=== PATIENT | male | born 1960 | race Two or more races ===

== ENCOUNTER → 2020-09-25 10:04 | Outpatient (REF) | payer MEDICARE, MEDICAID, SELFPAY | LOC: HO.CARD 10:04 | PROVIDERS: Visit Provider Internal Medicine Cardiovascular Disease | DX: Z13.89 Encounter for screening for other disorder (principal) ==

== ENCOUNTER 2020-10-05 23:17 | Emergency (ER) | payer MEDICARE, MEDICAID, SELFPAY ==
--- NOTE | 2020-10-05 | ECG_ITS ---
Test Reason : CP Blood Pressure : / mmHG Vent. Rate : 062 BPM Atrial Rate : 062 BPM P-R Int : 160 ms QRS Dur : 082 ms QT Int : 416 ms P-R-T Axes : 050 015 -10 degrees QTc Int : 422 ms Normal sinus rhythm Normal ECG No previous ECGs available Referred By: Matthew Maher Electronically Signed By:DAPHNE DAO
--- NOTE | ~2020-10-05 | XR_ITS ---
EXAMINATION: XR CHEST CLINICAL INFORMATION: Chest pain, Covid positive COMPARISON: None TECHNIQUE: Frontal view of the chest was obtained. FINDINGS: No significant abnormality is noted involving the heart, lungs, mediastinum, bony thorax or soft tissues. XR/XR chest 1V IMPRESSION: Unremarkable examination.
[2020-10-05 23:23] VITALS: BP 136/65; PULSE 65; RESP 16; TEMP 36.8; O2SAT 99; BMI 33.2
[2020-10-05 23:29] VITALS: BP 139/81; PULSE 63; RESP 14; TEMP 36.8; O2SAT 98
--- NOTE | 2020-10-05 23:38 | ED.CHESTPAIN ---
HPI - Chest Pain General Chief Complaint: Chest Pain Stated Complaint: cp Time Seen by Provider: 10/05/20 23:38 Source: patient Mode of arrival: ambulatory Limitations: no limitations History of Present Illness HPI narrative: Patient nonsmoker no obstructive coronary artery disease in the past had chest pain 2018 and cardiac catheterization was done which was negative was diagnosed with COVID today as outpatient had slight headache sore throat for last 2 days no shortness of breath no cough comes here as he noticed left-sided dull pain for last half an hour gone after arrival to the ER complaint: chest pain Onset (ago): hour(s) Timing of current episode: constant Prior episodes: Yes Onset: during rest Pain location: left chest Pain radiation: none Severity: mild Quality: aching Relieving factors: nothing Related Data Allergies Allergy/AdvReac Type Severity Reaction Status Date / Time aspirin [ASPIRIN] Allergy Unknown ITCHING Unverified 03/14/20 19:38 penicillin G Allergy Unknown Verified 12/20/19 00:00 Penicillins [PENICILLINS] Allergy Unknown SWELLING Unverified 03/14/20 19:38 Review of Systems Review of Systems: Constitutional : No Weight loss, No Fever, No Chills ENT/Mouth : No sore throat, No Rhinorrhea Eyes: No Eye Pain, No Swelling Cardiovascular : + Chest Pain, no palpitations Respiratory : No Cough, No Sputum, no shortness of breath Gastrointestinal : no Nausea, No Vomiting, No Diarrhea, No abdominal Pain, no black stools Genitourinary : No Dysuria, No Urinary Frequency Musculoskeletal : No joint pain, No Myalgias, No Joint Swelling Skin : No Skin Lesions, No rash Neuro : No Weakness, No Numbness, No Dizziness, No Headache Psych : No Anxiety/Panic, No Depression Heme/Lymph: No Bruising, No Lymphadenopathy Endocrine : No Polyuria, No Polydipsia All other systems reviewed and are negative PMFSH Past Medical History Surgical History (Updated 10/06/20 @ 01:00 by Matthew Maher MD) Hx of cardiac cath Social History Social History Alcohol intake: never Smoking Status: Never smoker Use of substances other than those prescribed or required for medical reasons: No Advance Directives: No Physical Exam Vital Signs: Vital Signs: Last Vital Signs Temp 98.3 F 10/05/20 23:29 Pulse 63 10/05/20 23:29 Resp 14 10/05/20 23:29 BP 139/81 04/10/21 23:29 Pulse Ox 98 10/05/20 23:29 Body Mass Index 33.2 Appearance: Alert. Oriented X3. No acute distress. Eyes: Pupils equal, round and reactive to light. ENT: Pharynx normal. Neck: Normal inspection. Neck supple. CVS: Normal heart rate and rhythm. Pulses normal. Respiratory: No respiratory distress. Breath sounds normal. Abdomen: Soft and nontender. Bowel sounds are present, no mass palpable, no CVA tenderness Skin: Skin warm and dry. Normal skin color. Normal skin turgor. Extremities: No lower extremity edema. No calf tenderness Neuro: Oriented X 3. No motor deficit. No sensory deficit. MDM - Chest Pain MDM Narrative Medical decision making narrative: Patient has atypical chest pain EKG without any ischemic changes D-dimer negative recent cardiac catheterization 2 years ago was negative will discharge patient home likely noncardiac chest pain Lab Data Attestation: I reviewed the patient's lab results. Result diagrams: 10/06/20 00:07 10/06/20 00:07 Labs: Lab Results 10/06/20 10/06/20 10/06/20 Range/Units 00:07 00:07 00:07 WBC 4.9 (4.8-10.8) X10*3/uL RBC 4.44 L (4.60-5.80) X10*6/uL Hgb 13.8 L (14.0-18.0) g/dl Hct 39.7 L (42-52) % MCV 89.4 (80-98) fL MCH 31.1 (27.0-33.0) pg MCHC 34.8 (31.0-36.0) g/dl RDW 12.4 (11.0-16.0) % Plt Count 238 (160-400) X10*3/uL MPV 9.6 (9.4-12.4) fL Immature Gran % (Auto) 0.2 (0.0-0.4) % Neut % (Auto) 18.7 L (45-73) % Lymph % (Auto) 61.5 H (20-40) % Caroline % (Auto) 15.4 H (2-11) % Eos % (Auto) 3.8 (0-4) % Baso % (Auto) 0.4 (0-2) % Lymph # (Auto) 3.0 (1.2-4.9) X10*3/uL Caroline # (Auto) 0.8 (0.1-1.2) X10*3/uL Eos # (Auto) 0.2 (0.0-0.4) X10*3/uL Baso # (Auto) 0.0 (0.0-0.2) X10*3/uL Abs Immat Gran (auto) 0.01 (0.00-0.03) X10*3/uL Absolute Neuts (auto) 0.9 L (2.0-8.3) X10*3/uL Absolute Nucleated RBC 0.000 (0.0-0.012) X10*3/uL Nucleated RBC % (auto) 0.0 (0.0-0.2) /100WBC Smear Tech's Comments VERIFIED PT 11.9 (10.8-13.0) SEC INR 1.0 (0.9-1.1) APTT 32.7 (24.1-38.0) SEC D-Dimer < 200 NG/ML Sodium 138 (135-145) mmol/L Potassium 4.3 (3.3-5.1) mmol/L Chloride 107 (96-108) mmol/L Carbon Dioxide 22 (22-29) mmol/L Anion Gap 13 (12-20) BUN 15 (9-16) mg/dL Creatinine 0.85 (0.5-1.4) mg/dL Estim Creat Clear Calc 111.5 Estimated GFR > 60 Random Glucose 112 (60-115) mg/dL Calcium 8.5 (8.4-10.2) mg/dL Troponin I High Sens (<3.5-35.0) ng/L 10/06/20 Range/Units 00:07 WBC (4.8-10.8) X10*3/uL RBC (4.60-5.80) X10*6/uL Hgb (14.0-18.0) g/dl Hct (42-52) % MCV (80-98) fL MCH (27.0-33.0) pg MCHC (31.0-36.0) g/dl RDW (11.0-16.0) % Plt Count (160-400) X10*3/uL MPV (9.4-12.4) fL Immature Gran % (Auto) (0.0-0.4) % Neut % (Auto) (45-73) % Lymph % (Auto) (20-40) % Caroline % (Auto) (2-11) % Eos % (Auto) (0-4) % Baso % (Auto) (0-2) % Lymph # (Auto) (1.2-4.9) X10*3/uL Caroline # (Auto) (0.1-1.2) X10*3/uL Eos # (Auto) (0.0-0.4) X10*3/uL Baso # (Auto) (0.0-0.2) X10*3/uL Abs Immat Gran (auto) (0.00-0.03) X10*3/uL Absolute Neuts (auto) (2.0-8.3) X10*3/uL Absolute Nucleated RBC (0.0-0.012) X10*3/uL Nucleated RBC % (auto) (0.0-0.2) /100WBC Smear Tech's Comments PT (10.8-13.0) SEC INR (0.9-1.1) APTT (24.1-38.0) SEC D-Dimer NG/ML Sodium (135-145) mmol/L Potassium (3.3-5.1) mmol/L Chloride (96-108) mmol/L Carbon Dioxide (22-29) mmol/L Anion Gap (12-20) BUN (9-16) mg/dL Creatinine (0.5-1.4) mg/dL Estim Creat Clear Calc Estimated GFR Random Glucose (60-115) mg/dL Calcium (8.4-10.2) mg/dL Troponin I High Sens < 3.5 (<3.5-35.0) ng/L ECG Data ECG #1: Attestation: I personally reviewed and interpreted this ECG as follows: Interpretation: Normal sinus rhythm heart rate 62 beats per minute normal axis normal intervals no acute ST-T changes impression normal EKG and no ischemia Scores Heart Score History: -0- slightly suspicious ECG: -0- normal Age: -1- >45 - <65 Risk factory: -0- no risk factors known Troponin: -0- < or = normal limit Score: 1 Risk: 1.7% Discharge Plan Discharge Clinical Impression: Chest pain Qualifiers: Chest pain type: precordial pain Qualified Code(s): R07.2 - Precordial pain Patient Disposition: Home, Self-Care Instructions: Chest Pain (ED) Additional Instructions: Follow-up with PCP/oracle adf consultant for further workup Report to the ER if recurrence of the pain
[2020-10-06 00:14] LABS: Basophils Percent Auto 0.4 % (0-2); Eosinophils Absolute Auto 0.2 X10*3/uL (0.0-0.4); Eosinophils Percent Auto 3.8 % (0-4); Hematocrit 39.7 % (42-52); Hemoglobin 13.8 g/dl (14.0-18.0); Imm Gran Abs Auto 0.01 X10*3/uL (0.00-0.03); Imm Gran Pct Auto 0.2 % (0.0-0.4); Lymphocytes Percent Auto 61.5 % (20-40); MANUAL DIFF FLAG SCAN; Mean Corpuscular HGB Conc 34.8 g/dl (31.0-36.0); Mean Corpuscular Hemoglobin 31.1 pg (27.0-33.0); Mean Corpuscular Volume 89.4 fL (80-98); Mean Platelet Volume 9.6 fL (9.4-12.4); Monocytes Absolute Auto 0.8 X10*3/uL (0.1-1.2); Monocytes Percent Auto 15.4 % (2-11); Neutrophils Absolute Auto 0.9 X10*3/uL (2.0-8.3); Neutrophils Percent Auto 18.7 % (45-73); Platelet Count 238 X10*3/uL (160-400); Red Blood Count 4.44 X10*6/uL (4.60-5.80); Red Cell Distribution Width 12.4 % (11.0-16.0); SCAN SMEAR FLAG 1; White Blood Count 4.9 X10*3/uL (4.8-10.8)
[2020-10-06 00:38] LABS: Anion Gap 13 (12-20); Blood Urea Nitrogen 15 mg/dL (9-16); Calcium 8.5 mg/dL (8.4-10.2); Carbon Dioxide 22 mmol/L (22-29); Chloride 107 mmol/L (96-108); Creatinine Clr Calc Pharmacy 111.5; Estimated Glomerular Filt Rate > 60; Glucose Random 112 mg/dL (60-115); Potassium 4.3 mmol/L (3.3-5.1); Sodium 138 mmol/L (135-145)
[2020-10-06 00:44] LABS: SLIDE REVIEW VERIFIED
[2020-10-06 00:46] LABS: Troponin-I High Sensitivity < 3.5 ng/L (<3.5-35.0)
[2020-10-06 01:09] LABS: Prothrombin Time 11.9 SEC (10.8-13.0)
[2020-10-06 01:12] LABS: Partial Thromboplastin Time 32.7 SEC (24.1-38.0)
[2020-10-06 01:16] LABS: D Dimer < 200 NG/ML
== END 2020-10-06 01:53 | disposition home or self-care (01) ==
PROVIDERS: Emergency Provider Internal Medicine; PCP Internal Medicine
DX: R07.2 Precordial pain (principal)
CPT/HCPCS: 36415; 71045; 80048; 84484; 85025; 85379; 85610; 85730; 93005; 99284; 99285

== ENCOUNTER 2020-10-24 14:50 | Outpatient (REF) | payer MEDICARE, MEDICAID, SELFPAY ==
[2020-10-24 15:31] LABS: COVID-19 Test Positive (Negative)
== END 2020-10-24 14:51 | disposition home or self-care (01) ==
LOC: HO.LAB 14:50
PROVIDERS: Visit Provider Internal Medicine
DX: Z20.822 Contact with and (suspected) exposure to COVID-19 (principal)
CPT/HCPCS: 36415; 87635; C9803

== ENCOUNTER 2020-11-27 15:22 | Outpatient (REF) | payer MEDICARE, MEDICAID, SELFPAY ==
--- NOTE | ~2020-11-27 | US_ITS ---
EXAMINATION: US THYROID CLINICAL INFORMATION: Multinodular thyroid. COMPARISON: Ultrasound soft tissue head/neck thyroid dated 08/08/2018. TECHNIQUE: Linear transducer grayscale and color Doppler examination with attention to the region of the thyroid. FINDINGS: SIZE: Measurements of the thyroid lobes and nodules are given in sagittal, anteroposterior and transverse dimensions respectively. Right Thyroid Lobe: 4.4 x 1.5 x 1.1 cm, volume 3.8 mL. Previously 4.5 x 1.6 x 1.1 cm, volume 4.1 mL. Parenchyma: The gland echotexture is homogeneous. Thyroid vascularity is normal. Left Thyroid Lobe: 4.8 x 1.3 x 1.5 cm, volume 4.9 mL. Previously 4.7 x 1.6 x 1.6 cm, volume 6.3 mL. Parenchyma: The gland echotexture is homogeneous. Thyroid vascularity is normal. Isthmus: 0.3 cm in maximum AP dimension. Previously 0.3 cm. Estimated total number of nodules greater than or equal to 1 cm: 0. Sew On Operator nodules are described as follows: 1. Location: Right anterior mid. Size: 0.3 x 0.2 x 0.2 cm, volume 0.01 mL. Previously: 0.3 x 0.2 x 0.3 cm, volume 0.01 mL. Nodule characteristics: Composition: Cannot be determined (2). Echogenicity: Hypoechoic (2). Shape: Not taller than wide (0). Margins: Smooth (0). Echogenic Foci: None (0). ACR TI-RADS total points: 4 ACR TI-RADS category: 4 Comparison: No significant change. 2. Location: Left inferior. Size: 0.9 x 0.6 x 0.6 cm, volume 0.17 mL. Previously: 0.6 x 0.5 x 0.4 cm, volume 0.06 mL. Nodule characteristics: Composition: Cystic(0). ACR TI-RADS total points: 0 ACR TI-RADS category: 1 Comparison: No significant change. NODES: No lymphadenopathy is seen in the tissue surrounding the thyroid gland. US/US thyroid IMPRESSION: 1. Small cyst left lower pole 0.9 cm. 2. Tiny hypoechoic nodule on right, under 5 mm (TI-RADS 4). 3. No new nodules or adenopathy. ACR TI-RADS RECOMMENDATION REFERENCE: Ultrasound-guided fine-needle aspiration, followup ultrasound, no further follow up. * TR4 (4-6 points): FNA if more than or equal to 1.5 cm in maximum dimension, followup ultrasound in 1, 2, 3 and 5 years if 1 to 1.4 cm in maximum dimension. No follow up if under 1 cm.
== END 2020-11-27 15:23 | disposition home or self-care (01) ==
LOC: HO.US 15:22
PROVIDERS: PCP Family Medicine; Visit Provider Internal Medicine
DX: E04.2 Nontoxic multinodular goiter (principal)
CPT/HCPCS: 76536

== ENCOUNTER → 2021-01-01 09:16 | Outpatient (BNVA) | payer MEDICARE, MEDICAID, SELFPAY | PROVIDERS: PCP Internal Medicine; Visit Provider Internal Medicine | CPT/HCPCS: Q3014 ==

== ENCOUNTER → 2021-02-07 09:42 | Outpatient (REF) | payer MEDICARE, MEDICAID, SELFPAY ==
--- NOTE | ~2021-02-07 | NM_ITS ---
Lexiscan Myocardial perfusion study Indication: Coronary artery disease, myocardial infarction, assess for ischemia Technique: The patient was brought in for a Lexiscan perfusion study on 02/07/2021 and was injected 0.4 mg of Lexiscan intravenously. Within a minute of this injection 40 mCi of sestamibi was given intravenously. Images were obtained using the SPECT gamma camera interlaced with the gating device. Images were obtained in supine position. Resting perfusion study was performed on 02/10/2021. Patient was administered 40 mCi of sestamibi intravenously at rest. Images were then obtained in supine position. Total DLP 120mGy-cm. Images were processed with the software and compared side to side in short axis, horizontal long axis and vertical long axis views. Findings: Raw acquisition was reviewed. The stress perfusion study showed mildly diminished tracer uptake in the inferior wall from basal to midportion. There is improvement with CT attenuation correction and hence suggestive of diaphragmatic attenuation artifact. The gated study shows normal LV systolic function with calculated LVEF of 66%. LV cavity is normal in size. The gated study shows normal wall thickening and contraction of segments. Resting study shows no significant perfusion abnormality. Gating at rest reveals normal wall motion with ejection fraction at 66%. The findings are consistent with no reversible or fixed perfusion abnormality. NM/NM merced perf SPECT rest & str Impression: 1. Myocardial perfusion imaging study shows normal myocardial perfusion. 2. Gated LVEF is 66% during stress and rest. 3. Transient ischemic dilatation not present. EKG component of the test reported separately.
--- NOTE | 2021-02-07 09:45 | CA_ITS ---
Acquisition Time: 2021-02-07 09:47:25 Total Exercise Time: 00:02:00 Test Indications: Chest Pain Medications: GEMFIBROZIL LEVOTHYROXINE OMEPRAZOLE PAROXETINE PHENYTOIN CLONAZAPAM Protocol: LEXISCAN Max HR: 153 BPM 95% of Pred: 161 BPM Max BP: 140/086 mmHG Max Work Load: 1.6 METS Pharmacological stress test with Lexiscan injection, while walking on treadmill for 2 min with moderate sob and fatigue, no chest pain, without arrythmia, with normotensive response to injection, with nondiagnostic EKG for ischemia. In recovery he continued to have sob and fatigue that was treated with Aminophylline 75mg IVP to reverse Lexiscan with improvement in symptoms. Nuclear images pending. Test reviewed with Dr Spring. Referred By: Sriram Livingston Overread By: LAZARUS SCHMIDT
== END ==
LOC: HO.CARD 09:42
PROVIDERS: Visit Provider Internal Medicine Cardiovascular Disease
DX: R07.9 Chest pain, unspecified (principal); I25.10 Atherosclerotic heart disease of native coronary artery without angina pectoris; I21.9 Acute myocardial infarction, unspecified; Z79.899 Other long term (current) drug therapy
CPT/HCPCS: 78452; 93017; A9500; J0280; J2785

== ENCOUNTER 2021-02-17 14:18 | Outpatient (REF) | payer MEDICARE, MEDICAID, SELFPAY ==
--- NOTE | 2021-02-19 13:25 | MHC.AU.ANO ---
Adult Audiological Evaluation Date of Visit: 02/17/21 Skin Grader Used: Lao- In Person Reason for Appointment: Patient reports significant difficulty hearing in most situations. He finds that if people are not directly in front of him, he cannot understand what they are saying. He has been placing the television at a loud volume. Patient feels he has experienced hearing difficulty since childhood, but thinks it has gotten worse as he gets older. He experiences intermittent tinnitus. Does patient feel they have a hearing loss?: Yes If Yes, Which Ear?: Both Ears Has hearing been tested previously?: No Ear History: Recent Ear Drainage: None Reported Recent Ear Pain: None Reported Family History of Hearing Loss?: No Recent Ear Infections: None Reported Bothersome Tinnitus/Ringing/Noises in Ears: Intermittent History of occupational noise exposure?: No History: No Medical History: Medical History: Per referral, history of seizure disorder, tremor, GERD Otoscopy: Right Ear: Unremarkable Left Ear: Unremarkable Tympanometry: Tympanometry performed due to: To assess integrity of the middle ear system Right Ear: Normal Middle Ear System (Type A) Left Ear: Reduced Middle Ear Compliance (Type As) Hearing Evaluation: Transducer(s) Used: Insert Earphones Method: Conventional Audiometry Stimuli Used: Pure Tones Right Ear: Description of Hearing: Severe to profound mixed hearing loss Left Ear: Description of Hearing: Severe to profound mixed hearing loss Speech Recognition Threshold (SRT): Method Used: Recorded Lists Right Ear: 75 dBHL Left Ear: 70 dBHL Word Discrimination: Method: Recorded Lists Word Lists Used: Lista Bisil?bica (Lao) Right Ear: 80% at 100 dBHL Left Ear: 88% at 100 dBHL Recommendations: Audiological re-evaluation in one year. Trial with amplification is recommended. Medical clearance from a physician is required before fitting. See Hearing Aid Evaluation report for more information. Diagnosis: Primary Diagnosis: H90.3 Bilateral Sensorineural Hearing Loss Signature: Provider: Yariel Mackay, KADE-A
--- NOTE | 2021-02-19 13:30 | MHC.AU.ANO ---
Adult Audiological Evaluation Date of Visit: 02/17/21 Health Informatics Advisor Used: Sudanese- In Person Reason for Appointment: Patient reports significant difficulty hearing in most situations. He finds that if people are not directly in front of him, he cannot understand what they are saying. He has been placing the television at a loud volume. Patient feels he has experienced hearing difficulty since childhood, but thinks it has gotten worse as he gets older. He experiences intermittent tinnitus. Does patient feel they have a hearing loss?: Yes If Yes, Which Ear?: Both Ears Has hearing been tested previously?: No Ear History: Recent Ear Drainage: None Reported Recent Ear Pain: None Reported Family History of Hearing Loss?: No Recent Ear Infections: None Reported Bothersome Tinnitus/Ringing/Noises in Ears: Intermittent History of occupational noise exposure?: No History: No Medical History: Medical History: Per referral, history of seizure disorder, tremor, GERD Otoscopy: Right Ear: Unremarkable Left Ear: Unremarkable Tympanometry: Tympanometry performed due to: To assess integrity of the middle ear system Right Ear: Normal Middle Ear System (Type A) Left Ear: Reduced Middle Ear Compliance (Type As) Hearing Evaluation: Transducer(s) Used: Insert Earphones Method: Conventional Audiometry Stimuli Used: Pure Tones Right Ear: Description of Hearing: Severe to profound mixed hearing loss Left Ear: Description of Hearing: Severe to profound mixed hearing loss Speech Recognition Threshold (SRT): Method Used: Recorded Lists Right Ear: 75 dBHL Left Ear: 70 dBHL Word Discrimination: Method: Recorded Lists Word Lists Used: Lista Bisil?bica (Sudanese) Right Ear: 80% at 100 dBHL Left Ear: 88% at 100 dBHL Recommendations: Audiological re-evaluation in one year. Trial with amplification is recommended. Medical clearance from a physician is required before fitting. See Hearing Aid Evaluation report for more information. Consult with Ear, Nose, and Throat may be warranted to address severe to profound mixed hearing loss. Diagnosis: Primary Diagnosis: H90.3 Bilateral Sensorineural Hearing Loss Signature: Provider: Yariel Mackay, [facility]
--- NOTE | 2021-02-19 13:31 | MHC.AU.HAS ---
Hearing Aid Evaluation Date of Visit: 02/17/21 Breaker Layer Used: Tajik- In Person Historical Information: Description of Hearing: Severe to profound mixed hearing loss bilaterally Current personal amplification information, if applicable: Summary: Patient was seen for audiological evaluation (see separate report for details). Patient's hearing loss is significantly impacting daily communication. Hearing Aid Prescription: Based on the individual?s shared listening needs, communication environments, dexterity, desire for connectivity, and personal preferences, the following prescription for amplification has been made: Right ear: Flatlock Sewing Machine Operator: Phonak Model: Cyndy P70-UP Battery Size: 675 Color: P1 Type of Mold: Microsonic skeleton Left ear: Flatlock Sewing Machine Operator: Phonak Model: Cyndy P70-UP Battery Size: 675 Color: P1 Type of Mold: Microsonic skeleton Action Taken/Action Needed: Earmold Impressions Taken Prior authorization to be requested Medical Clearance to be requested from PCP/ENT Hearing Instrument Fitting to be scheduled when materials arrive Primary Diagnosis: H90.3 Bilateral Sensorineural Hearing Loss Signature: Provider: Yariel Mackay, KADE-A
--- NOTE | 2021-02-19 13:32 | MHC.AU.MED ---
Medical Clearance for Hearing Instrumentation Date: 02/19/21 Patient Name: Vinnie Salcido Date of : 1960 Primary Care Provider: Referring Provider: Paty Celaya MD We have seen your patient on 02/17/21 and have determined that they are a candidate for amplification (See accompanying report). Specifically, they would benefit from: Hearing aid use in both ears There is a statute that addresses Medical Evaluation Requirements prior to fitting a patient with a hearing aid. According to [place] statute 265 CMR:6.03(1), (a) General. Except as provided in 265 CMR 6.03(1)(b), a boiling off winder shall not sell a hearing aid unless the prospective user has presented to the boiling off winder a written statement signed by a licensed physician that states that the patient's hearing loss has been medically evaluated and the patient may be considered a candidate for a hearing aid. The medical evaluation must have taken place within the preceding six months. Please note: Due to the [place] Statute referenced above, we cannot accept a signature other than that of a licensed physician. WOOD SCIENCE PROFESSOR and PA signatures cannot be accepted. I am in agreement with the above recommendation. There is no medical contraindication for hearing instrumentation. Physician Signature Date Physician Name (Printed)
== END 2021-02-17 14:19 | disposition home or self-care (01) ==
LOC: HO.SH 14:18
PROVIDERS: Visit Provider Family Medicine
DX: Z46.1 Encounter for fitting and adjustment of hearing aid (principal); H90.3 Sensorineural hearing loss, bilateral
CPT/HCPCS: 92557; 92567; 92591; V5275

== ENCOUNTER 2021-03-27 08:51 | Outpatient (REF) | payer MEDICARE, MEDICAID, SELFPAY ==
--- NOTE | 2021-04-04 14:00 | MHC.AU.HFA ---
Hearing Instrument Fitting- Adult- Binaural Date of Visit: 03/27/21 It Compliance Analyst Used: Yoruba- In Person Hearing Instruments Dispensed: Right Ear: Pl Sql Developer: Phonak Model: Cyndy P70-UP Serial Number: [id number] Repair Warranty: 05/27/2024 Loss and Damage Warranty: 05/27/2024 Service Plan: 03/27/2022 Battery Size: 675 Color: P1 Type of Mold: Microsonic Skeleton, M2000, Clear, Small Vent Left Ear: Pl Sql Developer: Phonak Model: Cyndy P70-UP Serial Number: [id number] Repair Warranty: 05/27/2024 Loss and Damage Warranty: 05/27/2024 Service Plan: 03/27/2022 Battery Size: 675 Color: P1 Type of Mold: Microsonic Skeleton, M2000, Clear, Small Vent Summary of Fitting: Feedback sr. social media & mobile manager run. Verifit performed and levels adjusted to better reach targets. Patient felt the initial gain was too loud- lowered to 80% target. Patient was pleased with the sound. Hearing aid care and maintenance were discussed and practiced. Recommendations: A hearing instrument follow-up was scheduled. Diagnosis Code(s): Primary Diagnosis: H90.3 Bilateral Sensorineural Hearing Loss Signature: Provider: Yariel Mackay, CCC-A
== END 2021-03-27 08:52 | disposition home or self-care (01) ==
LOC: HO.HAP 08:51
PROVIDERS: Visit Provider Internal Medicine Geriatric Medicine
DX: Z46.1 Encounter for fitting and adjustment of hearing aid (principal); H90.3 Sensorineural hearing loss, bilateral
CPT/HCPCS: V5011; V5020; V5160; V5261; V5264; V5266

== ENCOUNTER 2021-04-10 08:07 | Outpatient (REF) | payer MEDICARE, MEDICAID, SELFPAY | END 2021-04-10 08:08 | disposition home or self-care (01) | LOC: HO.HAP 08:07 | PROVIDERS: Visit Provider Internal Medicine | DX: Z13.89 Encounter for screening for other disorder (principal) ==

== ENCOUNTER 2021-05-12 17:44 | Emergency (ER) | payer MEDICARE, MEDICAID, SELFPAY ==
--- NOTE | ~2021-05-12 | XR_ITS ---
EXAMINATION: XR CHEST CLINICAL INFORMATION: Cough and URI symptoms. COMPARISON: Chest radiograph dated 10/05/2020. TECHNIQUE: Frontal view of the chest was obtained. FINDINGS: Minimal linear atelectasis in the left lung base. No pleural effusion or pneumothorax. Stable cardiomediastinal silhouette. No acute osseous abnormality. XR/XR chest 1V IMPRESSION: Minimal left basilar atelectasis.
[2021-05-12 18:41] VITALS: BP 155/84; PULSE 79; RESP 18; TEMP 36.7; O2SAT 99; BMI 32.0
[2021-05-12 19:08] LABS: COVID-19 Test Negative (Negative)
[2021-05-12 19:37] VITALS: BP 142/65; PULSE 77; RESP 18; TEMP 36.4; O2SAT 97
[2021-05-12 19:41] VITALS: BP 151/82; PULSE 78; RESP 20; TEMP 36.7; O2SAT 99
--- NOTE | 2021-05-12 21:25 | ED.URI ---
HPI - URI/Sore Throat General Chief Complaint: Upper Respiratory Symptoms Stated Complaint: cough sore throat congestion headache Time Seen by Provider: 05/12/21 20:52 Source: patient Mode of arrival: ambulatory Limitations: language barrier (Maltese-speaking) History of Present Illness MD elicited complaint: cough, sore throat, rhinorrhea, nasal congestion and sinus pain Onset (ago): day(s) (For the past few days worse today) Consistency: constant and progressively worsening Severity: moderate Description of mucous: clear, watery and yellow Able to tolerate fluids by mouth: Yes Exacerbating factors: swallowing Relieving factors: nothing Associated symptoms: chills, headache, rhinorrhea, nasal congestion, sore throat and cough Treatments prior to arrival: none Related Data Home Medications Medication Instructions Recorded Confirmed benztropine 0.5 mg tablet 0.5 mg PO BID 01/01/21 01/01/21 carvedilol 3.125 mg tablet 3.125 mg PO BID 01/01/21 01/01/21 cholecalciferol (vitamin D3) 50 50 mcg PO DAILY 01/01/21 01/01/21 mcg (2,000 unit) capsule clonazepam 0.5 mg tablet 0.5 mg PO DAILY PRN 01/01/21 01/01/21 gemfibrozil 600 mg tablet 600 mg PO DAILY 01/01/21 01/01/21 levothyroxine 25 mcg tablet 25 mcg PO DAILY 01/01/21 01/01/21 losartan 50 mg tablet 50 mg PO QPM 01/01/21 01/01/21 omeprazole 20 mg capsule,delayed 20 mg PO BID 01/01/21 01/01/21 release paroxetine HCl 10 mg tablet 10 mg PO DAILY 01/01/21 01/01/21 phenytoin sodium extended 100 mg 200 mg PO BID 01/01/21 01/01/21 capsule Previous Rx's Medication Instructions Recorded codeine 10 mg-guaifenesin 100 mg/5 5 ml PO Q6H PRN #120 ml 05/12/21 mL oral liquid (Guaifenesin AC) doxycycline hyclate 100 mg tablet 100 mg PO BID 14 Days #28 tab 05/12/21 loratadine 10 mg tablet (Claritin) 10 mg PO DAILY PRN #14 tab 05/12/21 prednisone 20 mg tablet 20 mg PO DAILY 5 Days #5 tab 05/12/21 Allergies Allergy/AdvReac Type Severity Reaction Status Date / Time aspirin [ASPIRIN] Allergy Unknown ITCHING Verified 05/12/21 18:40 penicillin G Allergy Unknown Unknown Verified 05/12/21 18:40 Penicillins [PENICILLINS] Allergy Unknown SWELLING Verified 05/12/21 18:40 Review of Systems Review of Systems: Constitutional : Positive chills, No Weight loss, No Fever, No Night Sweats, No Fatigue, No Malaise ENT/Mouth : Positive sore throat/nasal congestion/rhinorrhea/sinus pressure pain, No Hearing loss, No Ear Pain, No Hoarseness, No Swallowing Difficulty Eyes: No Eye Pain, No Swelling, No Redness, No Foreign Body, No Discharge, No Vision Changes Cardiovascular : No Chest Pain, No SOB, No Dyspnea on Exertion, No Orthopnea, No Edema, No Palpitations Respiratory : Positive Cough, No Sputum, No Wheezing, No Smoke Exposure, No Dyspnea Gastrointestinal : No Nausea, No Vomiting, No Diarrhea, No Constipation, No abdominal Pain, No Hematochezia, No Melena Genitourinary : no irregular bleeding, No Dysuria, No Urinary Frequency, No Hematuria, No Urinary Incontinence, No Urgency, No Flank Pain, No Urinary Flow Changes, No Hesitancy Musculoskeletal : No joint pain, No Myalgias, No Joint Swelling Skin : No Skin Lesions, No rash Neuro : No Weakness, No Numbness, No Paresthesias, No Loss of Consciousness, No Dizziness, positive intermittent Headache Psych : No Anxiety/Panic, No Depression, No SI/HI/AH/VH, No Social Issues, Heme/Lymph: No Bruising, No Bleeding,No Lymphadenopathy Endocrine : No Polyuria, No Polydipsia, No Temperature Intolerance Yes all other systems are reviewed and are negative [facility] Past Medical History Attestation statement: The following information was validated with the patient. Medical History Asthma COVID-19 Epilepsy Hypothyroidism Multinodular thyroid Vitamin D deficiency Surgical History Hx of cardiac cath Family History Family History Mother Heart problem Father Hypertension Social History Social History Alcohol intake: never Patient Tobacco Use Status: Never used Tobacco Advance Directives: No Advance Directives Information Provided: No Physical Exam Vital Signs: Vital Signs: Last Vital Signs Temp 98.1 F 05/12/21 19:41 Pulse 78 05/12/21 19:41 Resp 20 05/12/21 19:41 BP 151/82 H 05/12/21 19:41 Pulse Ox 99 05/12/21 19:41 Body Mass Index 32.0 vital signs have been reviewed as normal and appeared to be correct. Blood pressure normal. Heart rate normal. Respiration rate normal. Temperature normal. Oxygen saturation normal. Appearance: Alert. Oriented X3. No acute distress. Head: Normal external exam. Normocephalic. Atraumatic. Eyes: PERRLA. EOMI. Conjunctiva and sclera normal. Eyelids normal. ENT: EAC normal. TM's Normal. Posterior pharynx mildly erythematous. No exudate is noted. Uvula midline. Moist mucous membranes. No trismus noted. No drooling noted. No muffled voice noted. + sinus pressure pain. Neck: Normal inspection. Neck supple. FROM. No adenopathy. Thyroid Normal. No meningeal signs. No neck mass noted. CVS: Normal heart rate and rhythm. Heart sound normal. Pulses normal throughout. No murmurs/rales/gallops. Respiratory: No respiratory distress. Painless inspiration. Breath sounds normal. No wheezes/rales/rhonchi noted. Chest nontender. No accessory muscle usage noted or decreased air movement noted. Back: Full range of motion noted. No rashes/lesion/induration/fluctuance or signs of infection noted. Skin: Skin warm and dry. Normal skin color. Normal skin turgor. No rashes/lesions/lacerations noted. Extremities: No lower extremity edema. No calf tenderness is noted. Extremities exhibit normal range of motion. Extremities nontender. Neuro: Oriented X 3. No motor deficit. No sensory deficit. Reflexes normal. Normal steady gait. No focal neuro deficits noted. Vascular: + radial pulses/+ 2 distal pedal pulses/+2 dorsalis pedis b/l. Normal cap refill. No cyanosis noted to upper extremity nails and lower extremity toes nails. Course Course Course Narrative: 60-year-old male presenting with URI symptoms for the past few days worse today. Denies recent travel or sick contacts. Reports he is up-to-date on his COVID vaccine awaiting to get his booster. Denies any other symptoms complaints or concerns. COVID swab is negative. Pending chest x-ray if negative will DC home with symptomatic treatment instructions return if any new or worsening symptoms to follow up with primary care provider. Patient understands agrees with this plan. MDM - URI/Sore Throat Medical Records Attestation: I reviewed the patient's medical records. Lab Data Attestation: I reviewed the patient's lab results. Labs: Lab Results 05/12/21 Range/Units 18:47 COVID-19 ([facility]) Negative (Negative) COVID-19 Clin Com See Note Imaging Data Chest x-ray: Attestation: I personally reviewed and interpreted this imaging study as follows: Radiologist's impression: FINDINGS: Minimal linear atelectasis in the left lung base. No pleural effusion or pneumothorax. Stable cardiomediastinal silhouette. No acute osseous abnormality. XR/XR chest 1V IMPRESSION: Minimal left basilar atelectasis. Discharge Plan Discharge Clinical Impression: Sinusitis Patient Disposition: Home, Self-Care Instructions: Sinusitis (ED) Prescriptions: New doxycycline hyclate 100 mg tablet 100 mg PO BID 14 Days Qty: 28 RF: 0 prednisone 20 mg tablet 20 mg PO DAILY 5 Days Qty: 5 RF: 0 loratadine [Claritin] 10 mg tablet 10 mg PO DAILY PRN (Reason: allergies) Qty: 14 RF: 0 codeine-guaifenesin [Guaifenesin AC] 10-100 mg/5 mL liquid 5 ml PO Q6H PRN (Reason: cold symptoms) Qty: 120 RF: 0 No Action carvedilol 3.125 mg tablet 3.125 mg PO BID RF: 0 losartan 50 mg tablet 50 mg PO QPM RF: 0 benztropine 0.5 mg tablet 0.5 mg PO BID RF: 0 levothyroxine 25 mcg tablet 25 mcg PO DAILY RF: 0 cholecalciferol (vitamin D3) 50 mcg (2,000 unit) capsule 50 mcg PO DAILY RF: 0 omeprazole 20 mg capsule,delayed release(DR/EC) 20 mg PO BID RF: 0 clonazepam 0.5 mg tablet 0.5 mg PO DAILY PRNRF: 0 gemfibrozil 600 mg tablet 600 mg PO DAILY RF: 0 phenytoin sodium extended 100 mg capsule 200 mg PO BID RF: 0 paroxetine HCl 10 mg tablet 10 mg PO DAILY RF: 0 Referrals: [facility] [Primary Care Provider] - 2 days Print Language: Maltese
--- NOTE | 2021-05-12 21:34 | PC.NURSE ---
PT EVALED BY PROVIDER. WAITING CXR REPORT. NO DISTRESS.
== END 2021-05-12 22:03 | disposition home or self-care (01) ==
PROVIDERS: Emergency Provider Emergency Medicine
DX: J32.9 Chronic sinusitis, unspecified (principal); J45.909 Unspecified asthma, uncomplicated; G40.909 Epilepsy, unspecified, not intractable, without status epilepticus; Z20.822 Contact with and (suspected) exposure to COVID-19
CPT/HCPCS: 36415; 71045; 87635; 99283; 99284

== ENCOUNTER 2021-06-17 14:05 | Outpatient (REF) | payer MEDICARE, MEDICAID, SELFPAY ==
--- NOTE | ~2021-06-17 | MM_ITS ---
EXAMINATION: MM DIAGNOSTIC DIGITAL BREAST TOMOSYNTHESIS, BILATERAL US DIAGNOSTIC ULTRASOUND BREAST, RIGHT CLINICAL INFORMATION: 60-year-old male with retroareolar right breast tenderness 4-6 months. No discharge. No prior breast imaging. COMPARISON: None (current study represents initial baseline exam). TECHNIQUE: Digital breast tomosynthesis is performed in both the craniocaudal and mediolateral oblique views along with computer-aided detection (CAD). Synthesized 2D images are generated from the tomosynthesis. Ultrasound right breast is targeted to the retroareolar and periareolar region. Grayscale imaging and color Doppler are performed without and with harmonics. FINDINGS: There are scattered areas of fibroglandular density (ACR BI-RADS breast composition Category b). There is moderate gynecomastia parenchymal pattern retroareolar right breast with lesser mild involvement on the contralateral left side. Neither breast shows mass or architectural abnormality or abnormal calcifications. There is no skin thickening or coarsening of the stromal markings. The axilla are unremarkable. Ultrasound right breast demonstrates subareolar gynecomastia ultrasound pattern. There is no cystic or solid mass. No architectural abnormality. No skin thickening or edema tracking in soft tissue planes. Results are discussed with the patient at time of visit, using an deaf interpreter. MM/MM tomosynthesis diagnostic BI IMPRESSION: Gynecomastia parenchymal pattern, greater on right. ASSESSMENT: BI-RADS 2: Benign RECOMMENDATION: 1. Patient's breast pain should be managed as needed based on the clinical impression. 2. If clinically indicated, further evaluation may be considered with a surgical consult. Decision to proceed with biopsy should be based on clinical grounds and degree of clinical concern.
== END 2021-06-17 14:06 | disposition home or self-care (01) ==
LOC: HO.MAMMO 14:05
PROVIDERS: PCP Nurse Practitioner Family; Visit Provider Nurse Practitioner Family
DX: N64.4 Mastodynia (principal)
CPT/HCPCS: 76642; 77062; 77066

== ENCOUNTER 2021-11-18 07:42 | Outpatient (REF) | payer MEDICARE, MEDICAID, SELFPAY ==
--- NOTE | ~2021-11-18 | XR_ITS ---
EXAMINATION: XR LUMBOSACRAL SPINE CLINICAL INFORMATION: Low back pain COMPARISON: Radiographs right hip 11/18/2021. TECHNIQUE: Three views of the lumbosacral spine. FINDINGS: There is a transitional vertebrae at L5 with left hemisacralization. The vertebral bodies are normal in height and there is normal lumbar lordosis. No lumbar vertebral compression, spondylolisthesis, or destructive process. Degenerative disc changes are present at L4-L5 with disc narrowing, vacuum disc phenomenon, and mild vertebral spurring. There is mild vertebral spurring mid lumbar spine without disc narrowing. The SI joints and remainder of the sacrum are unremarkable. There is a small bone island lower right ilium. XR/XR lumbar spine 2-3V IMPRESSION: -Transitional vertebrae L5 with left hemisacralization. -Degenerative disc changes L4-L5
--- NOTE | ~2021-11-18 | XR_ITS ---
EXAMINATION: XR HIP, RIGHT CLINICAL INFORMATION: Right hip pain COMPARISON: None TECHNIQUE: AP and lateral projections of the right hip are obtained. FINDINGS: Normal bony mineralization. No fracture, dislocation, destructive process, or arthropathy. No joint narrowing or erosive change. No visible chondrocalcinosis. Soft tissue planes appear normal. Pubis unremarkable. XR/XR hip RT min 2V IMPRESSION: Normal right hip.
--- NOTE | ~2021-11-18 | XR_ITS ---
EXAMINATION: XR KNEE, RIGHT CLINICAL INFORMATION: Pain traveling down lower extremity. Possible osteoarthritis. COMPARISON: None TECHNIQUE: Four views of the right knee. Series includes AP view with weightbearing. FINDINGS: No fracture, dislocation, destructive process. There are osteoarthritic changes medial knee joint compartment with joint narrowing and mild subchondral sclerosis and osteophytes. There is secondary genu varus. No erosive change or visible chondrocalcinosis. No suprapatellar effusion. Hoffa's fat pad appears normal. Axial view patella shows no lateralization, tilting, or joint narrowing. There are numerous varicose vein densities seen overlying the soft tissues mid to lower thigh and lower leg. 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 No effusion. -Numerous varicose veins.
== END 2021-11-18 07:43 | disposition home or self-care (01) ==
LOC: HO.XRAY 07:42
PROVIDERS: PCP Nurse Practitioner Family; Visit Provider Nurse Practitioner Family
DX: M79.604 Pain in right leg (principal); M54.50 Low back pain, unspecified; M25.551 Pain in right hip
CPT/HCPCS: 72100; 73502; 73564

== ENCOUNTER 2021-12-26 08:38 | Outpatient (REF) | payer MEDICARE, MEDICAID, SELFPAY ==
[2021-12-26 11:03] LABS: Free T4 (Free Thyroxine) 0.79 ng/dL (0.71-1.85); Thyroid Stimulating Hormone 2.11 uIU/mL (0.32-4.0); Vitamin D 25-OH Total 39.7 ng/mL (>30)
== END 2021-12-26 08:39 | disposition home or self-care (01) ==
LOC: HO.LAB 08:38
PROVIDERS: Visit Provider Internal Medicine
DX: E04.2 Nontoxic multinodular goiter (principal); E55.9 Vitamin D deficiency, unspecified
CPT/HCPCS: 36415; 82306; 84439; 84443

== ENCOUNTER 2021-12-31 09:49 | Outpatient (REF) | payer MEDICARE, MEDICAID, SELFPAY ==
--- NOTE | ~2021-12-31 | US_ITS ---
EXAMINATION: US THYROID CLINICAL INFORMATION: Nontoxic multinodular goiter. COMPARISON: Thyroid ultrasound 11/27/2020 and 08/08/2018. CT soft tissue neck 08/10/2018. TECHNIQUE: Linear transducer grayscale and color Doppler examination with attention to the region of the thyroid. FINDINGS: SIZE: Measurements of the thyroid lobes and nodules are given in sagittal, anteroposterior and transverse dimensions respectively. Right Thyroid Lobe: 4.1 x 1.6 x 1.2 cm, volume 4.1 mL. Previously 4.4 x 1.5 x 1.1 cm, volume 3.8 mL. Parenchyma: The gland echotexture is homogeneous. Thyroid vascularity is normal. Left Thyroid Lobe: 3.9 x 1.2 x 1.5 cm, volume 3.7 mL. Previously 4.8 x 1.3 x 1.5 cm, volume 4.9 mL. Parenchyma: The gland echotexture is homogeneous. Thyroid vascularity is normal. Isthmus: 0.2 cm in maximum AP dimension. Previously 0.3 cm. Estimated total number of nodules greater than or equal to 1 cm: 0. Application Support Analyst nodules are described as follows: 1. Location: Left low isthmus. Size: 0.8 x 0.4 x 0.6 cm, volume 0.1 mL. Previously: Not measured. Nodule characteristics: Composition: Solid (2). Echogenicity: Cannot be determined (1). Shape: Not taller than wide (0). Margins: Smooth (0). Echogenic Foci: None (0). ACR TI-RADS total points: 3 ACR TI-RADS category: 3 Significant change in size (>/= 20% in 2 dimensions and minimal increase of 2 mm or 50% or greater increase in volume): Not applicable. Change in features: Not applicable. Change in ACR TI-RADS risk category: Not applicable. NODES: No lymphadenopathy is seen in the tissue surrounding the thyroid gland. US/US thyroid IMPRESSION: Unremarkable thyroid ultrasound with multiple bilateral small cysts seen. Solitary solid nodule left thyroid lobe nonsuspicious. Recommend continued follow up. ACR TI-RADS RECOMMENDATION REFERENCE: Ultrasound-guided fine-needle aspiration, followup ultrasound, no further follow up. * TR1 (0 point) and TR 2 (2 points): No FNA or follow up * TR3 (3 points): FNA if more than or equal to 2.5 cm in maximum dimension, followup ultrasound in 1, 3 and 5 years if 1.5 to 2.4 cm in maximum dimension. * TR4 (4-6 points): FNA if more than or equal to 1.5 cm in maximum dimension, followup ultrasound in 1, 2, 3 and 5 years if 1 to 1.4 cm in maximum dimension. * TR5 (more than or equal to 7 points): FNA if more than or equal to 1 cm in maximum dimension, followup ultrasound every year for 5 years if 0.5 to 0.9 cm in maximum dimension. * TR3, TR4 or TR5 nodules that are below the size threshold for follow up receive no follow up.
== END 2021-12-31 09:50 | disposition home or self-care (01) ==
LOC: HO.US 09:49
PROVIDERS: Visit Provider Internal Medicine
DX: E04.2 Nontoxic multinodular goiter (principal); E03.9 Hypothyroidism, unspecified; E55.9 Vitamin D deficiency, unspecified
CPT/HCPCS: 76536; Q3014

== ENCOUNTER 2022-01-07 10:29 | Outpatient (REF) | payer MEDICARE, MEDICAID, SELFPAY ==
[2022-01-07 11:46] LABS: Alanine Aminotransferase 21 U/L (0-40); Anion Gap 13 (12-20); Aspartate Amino Transferase 25 U/L (5-37); Bilirubin Total 0.5 mg/dL (0.0-1.0); Blood Urea Nitrogen 18 mg/dL (9-16); Calcium 8.8 mg/dL (8.4-10.2); Carbon Dioxide 24 mmol/L (22-29); Chloride 107 mmol/L (96-108); Estimated Glomerular Filt Rate > 60; Glucose Random 167 mg/dL (60-115); Phosphorus 3.7 mg/dL (2.7-4.5); Potassium 4.7 mmol/L (3.3-5.1); Sodium 139 mmol/L (135-145); Total Protein 7.5 g/dL (6.5-8.0)
[2022-01-07 11:47] LABS: Albumin Level 4.2 g/dL (3.5-5.0); Alkaline Phosphatase 95 U/L (39-117)
[2022-01-07 12:07] LABS: Free T4 (Free Thyroxine) 0.82 ng/dL (0.71-1.85); Thyroid Stimulating Hormone 1.72 uIU/mL (0.32-4.0); Vitamin D 25-OH Total 41.9 ng/mL (>30)
[2022-01-08 12:42] LABS: Calcium (PTHI) 9.2 mg/dL (8.6-10.3); PTHI 62 pg/mL (16-77)
== END 2022-01-07 10:30 | disposition home or self-care (01) ==
LOC: HO.LAB 10:29
PROVIDERS: Visit Provider Internal Medicine
DX: E04.2 Nontoxic multinodular goiter (principal); E55.9 Vitamin D deficiency, unspecified
CPT/HCPCS: 36415; 80053; 82306; 83970; 84100; 84439; 84443

== ENCOUNTER 2022-09-01 10:03 | Outpatient (REF) | payer MEDICARE, MEDICAID, SELFPAY ==
--- NOTE | ~2022-09-01 | XR_ITS ---
EXAMINATION: XR CHEST CLINICAL INFORMATION: Reason for Exam ACUTE BRONCHITIS COMPARISON: Chest radiograph 05/12/2021 TECHNIQUE: 2 views of the chest FINDINGS: Clear lungs. No pneumothorax or pleural effusion. Unchanged cardiomediastinal silhouette. XR/XR chest 2V IMPRESSION: * Clear lungs.
== END 2022-09-01 10:04 | disposition home or self-care (01) ==
LOC: HO.XRAY 10:03
PROVIDERS: Visit Provider Student in an Organized Health Care Education/Training Program
DX: J20.9 Acute bronchitis, unspecified (principal)
CPT/HCPCS: 71046

== ENCOUNTER 2022-11-24 23:58 | Observation (INO) | payer OTHER, SELFPAY ==
--- NOTE | ~2022-11-24 | XR_ITS ---
EXAMINATION: XR CHEST CLINICAL INFORMATION: Chest pain COMPARISON: 09/01/2022 TECHNIQUE: 2 views of the chest were obtained. FINDINGS: The lungs are clear with no focal consolidation. No evidence of pneumothorax, pulmonary edema, or pleural effusions. Cardiac silhouette appears near the upper limits of normal in size. No acute osseous findings are seen. XR/XR chest 2V IMPRESSION: No acute cardiopulmonary findings.
[2022-11-25 00:01] VITALS: BP 137/81; PULSE 135; RESP 18; TEMP 36.6; O2SAT 96; BMI 30.8
--- NOTE | 2022-11-25 00:05 | ECG_ITS ---
Test Reason : PALPITATIONS Blood Pressure : / mmHG Vent. Rate : 124 BPM Atrial Rate : 000 BPM P-R Int : 000 ms QRS Dur : 080 ms QT Int : 282 ms P-R-T Axes : 000 000 -55 degrees QTc Int : 405 ms Atrial fibrillation with rapid ventricular response Minimal voltage criteria for LVH, may be normal variant ( R in aVL ) Nonspecific ST and T wave abnormality Abnormal ECG When compared with ECG of 05-OCT-2020 23:25, Atrial fibrillation has replaced Sinus rhythm Vent. rate has increased BY [address] now depressed in Anterolateral leads T wave inversion now evident in Anterior leads Referred By: Generic ED Physician Electronically Signed By:AMINAH TOVAR MD
[2022-11-25 00:16] LABS: MANUAL DIFF FLAG NO
[2022-11-25 00:23] LABS: Basophils Percent Auto 0.3 % (0-2); Eosinophils Absolute Auto 0.2 X10*3/uL (0.0-0.4); Eosinophils Percent Auto 2.4 % (0-4); Hematocrit 41.1 % (42.0-52.0); Hemoglobin 14.3 g/dl (14.0-18.0); Imm Gran Abs Auto 0.05 X10*3/uL (0.00-0.03); Imm Gran Pct Auto 0.6 % (0.0-0.4); Lymphocytes Absolute Auto 4.9 X10*3/uL (1.2-4.9); Mean Corpuscular HGB Conc 34.8 g/dl (31.0-36.0); Mean Corpuscular Hemoglobin 30.5 pg (27.0-33.0); Mean Corpuscular Volume 87.6 fL (80.0-98.0); Mean Platelet Volume 9.5 fL (9.4-12.4); Monocytes Absolute Auto 0.8 X10*3/uL (0.1-1.2); Monocytes Percent Auto 8.4 % (2-11); Neutrophils Percent Auto 33.3 % (45-73); Platelet Count 199 X10*3/uL (160-400); Red Blood Count 4.69 X10*6/uL (4.60-5.80); Red Cell Distribution Width 12.1 % (11.0-16.0); White Blood Count 8.9 X10*3/uL (4.8-10.8)
--- NOTE | 2022-11-25 00:26 | ED_ITS ---
HPI - Chest Pain General Chief Complaint: Chest Pain Stated Complaint: Chest pain, palpitations Time Seen by Provider: 11/25/22 00:26 Source: patient Mode of arrival: ambulatory Limitations: no limitations History of Present Illness HPI narrative: Patient's history of nonobstructive coronary disease had GA about 5 years ago cardiac catheterization was negative no stent was placed comes here as while at rest all all of a sudden noticed palpitation episode heart was beating fast with slight chest discomfort no fever no chills no syncope or dizziness. On arrival patient's heart rate was fluctuating between 140-160 AFib patient is prediabetic did not check his blood sugar for a while, on arrival blood sugar was 510. Did complain of increased urination and thirst for a while Related Data Home Medications Medication Instructions Recorded Confirmed benztropine 0.5 mg tablet 0.5 mg PO BID 01/01/21 12/31/21 carvedilol 3.125 mg tablet 3.125 mg PO BID 01/01/21 12/31/21 cholecalciferol (vitamin D3) 50 50 mcg PO DAILY 01/01/21 12/31/21 mcg (2,000 unit) capsule clonazepam 0.5 mg tablet 0.5 mg PO DAILY PRN 01/01/21 12/31/21 gemfibrozil 600 mg tablet 600 mg PO DAILY 01/01/21 12/31/21 levothyroxine 25 mcg tablet 25 mcg PO DAILY 01/01/21 12/31/21 losartan 50 mg tablet 50 mg PO QPM 01/01/21 12/31/21 omeprazole 20 mg capsule,delayed 20 mg PO BID 01/01/21 12/31/21 release paroxetine HCl 10 mg tablet 10 mg PO DAILY 01/01/21 12/31/21 phenytoin sodium extended 100 mg 200 mg PO BID 01/01/21 12/31/21 capsule Previous Rx's Medication Instructions Recorded codeine 10 mg-guaifenesin 100 mg/5 5 ml PO Q6H PRN cold symptoms #120 05/12/21 mL oral liquid (Guaifenesin AC) mL doxycycline hyclate 100 mg tablet 100 mg PO BID sinutitis 14 days 05/12/21 #28 tabs loratadine 10 mg tablet (Claritin) 10 mg PO DAILY PRN allergies #14 05/12/21 tabs Allergies Allergy/AdvReac Type Severity Reaction Status Date / Time aspirin [ASPIRIN] Allergy Unknown ITCHING Verified 12/31/21 13:50 penicillin G Allergy Unknown Unknown Verified 12/31/21 13:50 Penicillins [PENICILLINS] Allergy Unknown SWELLING Verified 12/31/21 13:50 Review of Systems Review of Systems: Yes all other systems are reviewed and are negative [facility] Past Medical History Medical History (Updated 11/25/22 @ 06:23 by Matthew Lawrence MD) Afib Asthma COVID-19 Epilepsy Hypothyroidism Multinodular thyroid Vitamin D deficiency Surgical History Hx of cardiac cath Family History Family History Mother Heart problem Father Hypertension Social History Social History Alcohol intake: never Patient Tobacco Use Status: Never used Tobacco Smoked in Last 30 Days: No Use of substances other than those prescribed or required for medical reasons: No Advance Directives: No Advance Directives Information Provided: No Physical Exam Vital Signs: Vital Signs: Last Vital Signs Temp 97.1 F 11/25/22 02:00 Pulse 84 11/25/22 02:00 Resp 14 11/25/22 02:00 BP 128/76 11/25/22 02:00 Pulse Ox 97 11/25/22 02:00 O2 Del Method Room Air 11/25/22 02:00 BMI result Body Mass Index 30.8 Appearance: Alert. Oriented X3. No acute distress. Eyes: No pallor or icterus ENT: Pharynx normal. Oral Mucosa moist Neck: Normal inspection. Neck supple. CVS: Irregularly irregular tachycardia no murmur rub or gallop, Pulses normal. Respiratory: No respiratory distress. Equal air entry bilateral, no wheezing/rales/rhonchi Abdomen: Soft and nontender. Bowel sounds are present, no mass palpable, no CVA tenderness Skin: Skin warm and dry. Normal skin color. Normal skin turgor. Extremities: No lower extremity edema. No calf tenderness Neuro: Oriented X 3. No motor deficit. Medications Administered Generic Name Dose Route Start Last Admin Trade Name Freq PRN Reason Stop Dose Admin Enoxaparin Sodium 40 mg 11/25/22 04:00 11/25/22 03:55 Enoxaparin Sodium 40 Mg/0.4 Ml Syringe SUBCUT 40 mg DAILY MEGAN Administration Discontinued Medications Generic Name Dose Route Start Last Admin Trade Name Franco PRN Reason Stop Dose Admin Apixaban 5 mg 11/25/22 02:00 11/25/22 02:47 Apixaban 5 Mg Tablet PO 11/25/22 02:01 5 mg ONCE ONE Administration Diltiazem HCl 20 mg 11/25/22 00:43 11/25/22 01:02 Diltiazem Hcl 50 Mg/10 Ml Vial IVPUSH 11/25/22 00:44 20 mg STAT STA Administration Sodium Chloride 1,000 mls @ 999 mls/hr 11/25/22 00:50 11/25/22 02:47 Ns IV 11/25/22 01:50 Infused .Q1H1M ONE Infusion Insulin Glargine 20 unit 11/25/22 02:50 11/25/22 02:59 Insulin Glargine,Hum.Rec.Anlog 100 Unit/Ml 10 Ml Vial SUBCUT 11/25/22 02:51 20 unit ONCE ONE Administration Insulin Human Lispro 14 unit 11/25/22 00:50 11/25/22 01:02 Insulin Lispro 100 Unit/Ml 3 Ml Vial SUBCUT 11/25/22 00:51 14 unit ONCE ONE Administration Insulin Human Lispro 10 unit 11/25/22 02:50 11/25/22 02:59 Insulin Lispro 100 Unit/Ml 3 Ml Vial SUBCUT 11/25/22 02:51 10 unit ONCE ONE Administration Medical Decision Making Medical Decision Making [facility] Narrative: Patient with new onset AFib with rapid ventricular rate also noticed to be diabetic with hyperglycemia will IV hydrate Humalog and Cardizem for tachycardia Patient cardioverted after Cardizem normal sinus rhythm blood sugar improved started on Eliquis for CHADS vascular score of 3 ( HYPERTENSION, GA, DIABETES) Differential Diagnosis Atrial fibrillation/flutter/SVT/ACS Consult Healthcare Provider Management of the patient was discussed with: Hospitalist Lab Data MDM Lab Attestation statement: I reviewed the patient's lab results. 11/25/22 00:09 11/25/22 00:09 Labs: Lab Results 11/25/22 11/25/22 11/25/22 Range/Units 00:09 00:09 00:09 WBC 8.9 (4.8-10.8) X10*3/uL RBC 4.69 (4.60-5.80) X10*6/uL Hgb 14.3 (14.0-18.0) g/dl Hct 41.1 L (42.0-52.0) % MCV 87.6 (80.0-98.0) fL MCH 30.5 (27.0-33.0) pg MCHC 34.8 (31.0-36.0) g/dl RDW 12.1 (11.0-16.0) % Plt Count 199 (160-400) X10*3/uL MPV 9.5 (9.4-12.4) fL Immature Gran % (Auto) 0.6 H (0.0-0.4) % Neut % (Auto) 33.3 L (45-73) % Lymph % (Auto) 55.0 H (20-40) % [place] % (Auto) 8.4 (2-11) % Eos % (Auto) 2.4 (0-4) % Baso % (Auto) 0.3 (0-2) % Lymph # (Auto) 4.9 (1.2-4.9) X10*3/uL [place] # (Auto) 0.8 (0.1-1.2) X10*3/uL Eos # (Auto) 0.2 (0.0-0.4) X10*3/uL Baso # (Auto) 0.0 (0.0-0.2) X10*3/uL Abs Immat Gran (auto) 0.05 H (0.00-0.03) X10*3/uL Absolute Neuts (auto) 3.0 (2.0-8.3) x10*3/uL Absolute Nucleated RBC 0.000 (0.0-0.012) X10*3/uL Nucleated RBC % (auto) 0.0 (0.0-0.2) /100WBC PT (10.0-13.1) SEC INR (0.9-1.1) APTT (26.0-36.4) SEC D-Dimer High Sensitivty NG/ML Sodium 133 L (135-145) mmol/L Potassium 4.1 (3.3-5.1) mmol/L Chloride 102 (96-108) mmol/L Carbon Dioxide 19 L (22-29) mmol/L Anion Gap 16 (12-20) BUN 16 (9-16) mg/dL Creatinine 1.19 (0.5-1.4) mg/dL Estim Creat Clear Calc 85.6 Estimated GFR > 60 POC Glucose (60-115) mg/dL Random Glucose 510 H* (60-115) mg/dL Calcium 9.2 (8.4-10.2) mg/dL Troponin I High Sens < 2.7 (<3.5-35.0) ng/L 11/25/22 11/25/22 Range/Units 00:49 02:16 WBC (4.8-10.8) X10*3/uL RBC (4.60-5.80) X10*6/uL Hgb (14.0-18.0) g/dl Hct (42.0-52.0) % MCV (80.0-98.0) fL MCH (27.0-33.0) pg MCHC (31.0-36.0) g/dl RDW (11.0-16.0) % Plt Count (160-400) X10*3/uL MPV (9.4-12.4) fL Immature Gran % (Auto) (0.0-0.4) % Neut % (Auto) (45-73) % Lymph % (Auto) (20-40) % [place] % (Auto) (2-11) % Eos % (Auto) (0-4) % Baso % (Auto) (0-2) % Lymph # (Auto) (1.2-4.9) X10*3/uL [place] # (Auto) (0.1-1.2) X10*3/uL Eos # (Auto) (0.0-0.4) X10*3/uL Baso # (Auto) (0.0-0.2) X10*3/uL Abs Immat Gran (auto) (0.00-0.03) X10*3/uL Absolute Neuts (auto) (2.0-8.3) x10*3/uL Absolute Nucleated RBC (0.0-0.012) X10*3/uL Nucleated RBC % (auto) (0.0-0.2) /100WBC PT 10.7 (10.0-13.1) SEC INR 0.9 (0.9-1.1) APTT 24.3 L (26.0-36.4) SEC D-Dimer High Sensitivty < 150 NG/ML Sodium (135-145) mmol/L Potassium (3.3-5.1) mmol/L Chloride (96-108) mmol/L Carbon Dioxide (22-29) mmol/L Anion Gap (12-20) BUN (9-16) mg/dL Creatinine (0.5-1.4) mg/dL Estim Creat Clear Calc Estimated GFR POC Glucose 363 H* (60-115) mg/dL Random Glucose (60-115) mg/dL Calcium (8.4-10.2) mg/dL Troponin I High Sens (<3.5-35.0) ng/L Independent Interpretation I performed an independent interpretation of an: EKG Interpretation: Atrial fibrillation with ventricular rate of [address] T wave changes no acute ischemia Critical Care Time Critical Care Time Critical Care Time: Yes Total Critical Care Time: 90 Attestation: The patient was critically ill with a high probability of imminent or life threatening deterioration. I spent greater than 100 minutes of discontinuous time evaluating the patient,delivering critical care at the bedside, discussing and evaluating pertinent data with consultants. Critical care time does not include time spent performing separately billable procedures or teaching. Total time spent performing critical care was 90 minutes. Discharge Plan Discharge Clinical Impression: Atrial fibrillation with RVR, Diabetes mellitus with hyperglycemia Patient Disposition: Admitted As Inpatient
[2022-11-25 00:28] VITALS: BP 132/72; PULSE 118; RESP 22; TEMP 36.5; O2SAT 98
[2022-11-25 00:39] LABS: Anion Gap 16 (12-20); Blood Urea Nitrogen 16 mg/dL (9-16); Calcium 9.2 mg/dL (8.4-10.2); Carbon Dioxide 19 mmol/L (22-29); Chloride 102 mmol/L (96-108); Creatinine Clr Calc Pharmacy 85.6; Estimated Glomerular Filt Rate > 60; Glucose Random 510 mg/dL (60-115); Potassium 4.1 mmol/L (3.3-5.1); Sodium 133 mmol/L (135-145); Troponin-I High Sensitivity < 2.7 ng/L (<3.5-35.0)
--- NOTE | 2022-11-25 00:58 | PC.NURSE ---
20g IV inserted to left AC
[2022-11-25 01:02] LABS: INTERNATIONAL NORM RATIO 0.9 (0.9-1.1); Prothrombin Time 10.7 SEC (10.0-13.1)
[2022-11-25] MEDS: 0.9 % Sodium Chloride 1,000 ML 999 ML IV (01:02)
[2022-11-25] MEDS: dilTIAZem HCL 50 MG/10 ML VIAL 20 MG IVPUSH (01:02)
[2022-11-25] MEDS: Insulin Lispro 100 UNIT/ML 3 ML VIAL 14 UNIT SUBCUT (01:02)
[2022-11-25 01:05] LABS: Partial Thromboplastin Time 24.3 SEC (26.0-36.4)
[2022-11-25 01:08] VITALS: PULSE 92
[2022-11-25 01:09] LABS: D Dimer High Sensitivity < 150 NG/ML
[2022-11-25 02:00] VITALS: BP 128/76; PULSE 84; RESP 14; TEMP 36.2; O2SAT 97
--- NOTE | 2022-11-25 02:05 | ECG_ITS ---
Test Reason : REPEAT Blood Pressure : / mmHG Vent. Rate : 081 BPM Atrial Rate : 081 BPM P-R Int : 154 ms QRS Dur : 084 ms QT Int : 380 ms P-R-T Axes : 031 001 -07 degrees QTc Int : 441 ms Normal sinus rhythm Minimal voltage criteria for LVH, may be normal variant ( R in aVL ) Borderline ECG When compared with ECG of 25-NOV-2022 00:03, Sinus rhythm has replaced Atrial fibrillation Vent. rate has decreased BY [address] no longer depressed in Anterior leads T wave inversion no longer evident in Lateral leads Referred By: Matthew Lawrence Electronically Signed By:AMINAH TOVAR MD
[2022-11-25 02:23] LABS: Glucose, Whole Blood 363 mg/dL (60-115)
[2022-11-25] MEDS: Apixaban 5 MG TABLET PO (02:47)
[2022-11-25] MEDS: Insulin Glargine,Hum.rec.anlog 100 UNIT/ML 10 ML VIAL 20 UNIT SUBCUT (02:59)
[2022-11-25] MEDS: Insulin Lispro 100 UNIT/ML 3 ML VIAL 10 UNIT SUBCUT (02:59)
--- NOTE | 2022-11-25 03:05 | PM.IMHP ---
History of Present Illness Date of Service: 11/25/22 Chief Complaint: Palpitations This is a 62-year-old male with pertinent history of hypothyroidism, seizure disorder, essential hypertension, mood disorder, gastroesophageal reflux disease who presents to the emergency department for evaluation of palpitations. Patient states he had sudden onset of palpitations while he was resting. Had associated chest discomfort. No similar history in the past. Patient denies fever, chills, shortness of breath, abdominal pain, changes in urinary or bowel habits. No history of cardiac rhythm disorder. In the emergency department, patient was noted to be in AFib with heart rate 140-160s. Review of Systems Constitutional: Constitutional: Reports no additional constitutional complaints Cardiovascular: Cardiovascular: Reports rapid heart rate Respiratory: Respiratory: Reports no additional respiratory complaints Gastrointestinal: Gastrointestinal: Reports no additional gastrointestinal complaints [facility] Medical History (Updated 11/25/22 @ 03:09 by Constance Evangelista MD) Afib Asthma COVID-19 Epilepsy Hypothyroidism Multinodular thyroid Vitamin D deficiency Family History Mother Heart problem Father Hypertension Surgical History Hx of cardiac cath Social History Alcohol intake: never Patient Tobacco Use Status: Never used Tobacco Smoked in Last 30 Days: No Use of substances other than those prescribed or required for medical reasons: No Advance Directives: No Advance Directives Information Provided: No Meds Allergies Allergy/AdvReac Type Severity Reaction Status Date / Time aspirin [ASPIRIN] Allergy Unknown ITCHING Verified 12/31/21 13:50 penicillin G Allergy Unknown Unknown Verified 12/31/21 13:50 Penicillins [PENICILLINS] Allergy Unknown SWELLING Verified 12/31/21 13:50 Active Medications: Current Medications Acetaminophen (Acetaminophen 325 Mg Tablet) 650 mg PO Q6H PRN PRN Reason: Pain, Mild (Pain Scale 1-3) Melatonin (Melatonin 3 Mg Tablet) 6 mg PO BEDTIME PRN PRN Reason: Insomnia Ondansetron HCl (Ondansetron Hcl 4 Mg/2 Ml Vial) 4 mg IVPUSH Q8H PRN PRN Reason: Nausea and Vomiting Pharmacy Consult (Consult Rx Perform Med Rec) 1 each MISCELLANE ONCE PRN PRN Reason: Consult order Sodium Chloride (0.9 % Sodium Chloride Flush 3 Ml Syringe) [facility] Home Medications Medication Instructions Recorded Confirmed Last Taken Type benztropine 0.5 mg tablet 0.5 mg PO BID 01/01/21 12/31/21 Unknown History carvedilol 3.125 mg tablet 3.125 mg PO BID 01/01/21 12/31/21 Unknown History cholecalciferol (vitamin D3) 50 50 mcg PO DAILY 01/01/21 12/31/21 Unknown History mcg (2,000 unit) capsule clonazepam 0.5 mg tablet 0.5 mg PO DAILY PRN 01/01/21 12/31/21 Unknown History gemfibrozil 600 mg tablet 600 mg PO DAILY 01/01/21 12/31/21 Unknown History levothyroxine 25 mcg tablet 25 mcg PO DAILY 01/01/21 12/31/21 Unknown History losartan 50 mg tablet 50 mg PO QPM 01/01/21 12/31/21 Unknown History omeprazole 20 mg capsule,delayed 20 mg PO BID 01/01/21 12/31/21 Unknown History release paroxetine HCl 10 mg tablet 10 mg PO DAILY 01/01/21 12/31/21 Unknown History phenytoin sodium extended 100 mg 200 mg PO BID 01/01/21 12/31/21 Unknown History capsule Physical Exam Vital Signs and Narrative: Vital Signs: Last Vital Signs Temp 97.1 F 11/25/22 02:00 Pulse 84 11/25/22 02:00 Resp 14 11/25/22 02:00 BP 128/76 11/25/22 02:00 Pulse Ox 97 11/25/22 02:00 O2 Del Method Room Air 11/25/22 02:00 BMI result Body Mass Index 30.8 Middle-aged male lying in bed in no distress Neck supple, no JVD Regular rate and rhythm, S1-S2 heard Regular breath sounds bilaterally, no wheezing or crackles appreciated Abdomen soft nontender, no guarding, no rigidity Patient is awake, alert and oriented to self, place, time and person ; no focal motor deficit Psych: Normal mood No pedal edema Results Labs 11/25/22 00:09 11/25/22 00:09 Labs: Laboratory Results - last 24 hr 11/25/22 11/25/2211/25/23 00:09 00:09 00:09 MCV 87.6 MCH 30.5 MCHC 34.8 RDW 12.1 Plt Count 199 MPV 9.5 Immature Gran % (Auto) 0.6 H Neut % (Auto) 33.3 L Lymph % (Auto) 55.[address] [place] % (Auto) 8.4 Eos % (Auto) 2.4 Baso % (Auto) 0.3 Lymph # (Auto) 4.9 [place] # (Auto) 0.8 Eos # (Auto) 0.2 Baso # (Auto) 0.0 Abs Immat Gran (auto) 0.05 H Absolute Neuts (auto) 3.0 Absolute Nucleated RBC 0.000 Nucleated RBC % (auto) 0.0 PT INR APTT D-Dimer High Sensitivty Anion Gap 16 Estim Creat Clear Calc 85.6 Estimated GFR > 60 POC Glucose Random Glucose 510 H* Calcium 9.2 Troponin I High Sens < 2.7 11/25/22 11/25/22 00:49 02:16 MCV MCH MCHC RDW Plt Count MPV Immature Gran % (Auto) Neut % (Auto) Lymph % (Auto) [place] % (Auto) Eos % (Auto) Baso % (Auto) Lymph # (Auto) [place] # (Auto) Eos # (Auto) Baso # (Auto) Abs Immat Gran (auto) Absolute Neuts (auto) Absolute Nucleated RBC Nucleated RBC % (auto) PT 10.7 INR 0.9 APTT 24.3 L D-Dimer High Sensitivty < 150 Anion Gap Estim Creat Clear Calc Estimated GFR POC Glucose 363 H* Random Glucose Calcium Troponin I High Sens Imaging Radiologist's Impressions: Impressions Chest X-Ray 11/25/22 00:16 IMPRESSION: No acute cardiopulmonary findings. Assessment and Plan (1) Afib: Status: Acute Plan This is a 62-year-old male with pertinent history of hypothyroidism, seizure disorder, essential hypertension, mood disorder, gastroesophageal reflux disease who presents to the emergency department for evaluation of palpitations. #. Atrial fibrillation, ?new onset. Broke with IV diltiazem in the ER. Will admit patient for observation with cardiac monitoring. Obtaining echocardiogram and consulting Cardiology, appreciate assistance. Chads Vasc score:2. Obtaining TSH #. Hyperglycemia in a patient with prediabetes. Was given Lantus in the ER. Initiating Accu-Cheks with sliding scale insulin. Obtain A1c #. Hypothyroidism. Continue Synthroid. TSH as above #. Seizure disorder: On Dilantin #. Essential hypertension. Continue home antihypertensives #. Mood disorder. Continue home mood stabilizers #. Gastroesophageal reflux disease: On PPI Med rec pending DVT prophylaxis: Lovenox Full code Cardiac diet Time Spent With Patient Time: Total time managing care of this patient today ____ minutes. Quality Stroke Does the patient have a stroke diagnosis?: No VTE Prior VTE?: No VTE Risk Level:: Medical - moderate - high VTE Device Contraindication: Treatment Not Indicated VTE Drug Contraindication: N/A - Med Ordered
[2022-11-25] MEDS: Enoxaparin Sodium 40 MG/0.4 ML SYRINGE SUBCUT (03:55)
[2022-11-25 04:08] LABS: Glucose, Whole Blood 267 mg/dL (60-115)
[2022-11-25 04:11] LABS: Thyroid Stimulating Hormone 4.51 uIU/mL (0.32-4.0)
[2022-11-25 05:19] LABS: MANUAL DIFF FLAG NO
[2022-11-25 05:26] LABS: Basophils Percent Auto 0.2 % (0-2); Eosinophils Absolute Auto 0.2 X10*3/uL (0.0-0.4); Eosinophils Percent Auto 2.7 % (0-4); Hematocrit 36.5 % (42.0-52.0); Hemoglobin 12.9 g/dl (14.0-18.0); Imm Gran Abs Auto 0.06 X10*3/uL (0.00-0.03); Imm Gran Pct Auto 0.7 % (0.0-0.4); Lymphocytes Absolute Auto 4.5 X10*3/uL (1.2-4.9); Lymphocytes Percent Auto 51.7 % (20-40); Mean Corpuscular HGB Conc 35.3 g/dl (31.0-36.0); Mean Corpuscular Hemoglobin 30.5 pg (27.0-33.0); Mean Corpuscular Volume 86.3 fL (80.0-98.0); Mean Platelet Volume 9.4 fL (9.4-12.4); Monocytes Absolute Auto 0.9 X10*3/uL (0.1-1.2); Monocytes Percent Auto 10.3 % (2-11); Neutrophils Percent Auto 34.4 % (45-73); Platelet Count 187 X10*3/uL (160-400); Red Blood Count 4.23 X10*6/uL (4.60-5.80); White Blood Count 8.8 X10*3/uL (4.8-10.8)
[2022-11-25 05:40] LABS: Anion Gap 12 (12-20); Blood Urea Nitrogen 14 mg/dL (9-16); Calcium 8.5 mg/dL (8.4-10.2); Carbon Dioxide 24 mmol/L (22-29); Chloride 105 mmol/L (96-108); Creatinine Clr Calc Pharmacy 118.4; Estimated Glomerular Filt Rate > 60; Glucose Random 273 mg/dL (60-115); Potassium 3.8 mmol/L (3.3-5.1); Sodium 137 mmol/L (135-145)
--- NOTE | 2022-11-25 07:00 | CA_ITS ---
Transthoracic Echocardiogram Patient (Last, First, Middle): Vinnie Kelly, Gender: Male Date of : 1960 Age: 62 Procedure Date: 11/25/2022 Procedure Type: Transthoracic [place] [facility] [place]: 187.96 cm Weight: 108.86 kg BSA: 2.35 m2 Heart Rate: 79 bpm BP: 128 / 76 mmHg Risk Management Analyst: Referring MD: Constance Evangelista MD Trade Recruiter: Eder Scanlon MD Symptoms: Afib Study Quality: Adequate ECG Rhythm: Sinus Conclusions: - 1. Normal LV systolic function with mild LVH with LVEF of 55 60% with grade 1 diastolic dysfunction 2. Normal cardiac valvular Dopplers 3. Normal RV systolic pressure Findings Procedure Information Contrast agent, definity, is being given per protocol without apparent complications. Left Ventricle Normal left ventricular size and systolic function. There is mildly increased left ventricular wall thickness. The visually estimated ejection fraction is between 55-60%. Spectral Doppler is indicative of an impaired relaxation filling pattern. E/E prime ratio is <8, consistent with normal filling pressures. Evidence suggests grade I (mild) diastolic dysfunction. Right Ventricle Normal right ventricular cavity size. Atria The left atrium is likely dilated. Interatrial shunt cannot be excluded. The right atrium was not well visualized. Aortic Valve The aortic valve structure and function is likely normal. There is no aortic valve stenosis. There is no aortic valve regurgitation. Mitral Valve Likely normal mitral valve structure and function. There is trace mitral valve regurgitation. There is no mitral valve stenosis. Pulmonic Valve The pulmonic valve was not well visualized. Tricuspid Valve Likely normal tricuspid valve structure and function. There is trace tricuspid valve regurgitation. The right ventricular systolic pressure is normal. The right ventricular systolic pressure is 19 mmHg. Normal right atrial pressure. There is no evidence of pulmonary hypertension. Great Vessels All visible segments of the aorta are normal in size. The pulmonary artery was not well visualized. Venous The inferior vena cava is normal in size and collapses greater than 50% with inspiration. Pericardium/Pleural The pericardium was not well visualized. Prior Study Comparison No significant change compared to prior study dated: 03/22/2019. Measurements 2D Linear Measurements IVSd: 1.22 0.6-0.9/0.6-1.0 cm LVIDd: 4.37 3.9-5.3/4.2-5.9 cm LVIDd Index: 1.86 2.4-3.2/2.2-3.1 cm/m2 LVIDs: 2.78 2.0-3.6 cm LVPWd: 1.24 0.7-1.1 cm LA Diam: 4.00 2.7-3.8/3.0-4.0 cm LAIDs Index: 1.70 1.5-2.3 cm/m2 LV Mass: 244.56 67-162/88-224 g LV Mass Index: 104.07 43-95/49-115 g/m2 LVOT Diam: 2.20 3.0+(-)1.3 cm Mitral Valve MV Pk E: 0.59 MV PK A: 0.81 MV Decel Time: 173.00 E/A: 0.70 E'Lateral: 11.20 E'Medial: 6.31 E/E' Med: 9.30 E/E' Lat: 5.20 PHT: 51.00 MVA PHT: 4.31 Decel [place]: 3.40 Aortic Valve AoV Pk Arsh: 1.39 AoV Mn Arsh: 0.87 AoV VTI: 0.28 AoV Pk Grad: 8.00 Aov Mn Grad: 4.00 XIN Cont.VTI: 1.98 LVOT LVOT Pk Arsh: 0.73 LVOT Mn Arsh: 0.50 LVOT VTI: 0.14 LVOT Pk Grad: 2.00 LVOT Mn Grad: 1.00 LVOT Diam: 2.20 LVOT Area: 3.80 Diastolic Function MV Pk E: 0.59 MV Pk A: 0.81 E/A: 0.70 E'Medial: 6.31 E/E' Med: 9.30 E' Laterial: 11.20 E/E' Lat: 5.20 Right Ventricle TAPSE (mm): 31.50 TVS' Arsh: 16.40 Tricuspid Valve TR Pk Arsh: 1.97 TR Pk Grad: 16.00 RA Press: 3.00 RVSP: 19.00 Great Vessels Aorta Sinus of Valsalva: 3.10 2.0-3.5 cm Ao Asc: 2.90 2.1-3.4 cm Pulmonary Valve PV Pk Arsh: 1.43 Peak PV Grad: 8.00 Updated in Other Vendor System with Status of Final Eder Capo MD electronically signed on 11/25/2022 3:30:51 PM with status of Final
[2022-11-25 07:27] LABS: Estimated Average Glucose 212 mg/dL
[2022-11-25 07:43] VITALS: BP 113/68; PULSE 69; RESP 15; O2SAT 97
[2022-11-25 07:48] LABS: Glucose, Whole Blood 211 mg/dL (60-115)
[2022-11-25] MEDS: Insulin Lispro 100 UNIT/ML 3 ML VIAL SUBCUT ×2 (07:50→11:59)
[2022-11-25] MEDS: 0.9 % Sodium Chloride Flush 3 ML SYRINGE IVFLUSH (07:52)
--- NOTE | 2022-11-25 08:32 | PHA.MEDREC ---
Pharmacy Consult ? Medication Reconciliation Pharmacy has completed the medication reconciliation. Pt is medbox patient and med rec complete using claim history.
--- NOTE | 2022-11-25 09:38 | MHC.CM.PN ---
Met with patient and medical interpreter in regards to discharge planning. Patient lives with his sister and nephew, ambulates with a cane and has a SENIOR MEDIA DIRECTOR. PCP verified as Julianne Torres at [facility]. Patient received 4 moderna vaccines. Patient denies having a HCP. Information provided. Patient not interested in completing one at this time. Obs notice explained. Patient attempted to sign. However, patient's tremors did not allow patient to do this. Patient's niece, Josette will transport patient home when medically stable. She can be reached via telephone at [phone]. Continue to monitor for d/c needs.
[2022-11-25 09:40] LABS: Free T4 (Free Thyroxine) 0.91 ng/dL (0.71-1.85)
[2022-11-25] MEDS: glipiZIDE 5 MG TABLET 2.5 MG PO (09:59)
--- NOTE | 2022-11-25 11:43 | PM.CNCAR ---
History of Present Illness History of Present Illness Date of Service: 11/25/22 Requesting physician: Glenn Torrez Consult reason: atrial fibrillation Chief complaint: Palpitations Narrative: I was consulted to see Vinnie in cardiology consultation for atrial fibrillation. He is a 62-year-old male with history obtained with help of money manager. Patient despite money manager is not a very good historian. He said few years ago while in [place] for irregular heartbeat he underwent a cardiac catheterization and was told that he had no coronary artery disease. He has history of hypertension. He is not able to tell me whether he had history of atrial fibrillation the past. However he came to the hospital this morning because he was not feeling well and subsequently took a blood pressure notice that a blood pressure is very elevated. Came to the emergency room was noted to be in atrial fibrillation rapid ventricular response. He does not give a history of palpitation although when asked more he said he did have some palpitations. He did not have any lightheadedness, syncope. No chest pain. Came to emergency room was given IV Cardizem subsequently converted to sinus rhythm. However is very surprised that he was told that he has diabetes as his sugars are very elevated. He denies any symptoms at current time. His troponins are negative. EKG shows no acute ischemic changes Review of Systems Constitutional: Constitutional: Denies body ache(s), Denies chills, Denies fever(s), Reports malaise, Denies weakness and Denies weight gain Eyes: Eyes: Reports no additional eye complaints ENT: Reports system reviewed and no additional complaints, except as documented Cardiovascular: Cardiovascular: Denies chest pain, Denies leg edema, Denies lightheadedness, Denies Loss of Consciousness, Reports palpitations and Denies dyspnea Respiratory: Respiratory: Denies dyspnea Genitourinary: Genitourinary: Reports no additional male genitourinary complaints Musculoskeletal: Musculoskeletal: Reports no additional musculoskeletal complaints Integumentary/Breasts: Skin/Breast: Reports system reviewed and no additional complaints, except as docu Neurologic: Reports system reviewed and no additional complaints, except as documented and Denies weakness Psychiatric: Psychiatric: Reports no additional psychiatric complaints Endocrine: Endocrine: Reports palpitations PMFSH Past Medical History Medical History (Updated 11/25/22 @ 11:49 by Eder Scanlon MD) Afib Asthma Atrial fibrillation with RVR COVID-19 Epilepsy Hypothyroidism Multinodular thyroid Vitamin D deficiency Family History Family History Mother Heart problem Father Hypertension Surgical History Surgical History Hx of cardiac cath Social History Social History Alcohol intake: never Patient Tobacco Use Status: Never used Tobacco Smoked in Last 30 Days: No Use of substances other than those prescribed or required for medical reasons: No Advance Directives: No Advance Directives Information Provided: No service: No Current occupational status: disabled Meds Allergies Allergy/AdvReac Type Severity Reaction Status Date / Time aspirin [ASPIRIN] Allergy Unknown ITCHING Verified 12/31/21 13:50 penicillin G Allergy Unknown Unknown Verified 12/31/21 13:50 Penicillins [PENICILLINS] Allergy Unknown SWELLING Verified 12/31/21 13:50 Active Medications: Current Medications Acetaminophen (Acetaminophen 325 Mg Tablet) 650 mg PO Q6H PRN PRN Reason: Pain, Mild (Pain Scale 1-3) Atorvastatin Calcium (Atorvastatin Calcium 40 Mg Tablet) 40 mg PO DAILY@1200 MEGAN Enoxaparin Sodium (Enoxaparin Sodium 40 Mg/0.4 Ml Syringe) 40 mg SUBCUT DAILY [facility] Last Admin: 11/25/22 03:55 Dose: 40 mg Glipizide (Glipizide 5 Mg Tablet) 2.5 mg PO BIDWM [facility] Last Admin: 11/25/22 09:59 Dose: 2.5 mg Glucose (Glucose Gel 15 Gm Gel..Gram.) 15 gm PO Q15M PRN; Protocol PRN Reason: per Hypoglycemia Standing Ord. Dextrose (D10) 250 mls @ 750 mls/hr IV Q15M PRN; Protocol PRN Reason: per Hypoglycemia Standing Ord. Insulin Human Lispro (Insulin Lispro 100 Unit/Ml 3 Ml Vial) 0 unit SUBCUT QIDACHS [facility]; Protocol Last Admin: 11/25/22 07:50 Dose: 4 unit Melatonin (Melatonin 3 Mg Tablet) 6 mg PO BEDTIME PRN PRN Reason: Insomnia Ondansetron HCl (Ondansetron Hcl 4 Mg/2 Ml Vial) 4 mg IVPUSH Q8H PRN PRN Reason: Nausea and Vomiting Paroxetine HCl (Paroxetine Hcl 10 Mg Tablet) 10 mg PO DAILY@1200 [facility] Pharmacy Consult (Consult Rx Perform Med Rec) 1 each MISCELLANE ONCE PRN PRN Reason: Consult order Phenytoin Sodium (Phenytoin Sodium Extended 100 Mg Capsule) 200 mg PO BID@1200,2100 [facility] Sodium Chloride (0.9 % Sodium Chloride Flush 3 Ml Syringe) 3 ml IVFLUSH QSHIFT [facility] Last Admin: 11/25/22 07:52 Dose: 3 ml Home Medications Medication Instructions Recorded Confirmed Last Taken Type carvedilol 3.125 mg tablet 3.125 mg PO BID@1200,209901/01/21 11/25/22 Unknown History cholecalciferol (vitamin D3) 50 50 mcg PO DAILY@119901/01/21 11/25/22 Unknown History mcg (2,000 unit) capsule levothyroxine 25 mcg tablet 25 mcg PO DAILY@0600 01/01/21 11/25/22 Unknown History losartan 50 mg tablet 50 mg PO BEDTIME 01/01/21 11/25/22 Unknown History omeprazole 20 mg capsule,delayed 20 mg PO BID@0630,1630 01/01/21 11/25/22 Unknown History release paroxetine HCl 10 mg tablet 10 mg PO DAILY@119901/01/21 11/25/22 Unknown History phenytoin sodium extended 100 mg 200 mg PO BID@1200,209901/01/21 11/25/22 Unknown History capsule atorvastatin 40 mg tablet 40 mg PO DAILY@119911/25/22 11/25/22 Unknown History Physical Exam Vital Signs: Vital Signs: Last Vital Signs Temp 97.1 F 11/25/22 02:00 Pulse 69 11/25/22 07:43 Resp 15 11/25/22 07:43 BP 113/68 11/25/22 07:43 Pulse Ox 97 11/25/22 07:43 O2 Del Method Room Air 11/25/22 07:43 BMI result Body Mass Index 30.8 Const: General: cooperative, comfortable, no acute distress, alert and awake Nutritional Appearance: obese Orientation/consciousness: patient oriented x3 Limitations: no limitations HEENT: Head: Yes normocephalic and Yes atraumatic Neck: Neck: Yes trachea midline, Yes supple and Yes no JVD Resp: Effort & Inspection: normal respiratory effort Auscultation: clear to auscultation bilaterally Cardio: Jugular venous distension: no JVD Palpation: normal PMI Rate: regular rate Rhythm: regular rhythm Heart sounds: S1 normal heart sound present, S2 normal heart sound present, no click, no gallops and no murmurs Skin: General skin exam: no rashes or lesions noted Neuro: General: patient oriented x3 and no focal motor deficits Extrem: General: Yes no clubbing, cyanosis or edema Objective Labs and Meds 11/25/22 05:14 11/25/22 05:14 Lab results: Laboratory Results - last 24 hr 11/25/22 11/25/22 11/25/22 00:09 00:09 00:09 WBC 8.9 RBC 4.69 Hgb 14.3 Hct 41.1 L MCV 87.6 MCH 30.5 MCHC 34.8 RDW 12.1 Plt Count 199 MPV 9.5 Immature Gran % (Auto) 0.6 H Neut % (Auto) 33.3 L Lymph % (Auto) 55.0 H [place] % (Auto) 8.4 Eos % (Auto) 2.4 Baso % (Auto) 0.3 Lymph # (Auto) 4.9 [place] # (Auto) 0.8 Eos # (Auto) 0.2 Baso # (Auto) 0.0 Abs Immat Gran (auto) 0.05 H Absolute Neuts (auto) 3.0 Absolute Nucleated RBC 0.000 Nucleated RBC % (auto) 0.0 PT INR APTT D-Dimer High Sensitivty Sodium 133 L Potassium 4.1 Chloride 102 Carbon Dioxide 19 L Anion Gap 16 BUN 16 Creatinine 1.19 Estim Creat Clear Calc 85.6 Estimated GFR > 60 POC Glucose Random Glucose 510 H* Estimat Average Glucose Hemoglobin A1c % Calcium 9.2 Troponin I High Sens < 2.7 TSH Free T4 11/25/22 11/25/22 11/25/22 00:49 02:16 03:25 WBC RBC Hgb Hct MCV MCH MCHC RDW Plt Count MPV Immature Gran % (Auto) Neut % (Auto) Lymph % (Auto) [place] % (Auto) Eos % (Auto) Baso % (Auto) Lymph # (Auto) [place] # (Auto) Eos # (Auto) Baso # (Auto) Abs Immat Gran (auto) Absolute Neuts (auto) Absolute Nucleated RBC Nucleated RBC % (auto) PT 10.7 INR 0.9 APTT 24.3 L D-Dimer High Sensitivty < 150 Sodium Potassium Chloride Carbon Dioxide Anion Gap BUN Creatinine Estim Creat Clear Calc Estimated GFR POC Glucose 363 H* Random Glucose Estimat Average Glucose Hemoglobin A1c % Calcium Troponin I High Sens TSH 4.51 H Free T4 11/25/22 11/25/22 11/25/22 03:25 04:04 05:14 WBC 8.8 RBC 4.23 L Hgb 12.9 L Hct 36.5 L MCV 86.3 MCH 30.5 MCHC 35.3 RDW 12.0 Plt Count 187 MPV 9.4 Immature Gran % (Auto) 0.7 H Neut % (Auto) 34.4 L Lymph % (Auto) 51.7 H [place] % (Auto) 10.3 Eos % (Auto) 2.7 Baso % (Auto) 0.2 Lymph # (Auto) 4.5 [place] # (Auto) 0.9 Eos # (Auto) 0.2 Baso # (Auto) 0.0 Abs Immat Gran (auto) 0.06 H Absolute Neuts (auto) 3.0 Absolute Nucleated RBC 0.000 Nucleated RBC % (auto) 0.0 PT INR APTT D-Dimer High Sensitivty Sodium Potassium Chloride Carbon Dioxide Anion Gap BUN Creatinine Estim Creat Clear Calc Estimated GFR POC Glucose 267 H Random Glucose Estimat Average Glucose 212 Hemoglobin A1c % 9.0 Calcium Troponin I High Sens TSH Free T4 11/25/22 11/25/22 05:14 07:41 WBC RBC Hgb Hct MCV MCH MCHC RDW Plt Count MPV Immature Gran % (Auto) Neut % (Auto) Lymph % (Auto) [place] % (Auto) Eos % (Auto) Baso % (Auto) Lymph # (Auto) [place] # (Auto) Eos # (Auto) Baso # (Auto) Abs Immat Gran (auto) Absolute Neuts (auto) Absolute Nucleated RBC Nucleated RBC % (auto) PT INR APTT D-Dimer High Sensitivty Sodium 137 Potassium 3.8 Chloride 105 Carbon Dioxide 24 Anion Gap 12 BUN 14 Creatinine 0.86 Estim Creat Clear Calc 118.4 Estimated GFR > 60 POC Glucose 211 H Random Glucose 273 H Estimat Average Glucose Hemoglobin A1c % Calcium 8.5 D Troponin I High Sens TSH Free T4 0.91 EKG 1. Shows atrial fibrillation with rapid ventricular response with nonspecific ST T wave changes EKG 2. Shows normal sinus rhythm with borderline criteria for LVH Imaging Radiologist's impression: Impressions Chest X-Ray 11/25/22 00:16 IMPRESSION: No acute cardiopulmonary findings. Assessment and Plan (1) Paroxysmal atrial fibrillation: Status: Acute Paroxysmal atrial fibrillation easily converted to sinus rhythm with rate control. Patient as underlying multiple risk factors including hypertension, obesity and diabetes. Should be on full oral anticoagulation with Xarelto 20 mg daily. From cardiac perspective can be discharged home however given that he was hospitalized with atrial fibrillation will benefit from rhythm control approach. Continue carvedilol therapy in at flecainide 50 mg b.i.d. given that he had normal coronary arteries by cardiac catheterization few years ago. Will require stress test outpatient. He follow-up with his own [employer]. Continue aggressive blood pressure control. New diagnosis of diabetes, is very surprised about the same. Would continue aggressive lifestyle modification and consider medical therapy. Will sign of the case. Thank you for allowing me to partake in his care Time Spent With Patient Time: Total time managing care of this patient today ____ minutes. Procedures Date of Service Date of Service: 11/25/22
[2022-11-25 11:46] LABS: Glucose, Whole Blood 204 mg/dL (60-115)
[2022-11-25] MEDS: Atorvastatin Calcium 40 MG TABLET PO (11:59)
[2022-11-25] MEDS: PARoxetine HCL 10 MG TABLET PO (11:59)
[2022-11-25] MEDS: Phenytoin Sodium Extended 100 MG CAPSULE 200 MG PO (12:00)
--- NOTE | 2022-11-25 14:07 | MHC.CM.PN ---
Received notification from Dr Torrez that patient will go home with new VNA referral. Patient agreeable to [facility] [place] [facility]. Referral made via [facility]. Patient will be on Xarelto. Xarelto savings card provided and explained. T/W spoke with Josette via telephone at [phone]. Her nephew will transport patient home. Patient aware and agreeable. Continue to monitor for d/c needs.
--- NOTE | 2022-11-25 15:54 | P.DS_ITS ---
DS: Providers Provider Date of Service: 11/25/22 Date of admission: 11/25/22 02:59 Date of discharge: 11/25/22 Primary care physician: Unknown Physician Consults: 11/25/22 02:59 Consult to Cardiology Routine Consulting Provider: [facility] Reason for consultation: Afib Attending physician on discharge: Glenn Torrez Discharging clinician: Glenn Torrez DS: Diagnosis Discharge Diagnosis (1) Paroxysmal atrial fibrillation: Status: Acute (2) Diabetes mellitus with hyperglycemia: Status: Acute (3) Afib: Status: Acute DS: Summary Hospital Course Hospital Course: 62-year-old male with pertinent history of hypothyroidism, seizure disorder, essential hypertension, mood disorder, gastroesophageal reflux disease who presents to the emergency department for evaluation of palpitations.? Patient states he had sudden onset of palpitations while he was resting.? Had associated chest discomfort.? No similar history in the past.? Patient denies fever, chills, shortness of breath, abdominal pain, changes in urinary or bowel habits.? No history of cardiac rhythm disorder. In the emergency department, patient was noted to be in AFib with heart rate 140-160s. hospital course: Patient was admitted because of new onset afib and dm type 2 : Patient was given IV Cardizem drip and subsequently converted into sinus rhythm: Subsequently seen by Cardiology and switched to flecainide for heart rate control and Xarelto for stroke prevention, in addition found to have new onset diabetes with hyperglycemia: Hemoglobin A1c is 9: Currently started on glipizide and metformin. Strongly advised to check fingersticks at home, diabetes education was given. obesity: Encouraged to lose weight. Discussed the case management in detail due to above issues including AFib and new onset diabetes patient may benefit from home vna. Patient is to follow-up with PCP, cardiology may arrange their own appointment. plan: Added flecainide for AFib , Xarelto for stroke prevention. Added metformin/glipizide for diabetes, diabetic supplies were given, diabetic education was given. Patient was strongly advised to follow-up with PCP and Cardiology outpatient. Assessment and plan coordination time spent 50 minute. Time Spent with Patient Time attestation: Total time managing care of this patient today ____ minutes. Discharge coordination time: Greater than 30 minutes Quality: Safe Use of Opioids Does Pt have an Active Cancer Diagnosis on the Problem List?: No Quality: Stroke Does the patient have a stroke diagnosis?: No Physical Exam Vital Signs: Vital Signs: Last Vital Signs Temp 97.1 F 11/25/22 02:00 Pulse 69 11/25/22 07:43 Resp 15 11/25/22 07:43 BP 113/68 11/25/22 07:43 Pulse Ox 97 11/25/22 07:43 O2 Del Method Room Air 11/25/22 07:43 BMI result Body Mass Index 30.8 Appearance: Alert.? Oriented X3.? not in distress. cvs: rrr, [id number] . res: clear to auscultation ,no rhonchii or wheezing abd: no rebound or guarding ,nt, bs present. ext pulses present , no cyanosis . neuro: axo3 , nonfocal. DS: Data Data Completed and Pending Labs on day of discharge: Laboratory Results - last 24 hr 11/25/22 11/25/22 11/25/22 00:09 00:09 00:09 WBC 8.9 RBC 4.69 Hgb 14.3 Hct 41.1 L MCV 87.6 MCH 30.5 MCHC 34.8 RDW 12.1 Plt Count 199 MPV 9.5 Immature Gran % (Auto) 0.6 H Neut % (Auto) 33.3 L Lymph % (Auto) 55.0 H [place] % (Auto) 8.4 Eos % (Auto) 2.4 Baso % (Auto) 0.3 Lymph # (Auto) 4.9 [place] # (Auto) 0.8 Eos # (Auto) 0.2 Baso # (Auto) 0.0 Abs Immat Gran (auto) 0.05 H Absolute Neuts (auto) 3.0 Absolute Nucleated RBC 0.000 Nucleated RBC % (auto) 0.0 PT INR APTT D-Dimer High Sensitivty Sodium 133 L Potassium 4.1 Chloride 102 Carbon Dioxide 19 L Anion Gap 16 BUN 16 Creatinine 1.19 Estim Creat Clear Calc 85.6 Estimated GFR > 60 POC Glucose Random Glucose 510 H* Estimat Average Glucose Hemoglobin A1c % Calcium 9.2 Troponin I High Sens < 2.7 TSH Free T4 11/25/22 11/25/22 11/25/22 00:49 02:16 03:25 WBC RBC Hgb Hct MCV MCH MCHC RDW Plt Count MPV Immature Gran % (Auto) Neut % (Auto) Lymph % (Auto) [place] % (Auto) Eos % (Auto) Baso % (Auto) Lymph # (Auto) [place] # (Auto) Eos # (Auto) Baso # (Auto) Abs Immat Gran (auto) Absolute Neuts (auto) Absolute Nucleated RBC Nucleated RBC % (auto) PT 10.7 INR 0.9 APTT 24.3 L D-Dimer High Sensitivty < 150 Sodium Potassium Chloride Carbon Dioxide Anion Gap BUN Creatinine Estim Creat Clear Calc Estimated GFR POC Glucose 363 H* Random Glucose Estimat Average Glucose Hemoglobin A1c % Calcium Troponin I High Sens TSH 4.51 H Free T4 11/25/22 11/25/22 11/25/22 03:25 04:04 05:14 WBC 8.8 RBC 4.23 L Hgb 12.9 L Hct 36.5 L MCV 86.3 MCH 30.5 MCHC 35.3 RDW 12.0 Plt Count 187 MPV 9.4 Immature Gran % (Auto) 0.7 H Neut % (Auto) 34.4 L Lymph % (Auto) 51.7 H [place] % (Auto) 10.3 Eos % (Auto) 2.7 Baso % (Auto) 0.2 Lymph # (Auto) 4.5 [place] # (Auto) 0.9 Eos # (Auto) 0.2 Baso # (Auto) 0.0 Abs Immat Gran (auto) 0.06 H Absolute Neuts (auto) 3.0 Absolute Nucleated RBC 0.000 Nucleated RBC % (auto) 0.0 PT INR APTT D-Dimer High Sensitivty Sodium Potassium Chloride Carbon Dioxide Anion Gap BUN Creatinine Estim Creat Clear Calc Estimated GFR POC Glucose 267 H Random Glucose Estimat Average Glucose 212 Hemoglobin A1c % 9.0 Calcium Troponin I High Sens TSH Free T4 11/25/22 11/25/22 11/25/22 05:14 07:41 11:43 WBC RBC Hgb Hct MCV MCH MCHC RDW Plt Count MPV Immature Gran % (Auto) Neut % (Auto) Lymph % (Auto) [place] % (Auto) Eos % (Auto) Baso % (Auto) Lymph # (Auto) [place] # (Auto) Eos # (Auto) Baso # (Auto) Abs Immat Gran (auto) Absolute Neuts (auto) Absolute Nucleated RBC Nucleated RBC % (auto) PT INR APTT D-Dimer High Sensitivty Sodium 137 Potassium 3.8 Chloride 105 Carbon Dioxide 24 Anion Gap 12 BUN 14 Creatinine 0.86 Estim Creat Clear Calc 118.4 Estimated GFR > 60 POC Glucose 211 H 204 H Random Glucose 273 H Estimat Average Glucose Hemoglobin A1c % Calcium 8.5 D Troponin I High Sens TSH Free T4 0.91 Imaging Chest x-ray: Radiologist's impression: ITS Impressions Chest X-Ray 11/25/22 00:16 IMPRESSION: No acute cardiopulmonary findings. Discharge Plan Discharge Anticipated Discharge Date/Time: 11/25/22 12:35 Patient Disposition: Home Health Service Discharge Diagnosis: Atrial fibrillation, DMtype 2. Referrals: Prate[facility] PHILIP [Outside] - 1 Week Physician,Unknown J [Primary Care Provider] - 1 Week Discharge Medications: New metformin 500 mg Tablet 500 mg PO BIDWM Qty: 60 0RF glipizide 5 mg Tablet 5 mg PO BIDWM Qty: 60 0RF flecainide 50 mg tablet 50 mg PO Q12H Qty: 60 0RF Xarelto 20 mg tablet 20 mg PO DAILY Qty: 30 0RF Rx Instructions: must administer with evening meal (DME) FreeStyle Lite Strips Strip Qty: 100 0RF Rx Instructions: Test four times a day or as directed. (DME) blood-glucose meter [FreeStyle Lite Meter] Kit Qty: 1 0RF Rx Instructions: As Directed alcohol swabs Pads, Medicated 1 pad TOPICAL QIDACHS Qty: 100 0RF Rx Instructions: Use four times a day or as directed. (DME) lancets [FreeStyle Lancets] 28 gauge misc Qty: 100 0RF Rx Instructions: Test four times a day or as directed. Continued atorvastatin 40 mg tablet 40 mg PO DAILY@1200 carvedilol 3.125 mg tablet 3.125 mg PO BID@1200,2100 losartan 50 mg tablet 50 mg PO BEDTIME levothyroxine 25 mcg tablet 25 mcg PO DAILY@0600 cholecalciferol (vitamin D3) 50 mcg (2,000 unit) capsule 50 mcg PO DAILY@1200 omeprazole 20 mg capsule,delayed release(DR/EC) 20 mg PO BID@0630,1630 phenytoin sodium extended 100 mg capsule 200 mg PO BID@1200,2100 paroxetine HCl 10 mg tablet 10 mg PO DAILY@1200 Discharge Orders: Discharge Order (Routine); Ordered 11/25/22 Ordered By: Glenn Torrez Diet: Advance to usual diet Activity on Discharge: As tolerated Stand Alone Forms: Patient Portal Discharge page Care Plan Goals: Patient was admitted because of new onset afib and dm type 2 : Patient was given IV Cardizem drip and subsequently converted into sinus rhythm: Subsequently seen by Cardiology and switched to flecainide for heart rate control and Xarelto for stroke prevention, in addition found to have new onset diabetes with hyperglycemia: Hemoglobin A1c is 9: Currently started on glipizide and metformin. Strongly advised to check fingersticks at home, diabetes education was given. Discussed the case management in detail due to above issues including AFib and new onset diabetes patient may benefit from home vna. Patient is to follow-up with PCP, cardiology may arrange their own appointment. Health Concerns: As above. Plan of Treatment: As above. Assessment: As above. Patient Instructions: A-fib (Atrial Fibrillation) (DC) Discharge Date/Time: 11/25/22 14:19
--- NOTE | 2022-11-26 11:24 | MHC.CM.PN ---
Patient was d/c'd 11/25. [facility] at this [facility]. Patient's provider at [facility] left the practice. Patient hasn't established care with a new PCP. health center assistant has been asked to arrange PCP appointment with [facility] so VNA can be arranged by them.
[2022-11-27 15:29] LABS: Triiodothyronine T3 Total 143 ng/dL (76-181)
== END 2022-11-25 14:19 | disposition home health service (06) ==
LOC: HO.ED 11-25 01:24 → HO.EDOVER 11-25 03:08
PROVIDERS: Admitting Provider Student in an Organized Health Care Education/Training Program; Emergency Provider Internal Medicine; PCP Nurse Practitioner Family; Visit Provider Internal Medicine
DX: I48.0 Paroxysmal atrial fibrillation (principal); R07.9 Chest pain, unspecified; E03.9 Hypothyroidism, unspecified; J45.909 Unspecified asthma, uncomplicated; E55.9 Vitamin D deficiency, unspecified; E11.65 Type 2 diabetes mellitus with hyperglycemia; I10 Essential (primary) hypertension; G40.909 Epilepsy, unspecified, not intractable, without status epilepticus; R00.2 Palpitations; K21.9 Gastro-esophageal reflux disease without esophagitis
CPT/HCPCS: 36415; 71046; 80048; 82947; 83036; 84439; 84443; 84480; 84484; 85025; 85379; 85610; 85730; 93005; 93306; 96361; 96372; 96374; 99222; 99285; J1650; Q9957

== ENCOUNTER 2023-01-20 16:04 | Outpatient (AMB) | payer OTHER, SELFPAY ==
[2023-01-20 16:07] VITALS: BP 128/78; PULSE 77; BMI 30.5
--- NOTE | 2023-01-20 16:07 | A.OFFVIS_ITS ---
Intake Vital Signs 01/20/23 16:07 Height 6 ft 2 in Weight 237 lb 7.005 oz BMI 30.5 BP 128/78 Blood Pressure Location Rt brachial Position Sitting Pulse 77 Pulse Source Pulse Oximeter Intake Visit Reasons: FU NTMNG Intake Note: New patient to Dr. Mandujano present today for NTMNG, previously followed by Dr. Lomeli. Title Insurance Examiner Required: Yes Title Insurance Examiner Language: Program Assistant Name: Lilian, Medical Staff Information Interpreted: non-clinical & clinical Accompanied by: Niece Allergies aspirin [ASPIRIN] Allergy (Unknown, Verified 01/20/23 16:16) ITCHING penicillin G Allergy (Unknown, Verified 01/20/23 16:16) Unknown Penicillins [PENICILLINS] Allergy (Unknown, Verified 01/20/23 16:16) SWELLING HPI HPI Comments History of Present Illness Details 62 YO M with PMHx seizure disorder who is seen in F/U for NTMNG and Hypothyroidism. The patient last saw Dr. Lomeli on 12/31/2021 Currently denies any compressive symptoms. Denies any symptoms of hyper or hypothyroidism. He takes Levothyroxine 25 mcg PO daily. Takes this in the morning with just water. Waits 1 hour to eat. Takes all of his other medications later in the day. Denies any history of head or neck irradiation. Denies any family history of thyroid cancer. Had thyroid US which revealed 2 subcentimeter nodules. Has never had a biopsy of these nodules. Thyroid US 11/27/2020: Right Thyroid Lobe: 4.4 x 1.5 x 1.1 cm, volume 3.8 mL. Previously 4.5 x 1.6 x 1.1 cm, volume 4.1 mL. Parenchyma: The gland echotexture is homogeneous. Thyroid vascularity is normal. Left Thyroid Lobe: 4.8 x 1.3 x 1.5 cm, volume 4.9 mL. Previously 4.7 x 1.6 x 1.6 cm, volume 6.3 mL. Parenchyma: The gland echotexture is homogeneous. Thyroid vascularity is normal. Isthmus: 0.3 cm in maximum AP dimension. Previously 0.3 cm. Estimated total number of nodules greater than or equal to 1 cm: 0. Head Piece Assembler nodules are described as follows: 1. Location: Right anterior mid. Size: 0.3 x 0.2 x 0.2 cm, volume 0.01 mL. Previously: 0.3 x 0.2 x 0.3 cm, volume 0.01 mL. Nodule characteristics: Composition: Cannot be determined (2). Echogenicity: Hypoechoic (2). Shape: Not taller than wide (0). Margins: Smooth (0). Echogenic Foci: None (0). ACR TI-RADS total points: 4 ACR TI-RADS category: 4 Comparison: No significant change. 2. Location: Left inferior. Size: 0.9 x 0.6 x 0.6 cm, volume 0.17 mL. Previously: 0.6 x 0.5 x 0.4 cm, volume 0.06 mL. Nodule characteristics: Composition: Cystic(0). ACR TI-RADS total points: 0 ACR TI-RADS category: 1 Comparison: No significant change. NODES: No lymphadenopathy is seen in the tissue surrounding the thyroid gland. Labs: Laboratory Tests 12/26/21 09:35 25-OH Vitamin D To db 39.7 TSH 2.11 Free T4 0.79 Currently on 25 mcg levothyroxine [facility] Medical History (Updated 11/25/22 @ 11:49 by Eder Scalnon MD) Afib Asthma Atrial fibrillation with RVR COVID-19 Epilepsy Hypothyroidism Multinodular thyroid Vitamin D deficiency Surgical History Hx of cardiac cath Family History Mother Heart problem Father Hypertension Social History Alcohol intake: never Patient Tobacco Use Status: Never used Tobacco service: No Current occupational status: disabled Physical Exam Vital Signs: Last Vital Signs Pulse 77 01/20/23 16:07 BP 128/78 01/20/23 16:07 BMI result Body Mass Index 30.5 Const Other: Thyroid gland is normal size weighs about 15 g. There are no thyroid nodules palpated. Assessment & Plan Assessment & Plan (1) Hypothyroidism: Code(s): E03.9 - Hypothyroidism, unspecified Qualifiers: Hypothyroidism type: unspecified Qualified Code(s): E03.9 - Hypothyroidism, unspecified Plan: This 62-year-old male with a history of hypothyroidism currently on 25 mcg levothyroxine. He had a slightly elevated TSH 11/25/2022 but appears to be clinically euthyroid. Plan is to increase levothyroxine to 50 mcg q.d. and recheck TSH and free T4 in 6 weeks time. (2) Multinodular thyroid: Code(s): E04.2 - Nontoxic multinodular goiter Plan: Multinodular goiter with subcentimeter nodules with ultrasound 12/31/2021 showing no change in the size of the nodules. Will continue to follow with repeat thyroid ultrasound next year Orders: Orders Free T4 (Free Thyroxine) 6 Weeks E03.9 - Hypothyroidism, unspecified, E04.2 - Nontoxic multinodular goiter Thyroid Stimulating Hormone 6 Weeks E03.9 - Hypothyroidism, unspecified, E04.2 - Nontoxic multinodular goiter Medications: New levothyroxine 50 mcg PO DAILY 30 tabs 4RF Coding Level of Care Code Est Pt Level 3 (76993) Diagnoses Hypothyroidism E03.9 Hypothyroidism type: unspecified Multinodular thyroid E04.2
== END 2023-01-20 16:29 | disposition home or self-care (01) ==
PROVIDERS: PCP Nurse Practitioner Family; Visit Provider Internal Medicine Endocrinology, Diabetes & Metabolism
DX: E03.9 Hypothyroidism, unspecified (principal); E04.2 Nontoxic multinodular goiter
CPT/HCPCS: 99213

== ENCOUNTER → 2023-01-20 16:04 | Outpatient (BNVA) | payer OTHER, SELFPAY | PROVIDERS: PCP Nurse Practitioner Family; Visit Provider Internal Medicine Endocrinology, Diabetes & Metabolism | DX: E03.9 Hypothyroidism, unspecified (principal); E04.2 Nontoxic multinodular goiter | CPT/HCPCS: 99212 ==

== ENCOUNTER 2023-07-06 08:46 | Outpatient (REF) | payer OTHER, MEDICAID, SELFPAY ==
[2023-07-06 12:06] LABS: Estimated Average Glucose 111 mg/dL; Hemoglobin A1c % 5.5 % (<6.0)
[2023-07-06 12:15] LABS: Creatinine Urine 60.25 mg/dL; Microalbum/Creatinine Ratio Ur 235.6 ug/mg cr (<30)
[2023-07-06 12:40] LABS: Folate 8.3 ng/mL (> or = 4.0); Vitamin B12 502 pg/mL (200-900)
[2023-07-06 12:45] LABS: Alanine Aminotransferase 25 U/L (0-40); Albumin Level 4.2 g/dL (3.5-5.0); Alkaline Phosphatase 84 U/L (39-117); Anion Gap 15 (12-20); Aspartate Amino Transferase 20 U/L (5-37); Bilirubin Total 0.2 mg/dL (0.0-1.0); Blood Urea Nitrogen 15 mg/dL (9-16); Calcium 9.8 mg/dL (8.4-10.2); Carbon Dioxide 26 mmol/L (22-29); Chloride 105 mmol/L (96-108); Cholesterol 166 mg/dL (<200); Estimated Glomerular Filt Rate > 60; Glucose Random 102 mg/dL (60-115); HDL Cholesterol 52 mg/dL (>40); LDL Cholesterol Calculated 78 mg/dL (<100); Potassium 4.5 mmol/L (3.3-5.1); Sodium 141 mmol/L (135-145); Total Protein 7.8 g/dL (6.5-8.0); Triglycerides 183 mg/dL (<150)
[2023-07-06 12:48] LABS: Vitamin D 25-OH Total 44.1 ng/mL (>30)
== END 2023-07-06 08:47 | disposition home or self-care (01) ==
LOC: HO.HHCL 08:46
PROVIDERS: Visit Provider Student in an Organized Health Care Education/Training Program
DX: E11.9 Type 2 diabetes mellitus without complications (principal)
CPT/HCPCS: 36415; 80053; 80061; 82043; 82306; 82570; 82607; 82746; 83036

== ENCOUNTER 2023-07-19 11:29 | Outpatient (REF) | payer OTHER, MEDICAID, SELFPAY ==
--- NOTE | ~2023-07-19 | XR_ITS ---
STUDY: Right shoulder and bilateral knees INDICATION: Right shoulder and worsening bilateral knee pain COMPARISON: None TECHNIQUE: 5 view right shoulder, 3 view right knee, 2 view left knee FINDINGS: Right shoulder: Acromioclavicular joint space narrowing. Lateral humeral joint is maintained. No fracture or dislocation. Right knee: Tricompartment spurring. Moderate medial knee joint narrowing. No fracture or dislocation. No joint effusion. Varicosities. Left knee: Tricompartment spurring. Moderate medial knee joint narrowing. No fracture, dislocation or joint effusion. XR/XR shoulder RT min 2V IMPRESSION: No acute bony pathology right shoulder and bilateral knees. Mild degenerative change right shoulder. Moderate bilateral knee osteoarthritis.
--- NOTE | ~2023-07-19 | XR_ITS ---
STUDY: Right shoulder and bilateral knees INDICATION: Right shoulder and worsening bilateral knee pain COMPARISON: None TECHNIQUE: 5 view right shoulder, 3 view right knee, 2 view left knee FINDINGS: Right shoulder: Acromioclavicular joint space narrowing. Lateral humeral joint is maintained. No fracture or dislocation. Right knee: Tricompartment spurring. Moderate medial knee joint narrowing. No fracture or dislocation. No joint effusion. Varicosities. Left knee: Tricompartment spurring. Moderate medial knee joint narrowing. No fracture, dislocation or joint effusion. XR/XR knee LT 2V IMPRESSION: No acute bony pathology right shoulder and bilateral knees. Mild degenerative change right shoulder. Moderate bilateral knee osteoarthritis.
--- NOTE | ~2023-07-19 | XR_ITS ---
STUDY: Right shoulder and bilateral knees INDICATION: Right shoulder and worsening bilateral knee pain COMPARISON: None TECHNIQUE: 5 view right shoulder, 3 view right knee, 2 view left knee FINDINGS: Right shoulder: Acromioclavicular joint space narrowing. Lateral humeral joint is maintained. No fracture or dislocation. Right knee: Tricompartment spurring. Moderate medial knee joint narrowing. No fracture or dislocation. No joint effusion. Varicosities. Left knee: Tricompartment spurring. Moderate medial knee joint narrowing. No fracture, dislocation or joint effusion. XR/XR knee RT 2V IMPRESSION: No acute bony pathology right shoulder and bilateral knees. Mild degenerative change right shoulder. Moderate bilateral knee osteoarthritis.
== END 2023-07-19 11:30 | disposition home or self-care (01) ==
LOC: HO.HHCX 11:29
PROVIDERS: Visit Provider Student in an Organized Health Care Education/Training Program
DX: M25.511 Pain in right shoulder (principal); M25.561 Pain in right knee; M25.562 Pain in left knee; G89.29 Other chronic pain
CPT/HCPCS: 73030; 73560

== ENCOUNTER 2023-10-12 17:00 | Outpatient (RCR) | payer OTHER, SELFPAY ==
[2023-09-21 17:00] VITALS: BP 138/62; PULSE 92; O2SAT 96
== END 2023-12-14 10:40 | disposition home or self-care (01) ==
LOC: HO.PT 17:00
PROVIDERS: PCP Student in an Organized Health Care Education/Training Program; Visit Provider Student in an Organized Health Care Education/Training Program
DX: M25.511 Pain in right shoulder (principal)
CPT/HCPCS: 97110; 97162

== ENCOUNTER 2023-11-02 14:34 | Outpatient (AMB) | payer OTHER, SELFPAY ==
[2023-11-02 14:43] VITALS: BMI 30.4
--- NOTE | 2023-11-02 14:43 | A.OFFVIS_ITS ---
Vital Signs 11/02/23 14:43 Height 6 ft 2 in Weight 237 lb BMI 30.4 Intake Visit Reasons: N/P right shoulder pain Intake Note: Vinnie is a 62 year old Right hand dominant male who presents as a new patient with Right shoulder pain and weakness. The patient states that he did injure his right shoulder approximately 10 years ago. Symptoms have gotten worse over the last 10 years in spite of continued non operative treatments. Has also failed the last 6 weeks of conservative treatments. The patient states that his pain is 9/10. Most of the pain is along the lateral aspect of his right shoulder. The patient has difficulty lifting his right hand above shoulder height. He has done physical therapy which aggravated his pain. He has also tried Tylenol and anti-inflammatory medicines which gave him minimal relief. The patient has had injections in the past which gave him no relief. Oracle Bpm Developer Name: [id number] Allergies aspirin [ASPIRIN] Allergy (Unknown, Verified 11/02/23 14:56) ITCHING penicillin G Allergy (Unknown, Verified 11/02/23 14:56) Unknown Penicillins [PENICILLINS] Allergy (Unknown, Verified 11/02/23 14:56) SWELLING Medication List - Last Reconciled 11/02/23 by Sid Granados MD albuterol sulfate 90 mcg/actuation (Ventolin HFA) 2 puffs inhalation Q4H PRN alcohol swabs 1 pad topical QIDACHS atorvastatin 40 mg PO DAILY@1200 blood sugar diagnostic (FreeStyle Lite Strips) Test four times a day or as directed. blood-glucose meter (FreeStyle Lite Meter kit) As Directed carvedilol 3.125 mg PO BID@1200,2100 cholecalciferol (vitamin D3) 50 mcg PO DAILY@1200 flecainide 50 mg PO Q12H glipizide 5 mg PO BIDWM lancets (FreeStyle Lancets) Test four times a day or as directed. levothyroxine 50 mcg PO QAM losartan 50 mg PO BEDTIME metformin 500 mg PO BIDWM omeprazole 20 mg PO BID@0630,1630 paroxetine HCl 10 mg PO DAILY@1200 phenytoin sodium extended 200 mg PO BID@1200,2100 rivaroxaban (Xarelto) 20 mg PO DAILY PFSH Medical History (Updated 11/02/23 @ 15:20 by Sid Granados MD) Atrial fibrillation with RVR Afib COVID-19 Asthma Epilepsy Vitamin D deficiency Hypothyroidism Multinodular thyroid Surgical History Hx of cardiac cath Family History Mother Heart problem Father Hypertension Social History (Updated 11/02/23 @ 14:59 by Brisa Roth CMA) Alcohol intake: never Patient Tobacco Use Status: Never used Tobacco service: No Current occupational status: disabled Current occupation: Right hand dominant Physical Exam Vital Signs: BMI result Body Mass Index 30.4 Const Other: Well-nourished well-developed very friendly male awake alert and oriented x3 in no acute distress Extrem Other: Bilateral upper extremity examination shows good capillary refill, no skin lesions noted, normal sensation light touch Right shoulder examination shows decreased range of motion when compared to his left shoulder, 4+ out of 5 strength with supraspinatus testing, positive impingement signs, tenderness over his acromioclavicular joint, no instability Results Reviewed Results Reviewed: X-rays of the patient's right shoulder show severe acromioclavicular joint narrowing, a type 2 acromion, no acute bony abnormalities Assessment & Plan Assessment & Plan (1) Right shoulder pain: Code(s): M25.511 - Pain in right shoulder Category: Medical Plan Mr. Wilian Salcido presents with progressively worsening right shoulder pain and weakness possibly due to a full-thickness rotator cuff tear. Thus, I will send the patient for an MRI of his right shoulder for further evaluation. I will see him back once the MRI is completed to discuss the findings and treatment options. Feel free to call me at any time should questions regarding his orthopedic management arise. Thank you very much for asking me to see this very friendly patient. I spent 21 minutes in reviewing the patient's records and imaging studies, seeing the patient and documenting in the medical record. Orders: Orders MR shoulder RT wo con Today M25.511 - Pain in right shoulder Coding Level of Care Code New Pt Level 2 (89038) Diagnoses Right shoulder pain M25.511
== END 2023-11-02 15:25 | disposition home or self-care (01) ==
PROVIDERS: PCP Student in an Organized Health Care Education/Training Program; Visit Provider Orthopaedic Surgery
DX: M25.511 Pain in right shoulder (principal)
CPT/HCPCS: 99203

== ENCOUNTER → 2023-11-02 14:34 | Outpatient (BNVA) | payer OTHER, SELFPAY | PROVIDERS: PCP Student in an Organized Health Care Education/Training Program; Visit Provider Orthopaedic Surgery | DX: M25.511 Pain in right shoulder (principal); M25.811 Other specified joint disorders, right shoulder | CPT/HCPCS: 99202 ==

== ENCOUNTER 2023-11-12 08:32 | Outpatient (REF) | payer OTHER, SELFPAY ==
[2023-11-12 12:20] LABS: Thyroid Stimulating Hormone 2.07 uIU/mL (0.32-4.0)
== END 2023-11-12 08:33 | disposition home or self-care (01) ==
LOC: HO.HHCL 08:32
PROVIDERS: Visit Provider Internal Medicine Endocrinology, Diabetes & Metabolism
DX: E04.2 Nontoxic multinodular goiter (principal); E03.9 Hypothyroidism, unspecified
CPT/HCPCS: 36415; 84439; 84443

== ENCOUNTER 2023-11-17 08:38 | Outpatient (AMB) | payer OTHER, SELFPAY ==
--- NOTE | 2023-11-17 08:39 | A.OFFVIS_ITS ---
Vital Signs 11/17/23 08:40 Height 6 ft 2 in Weight 230 lb 2.601 oz BMI 29.5 BP 114/94 H Blood Pressure Location Lt brachial Position Sitting Pulse 68 Pulse Source Pulse Oximeter Intake Visit Reasons: FU NTMNG-no vm Intake Note: Patient present today for NTMNG follow up visit. Competitive Intelligence Manager Required: Yes Competitive Intelligence Manager Language: Cashier Office Name: [facility] medical staff Information Interpreted: non-clinical & clinical Accompanied by: Self / Same As Patient Allergies aspirin [ASPIRIN] Allergy (Unknown, Verified 11/17/23 08:53) ITCHING penicillin G Allergy (Unknown, Verified 11/17/23 08:53) Unknown Penicillins [PENICILLINS] Allergy (Unknown, Verified 11/17/23 08:53) SWELLING Medication List - Last Reconciled 11/17/23 by Buck Mandujano MD albuterol sulfate 90 mcg/actuation (Ventolin HFA) 2 puffs inhalation Q4H PRN alcohol swabs 1 pad topical QIDACHS atorvastatin 40 mg PO DAILY@1200 blood sugar diagnostic (FreeStyle Lite Strips) Test four times a day or as directed. blood-glucose meter (FreeStyle Lite Meter kit) As Directed carvedilol 3.125 mg PO BID@1200,2100 cholecalciferol (vitamin D3) 50 mcg PO DAILY@1200 flecainide 50 mg PO Q12H glipizide 5 mg PO BIDWM lancets (FreeStyle Lancets) Test four times a day or as directed. levothyroxine 50 mcg PO QAM losartan 50 mg PO BEDTIME metformin 500 mg PO BIDWM omeprazole 20 mg PO BID@0630,1630 paroxetine HCl 10 mg PO DAILY@1200 phenytoin sodium extended 200 mg PO BID@1200,2100 rivaroxaban (Xarelto) 20 mg PO DAILY HPI Comments Details: 63 YO M with PMHx seizure disorder who is seen in F/U for NTMNG and Hypothyroidism. The patient last saw Dr. Lomeli on 12/31/2021 Currently denies any compressive symptoms. Denies any symptoms of hyper or hypothyroidism. He takes Levothyroxine 25 mcg PO daily. Takes this in the morning with just water. Waits 1 hour to eat. Takes all of his other medications later in the day. Denies any history of head or neck irradiation. Denies any family history of thyroid cancer. Had thyroid US which revealed 2 subcentimeter nodules. Has never had a biopsy of these nodules. Thyroid US 11/27/2020: Right Thyroid Lobe: 4.4 x 1.5 x 1.1 cm, volume 3.8 mL. Previously 4.5 x 1.6 x 1.1 cm, volume 4.1 mL. Parenchyma: The gland echotexture is homogeneous. Thyroid vascularity is normal. Left Thyroid Lobe: 4.8 x 1.3 x 1.5 cm, volume 4.9 mL. Previously 4.7 x 1.6 x 1.6 cm, volume 6.3 mL. Parenchyma: The gland echotexture is homogeneous. Thyroid vascularity is normal. Isthmus: 0.3 cm in maximum AP dimension. Previously 0.3 cm. Estimated total number of nodules greater than or equal to 1 cm: 0. Manager Continuous Improvement nodules are described as follows: 1. Location: Right anterior mid. Size: 0.3 x 0.2 x 0.2 cm, volume 0.01 mL. Previously: 0.3 x 0.2 x 0.3 cm, volume 0.01 mL. Nodule characteristics: Composition: Cannot be determined (2). Echogenicity: Hypoechoic (2). Shape: Not taller than wide (0). Margins: Smooth (0). Echogenic Foci: None (0). ACR TI-RADS total points: 4 ACR TI-RADS category: 4 Comparison: No significant change. 2. Location: Left inferior. Size: 0.9 x 0.6 x 0.6 cm, volume 0.17 mL. Previously: 0.6 x 0.5 x 0.4 cm, volume 0.06 mL. Nodule characteristics: Composition: Cystic(0). ACR TI-RADS total points: 0 ACR TI-RADS category: 1 Comparison: No significant change. NODES: No lymphadenopathy is seen in the tissue surrounding the thyroid gland. Labs: Laboratory Tests 12/26/21 09:35 25-OH Vitamin D Total 39.7 TSH 2.11 Free T4 0.79 Currently on 50 mcg levothyroxine [facility] Medical History (Updated 11/02/23 @ 15:20 by Sid Granados MD) Atrial fibrillation with RVR Afib COVID-19 Asthma Epilepsy Vitamin D deficiency Hypothyroidism Multinodular thyroid Surgical History Hx of cardiac cath Family History Mother Heart problem Father Hypertension Social History Alcohol intake: never Patient Tobacco Use Status: Never used Tobacco service: No Current occupational status: disabled Current occupation: Right hand dominant Physical Exam Vital Signs: Last Vital Signs Pulse 68 11/17/23 08:40 BP 114/94 H 11/17/23 08:40 BMI result Body Mass Index 29.5 Const Other: Thyroid gland is normal size weighs about 15 g. There are no thyroid nodules palpated. Assessment & Plan Assessment & Plan (1) Hypothyroidism: Code(s): E03.9 - Hypothyroidism, unspecified Category: Medical Qualifiers: Hypothyroidism type: unspecified Qualified Code(s): E03.9 - Hypothyroidism, unspecified Plan: This 62-year-old male with a history of hypothyroidism currently on 50 mcg levothyroxine. He appears to be clinically and biochemically euthyroid Plan is to continue the current therapy (2) Multinodular thyroid: Code(s): E04.2 - Nontoxic multinodular goiter Category: Medical Plan: Multinodular goiter with subcentimeter nodules with ultrasound 12/31/2021 showing no change in the size of the nodules. Will repeat thyroid US. If nodules are stable in size, then pt can return to the care of his PCP Orders: Orders US thyroid Today E04.2 - Nontoxic multinodular goiter Coding Level of Care Code Est Pt Level 3 (06144) Diagnoses Hypothyroidism, unspecified type E03.9 Hypothyroidism type: unspecified Multinodular thyroid E04.2
[2023-11-17 08:40] VITALS: BP 114/94; PULSE 68; BMI 29.5
== END 2023-11-17 09:19 | disposition home or self-care (01) ==
PROVIDERS: PCP Student in an Organized Health Care Education/Training Program; Visit Provider Internal Medicine Endocrinology, Diabetes & Metabolism
DX: E03.9 Hypothyroidism, unspecified (principal); E04.2 Nontoxic multinodular goiter
CPT/HCPCS: 99213

== ENCOUNTER → 2023-11-17 08:38 | Outpatient (BNVA) | payer OTHER, SELFPAY | PROVIDERS: PCP Student in an Organized Health Care Education/Training Program; Visit Provider Internal Medicine Endocrinology, Diabetes & Metabolism | DX: E04.2 Nontoxic multinodular goiter (principal); E03.9 Hypothyroidism, unspecified | CPT/HCPCS: 99212 ==

== ENCOUNTER 2023-12-28 13:17 | Outpatient (AMB) | payer OTHER, SELFPAY ==
--- NOTE | 2023-12-28 13:23 | MHC.OFFVIS ---
Intake Visit Reasons: ov- MRI review of right shoulder Intake Note: Vinnie is a 63 year old male who presents today for a MRI review of his right shoulder. The patient states that since his last visit his right shoulder discomfort has improved significantly. He continues with his home stretching program. He reports mild discomfort in his shoulder. He denies any significant weakness. The patient states that this point his right shoulder discomfort is tolerable to him. Allergies aspirin [ASPIRIN] Allergy (Unknown, Verified 12/28/23 13:24) ITCHING penicillin G Allergy (Unknown, Verified 12/28/23 13:24) Unknown Penicillins [PENICILLINS] Allergy (Unknown, Verified 12/28/23 13:24) SWELLING Medication List - Last Reconciled 12/28/23 by Sid Granados MD albuterol sulfate 90 mcg/actuation (Ventolin HFA) 2 puffs inhalation Q4H PRN alcohol swabs 1 pad topical QIDACHS atorvastatin 40 mg PO DAILY@1200 blood sugar diagnostic (FreeStyle Lite Strips) Test four times a day or as directed. blood-glucose meter (FreeStyle Lite Meter kit) As Directed carbidopa-levodopa 25-100 mg tabs PO carvedilol 3.125 mg PO BID@1200,2100 cholecalciferol (vitamin D3) 50 mcg PO DAILY@1200 dulaglutide (Trulicity) mg subcut flecainide 50 mg PO Q12H glipizide 5 mg PO BIDWM lancets (FreeStyle Lancets) Test four times a day or as directed. levothyroxine 50 mcg PO QAM losartan 50 mg PO BEDTIME metformin 500 mg PO BIDWM omeprazole 20 mg PO BID@0630,1630 paroxetine HCl 10 mg PO DAILY@1200 phenytoin sodium extended 200 mg PO BID@1200,2100 rivaroxaban (Xarelto) 20 mg PO DAILY PFSH Medical History (Updated 11/02/23 @ 15:20 by Sid Granados MD) Atrial fibrillation with RVR Afib COVID-19 Asthma Epilepsy Vitamin D deficiency Hypothyroidism Multinodular thyroid Surgical History Hx of cardiac cath Family History Mother Heart problem Father Hypertension Social History (Reviewed 11/17/23 @ 08:55 by MALATHI Mohr Alcohol intake: never Patient Tobacco Use Status: Never used Tobacco service: No Current occupational status: disabled Current occupation: Right hand dominant Physical Exam Const Other: Well-nourished well-developed very friendly male awake alert and oriented x3 in no acute distress Extrem Other: Bilateral upper extremity examination shows good capillary refill, no skin lesions noted, normal sensation light touch Right shoulder examination shows full range fair to his left shoulder, 4+ out of 5 strength with supraspinatus testing, positive impingement signs, tenderness over his acromioclavicular joint, no instability Results Reviewed Results Reviewed: MRI of the patient's right shoulder show severe acromioclavicular joint narrowing, a type 2 acromion, signal change within the supraspinatus and subscapularis tendons consistent with rotator cuff tendinosis versus small tears Assessment & Plan Assessment & Plan (1) Right shoulder pain: Code(s): M25.511 - Pain in right shoulder Category: Medical Plan Mr. Wilian Salcido presents with intermittent right shoulder discomfort due to impingement syndrome, acromioclavicular joint arthritis and rotator cuff tendinosis versus a small tear. I had a lengthy discussion with the patient regarding the treatment options. At this point the patient's symptoms are tolerable to him. Will continue with his home stretching program. The do's and don'ts of lifting were discussed at length with the patient. Will follow up with me on an as-needed basis should his symptoms worsen in any way. Feel free to call me at any time should questions regarding his orthopedic management arise. I spent 22 minutes in reviewing the patient's records and imaging studies, seeing the patient and documenting in the medical record. Coding Level of Care Code Est Pt Level 3 (64645) Diagnoses Right shoulder pain M25.511
== END 2023-12-28 13:45 | disposition home or self-care (01) ==
PROVIDERS: PCP Student in an Organized Health Care Education/Training Program; Visit Provider Orthopaedic Surgery
DX: M25.511 Pain in right shoulder (principal)
CPT/HCPCS: 99213

== ENCOUNTER → 2023-12-28 13:17 | Outpatient (BNVA) | payer OTHER, SELFPAY | PROVIDERS: PCP Student in an Organized Health Care Education/Training Program; Visit Provider Orthopaedic Surgery | DX: M25.511 Pain in right shoulder (principal) | CPT/HCPCS: 99212 ==

== ENCOUNTER 2024-01-28 11:51 | Outpatient (REF) | payer OTHER, SELFPAY ==
--- NOTE | ~2024-01-28 | XR_ITS ---
EXAMINATION: XR CHEST CLINICAL INFORMATION: Pain and tenderness right supraclavicular area COMPARISON: November 25, 2022 TECHNIQUE: 2 views of the chest were obtained. FINDINGS: Lung volumes remain low. There is no gross pneumothorax. Cardiac silhouette appears borderline enlarged. No pleural effusion. No focal consolidation. Mild degenerative changes in the thoracic spine. XR/XR chest 2V IMPRESSION: 1. Cardiac silhouette appears borderline enlarged. 2. No focal consolidation to suggest pneumonia. Electronically signed by: Eloisa Ken MD 02/22/2024 01:33 PM EDT
== END 2024-01-28 11:52 | disposition home or self-care (01) ==
LOC: HO.XRAY 11:51
PROVIDERS: PCP Student in an Organized Health Care Education/Training Program; Visit Provider Emergency Medicine
DX: R07.9 Chest pain, unspecified (principal)
CPT/HCPCS: 71046

== ENCOUNTER 2024-02-23 19:44 | Emergency (ER) | payer OTHER, SELFPAY ==
--- NOTE | ~2024-02-23 | XR_ITS ---
EXAMINATION: XR CHEST CLINICAL INFORMATION: Right sided chest pain COMPARISON: 01/28/2024 TECHNIQUE: 2 views of the chest were obtained. FINDINGS: No significant abnormality is noted involving the heart, lungs, mediastinum, bony thorax or soft tissues. Heart size near upper limits of normal. XR/XR chest 2V IMPRESSION: Unremarkable examination. Electronically signed by: Gregorio Siegel MD 02/24/2024 01:01 AM EDT
--- NOTE | 2024-02-23 19:47 | ECG_ITS ---
Test Reason : CP Blood Pressure : / mmHG Vent. Rate : 086 BPM Atrial Rate : 086 BPM P-R Int : 190 ms QRS Dur : 086 ms QT Int : 388 ms P-R-T Axes : 044 001 -01 degrees QTc Int : 464 ms Normal sinus rhythm Minimal voltage criteria for LVH, may be normal variant ( R in aVL ) Nonspecific T wave abnormality Prolonged QT Abnormal ECG When compared with ECG of 25-NOV-2022 02:08, T wave inversion now evident in Anterior leads Referred By: Alethea Herbert Electronically Signed By:JOSE ROBERTO MACHADO
--- NOTE | 2024-02-23 20:02 | ED.GENADULT ---
HPI - General Adult General Chief complaint: Chest Pain Stated complaint: Chest pain Time Seen by Provider: 02/23/24 22:27 Source: patient and family Mode of arrival: ambulatory Limitations: no limitations History of Present Illness ED Provider: Dr. Francisco HPI narrative: Patient with epigastric and right sided chest pain that lasted for a few moments while at rest. He denies exertional chest pain. No shortness of breath Onset (ago): minute(s) Severity: mild Related Data Home Medications ?Medication ?Instructions ?Recorded ?Confirmed carvedilol 3.125 mg tablet 3.125 mg PO BID@1200,2100 01/01/21 12/28/23 cholecalciferol (vitamin D3) 50 50 mcg PO DAILY@1200 01/01/21 12/28/23 mcg (2,000 unit) capsule losartan 50 mg tablet 50 mg PO BEDTIME 01/01/21 12/28/23 omeprazole 20 mg capsule,delayed 20 mg PO BID@0630,1630 01/01/21 12/28/23 release paroxetine HCl 10 mg tablet 10 mg PO DAILY@1200 01/01/21 12/28/23 phenytoin sodium extended 100 mg 200 mg PO BID@1200,2100 01/01/21 12/28/23 capsule atorvastatin 40 mg tablet 40 mg PO DAILY@1200 11/25/22 12/28/23 albuterol sulfate 90 mcg/actuation 2 puff inhalation Q4H PRN wheezing 01/20/23 12/28/23 aerosol inhaler (Ventolin HFA) carbidopa 25 mg-levodopa 100 mg tab PO 12/28/23 12/28/23 tablet dulaglutide 0.75 mg/0.5 mL mg subcut 12/28/23 12/28/23 subcutaneous pen injector (Trulicity) Previous Rx's ?Medication ?Instructions ?Recorded alcohol swabs 1 pad topical QIDACHS #100 ea 11/25/22 blood sugar diagnostic (FreeStyle #100 ea 11/25/22 Lite Strips) blood-glucose meter (FreeStyle #1 ea 11/25/22 Lite Meter kit) flecainide 50 mg tablet 50 mg PO Q12H #60 tabs 11/25/22 glipizide 5 mg tablet 5 mg PO BIDWM #60 tabs 11/25/22 lancets 28 gauge (FreeStyle #100 ea 11/25/22 Lancets) metformin 500 mg tablet 500 mg PO BIDWM #60 tabs 11/25/22 rivaroxaban 20 mg tablet (Xarelto) 20 mg PO DAILY #30 tabs 11/25/22 levothyroxine 50 mcg tablet 50 mcg PO QAM #30 tabs 11/11/23 Allergies Allergy/AdvReac Type Severity Reaction Status Date / Time aspirin [ASPIRIN] Allergy Unknown ITCHING Verified 02/23/24 20:07 penicillin G Allergy Unknown Unknown Verified 02/23/24 20:07 Penicillins [PENICILLINS] Allergy Unknown SWELLING Verified 02/23/24 20:07 Review of Systems Review of Systems: Yes all other systems are reviewed and are negative Neurologic: Denies Sensory deficit (Neuro) [facility] Past Medical History Medical History Atrial fibrillation with RVR Afib COVID-19 Asthma Epilepsy Vitamin D deficiency Hypothyroidism Multinodular thyroid Surgical History Hx of cardiac cath Family History Family History Mother Heart problem Father Hypertension Social History Social History Alcohol intake: never Patient Tobacco Use Status: Never used Tobacco Smoked in Last 30 Days: No Use of substances other than those prescribed or required for medical reasons: No Advance Directives: No Advance Directives Information Provided: No service: No Current occupational status: disabled Current occupation: Right hand dominant Physical Exam ED Vital Signs: Vital Signs - 24 hr 02/23/24 20:03 02/23/24 22:10 Temperature 97.7 F 98.1 F Pulse Rate 85 82 Respiratory Rate 20 14 Blood Pressure 145/70 H 119/67 Pulse Oximetry 99 96 Oxygen Delivery Method Room Air Room Air BMI result Body Mass Index 35.6 Const General: healthy appearing Nutritional Appearance: average body habitus Orientation/consciousness: oriented to person and patient oriented x3 Limitations: no limitations HENMT Head: Yes normal to inspection Ears: external ears normal General nose exam: Normal external nose present Mouth: Normal oral and palatal mucosa present and oropharynx normal Throat: Yes posterior oropharynx normal Eyes General: appearance normal, both eyes and all related structures Neck Neck: Yes normal visual inspection Chest Chest palpation & inspection: normal inspection of the chest Resp Auscultation: clear to auscultation bilaterally Cardio Jugular venous distension: no JVD Rate: regular rate Rhythm: regular rhythm Heart sounds: S1 normal heart sound present and S2 normal heart sound present GI Inspection: Yes normal to inspection Palpation (GI): Soft to palpation, nontender and No hepatosplenomegaly present Auscultation: normal bowel sounds General: Yes no CVA tenderness Back/Spine/Pelvis Back: no CVA tenderness Skin General skin exam: no rashes or lesions noted Neuro General: oriented to person and patient oriented x3 Cranial nerves: Yes CN's II-XII intact bilaterally Motor exam (neuro): 5/5 motor strength present throughout Sensory Exam: No Sensory deficit (Neuro) Extrem General: Yes normal to inspection Psych Appearance: grossly normal Course Course Course Narrative: This is an RME done by LIOR Herbert: Additional HPI, ROS, PE not included below will be deferred to primary provider. 63 year old M presenting with stabbing chest pain (8/10) for the past few hours. Denies sob, nausea, vomiting. Patient is on xarelto. Plan- labs, EKG Appearance: Alert.? Oriented X3.? No acute cardiopulmonary distress.? Head: Normocephalic, atraumatic, no step-offs or deformities Neck: Normal inspection.? Neck supple.? CVS: Pulses normal.? Respiratory: No respiratory distress.? Abdomen: Soft and nontender.? Skin: ? Normal skin color. Extremities: 5/5 strength to bilateral upper and lower extremities Neuro: Oriented X 3.? No motor deficit.? No sensory deficit. Reevaluation(s) Reevaluation #1: patient with a few moments of chest pain, EKG and serial troponnins negative, CXR shows no infiltrate. Doubt that this episode is cardiac will dc home with follow up Time: 02:07 Medical Decision Making Differential Diagnosis Differential Diagnoses: The differential diagnosis associated with the presentation includes (STEMI, cardiac ischemia, pneumonia, chest pain) Admission/Observation Consideration of admission/observation: Escalation of care including admission/observation considered (upon arrival patient was considered for admission) Lab Data 02/23/24 20:01 02/23/24 20:01 Labs: Lab Results 08/28/24 08/28/24 Range/Units 20:01 22:52 WBC 10.1 (4.8-10.8) X10*3/uL RBC 4.41 L (4.60-5.80) X10*6/uL Hgb 13.6 L (14.0-18.0) g/dl Hct 39.3 L (42.0-52.0) % MCV 89.1 (80.0-98.0) fL MCH 30.8 (27.0-33.0) pg MCHC 34.6 (31.0-36.0) g/dl RDW 12.5 (11.0-16.0) % Plt Count 187 (160-400) X10*3/uL MPV 9.0 L (9.4-12.4) fL Immature Gran % (Auto) 0.2 (0.0-0.4) % Neut % (Auto) 49.4 (45-73) % Lymph % (Auto) 38.3 (20-40) % [place] % (Auto) 9.1 (2-11) % Eos % (Auto) 2.8 (0-4) % Baso % (Auto) 0.2 (0-2) % Lymph # (Auto) 3.9 (1.2-4.9) X10*3/uL [place] # (Auto) 0.9 (0.1-1.2) X10*3/uL Eos # (Auto) 0.3 (0.0-0.4) X10*3/uL Baso # (Auto) 0.0 (0.0-0.2) X10*3/uL Abs Immat Gran (auto) 0.02 (0.00-0.03) X10*3/uL Absolute Neuts (auto) 5.0 (2.0-8.3) x10*3/uL Absolute Nucleated RBC 0.000 (0.0-0.012) X10*3/uL Nucleated RBC % (auto) 0.0 (0.0-0.2) /100WBC PT 14.9 H (11.1-13.3) SEC INR 1.2 H (0.9-1.1) Sodium 139 (135-145) mmol/L Potassium 3.6 (3.3-5.1) mmol/L Chloride 105 (96-108) mmol/L Carbon Dioxide 25 (22-29) mmol/L Anion Gap 13 (12-20) BUN 20 H (9-16) mg/dL Creatinine 1.04 (0.5-1.4) mg/dL Estim Creat Clear Calc 86.9 Estimated GFR > 60 Random Glucose 154 H (60-115) mg/dL Calcium 9.4 (8.4-10.2) mg/dL Magnesium 1.6 (1.6-2.6) mg/dL Total Bilirubin 0.2 (0.0-1.0) mg/dL AST 18 (5-37) U/L ALT 16 (0-40) U/L Alkaline Phosphatase 84 (39-117) U/L Troponin I High Sens < 2.7 < 2.7 (<3.5-35.0) ng/L Total Protein 7.2 (6.5-8.0) g/dL Albumin 4.0 (3.5-5.0) g/dL Independent Interpretation I performed an independent interpretation of an: EKG (sinus 85, no st or twave changes) and Plain X-Ray (CXR: no infiltrate) Independent Historian Clinical information obtained from an independent historian. History obtained from or confirmed by: Spouse Prescription Management I considered prescription management with: Antibiotic (CXR no infiltrate) Chronic Conditions Patient?s care impacted by: Diabetes and Other (PAF) Discharge Plan Discharge Clinical Impression: Chest pain Patient Disposition: Home, Self-Care Instructions: Chest Pain (ED) Prescriptions: No Action levothyroxine 50 mcg tablet 50 mcg PO QAM Qty: 30 5RF atorvastatin 40 mg tablet 40 mg PO DAILY@1200 metformin 500 mg Tablet 500 mg PO BIDWM Qty: 60 0RF glipizide 5 mg Tablet 5 mg PO BIDWM Qty: 60 0RF flecainide 50 mg tablet 50 mg PO Q12H Qty: 60 0RF Xarelto 20 mg tablet 20 mg PO DAILY Qty: 30 0RF Rx Instructions: must administer with evening meal (DME) FreeStyle Lite Strips Strip Qty: 100 0RF Rx Instructions: Test four times a day or as directed. (DME) blood-glucose meter [FreeStyle Lite Meter] Kit Qty: 1 0RF Rx Instructions: As Directed alcohol swabs Pads, Medicated 1 pad TOPICAL QIDACHS Qty: 100 0RF Rx Instructions: Use four times a day or as directed. (DME) lancets [FreeStyle Lancets] 28 gauge misc Qty: 100 0RF Rx Instructions: Test four times a day or as directed. carvedilol 3.125 mg tablet 3.125 mg PO BID@1200,2100 losartan 50 mg tablet 50 mg PO BEDTIME cholecalciferol (vitamin D3) 50 mcg (2,000 unit) capsule 50 mcg PO DAILY@1200 omeprazole 20 mg capsule,delayed release(DR/EC) 20 mg PO BID@0630,1630 phenytoin sodium extended 100 mg capsule 200 mg PO BID@1200,2100 paroxetine HCl 10 mg tablet 10 mg PO DAILY@1200 albuterol sulfate [Ventolin HFA] 90 mcg/actuation HFA aerosol inhaler 2 puff inhalation Q4H PRN (Reason: wheezing) Trulicity 0.75 mg/0.5 mL pen injector subcut carbidopa-levodopa 25-100 mg tablet PO Referrals: Kristen Cedeno MD [Primary Care Provider] - 3 days Print Language: Latvian
[2024-02-23 20:03] VITALS: BP 145/70; PULSE 85; RESP 20; TEMP 36.5; O2SAT 99; BMI 35.6
[2024-02-23 20:05] LABS: MANUAL DIFF FLAG NO
[2024-02-23 20:07] LABS: Basophils Percent Auto 0.2 % (0-2); Eosinophils Absolute Auto 0.3 X10*3/uL (0.0-0.4); Eosinophils Percent Auto 2.8 % (0-4); Hematocrit 39.3 % (42.0-52.0); Hemoglobin 13.6 g/dl (14.0-18.0); Imm Gran Abs Auto 0.02 X10*3/uL (0.00-0.03); Imm Gran Pct Auto 0.2 % (0.0-0.4); Lymphocytes Absolute Auto 3.9 X10*3/uL (1.2-4.9); Lymphocytes Percent Auto 38.3 % (20-40); Mean Corpuscular HGB Conc 34.6 g/dl (31.0-36.0); Mean Corpuscular Hemoglobin 30.8 pg (27.0-33.0); Mean Corpuscular Volume 89.1 fL (80.0-98.0); Monocytes Absolute Auto 0.9 X10*3/uL (0.1-1.2); Monocytes Percent Auto 9.1 % (2-11); Neutrophils Percent Auto 49.4 % (45-73); Platelet Count 187 X10*3/uL (160-400); Red Blood Count 4.41 X10*6/uL (4.60-5.80); Red Cell Distribution Width 12.5 % (11.0-16.0); White Blood Count 10.1 X10*3/uL (4.8-10.8)
[2024-02-23 20:22] LABS: Alanine Aminotransferase 16 U/L (0-40); Alkaline Phosphatase 84 U/L (39-117); Anion Gap 13 (12-20); Aspartate Amino Transferase 18 U/L (5-37); Bilirubin Total 0.2 mg/dL (0.0-1.0); Blood Urea Nitrogen 20 mg/dL (9-16); Calcium 9.4 mg/dL (8.4-10.2); Carbon Dioxide 25 mmol/L (22-29); Chloride 105 mmol/L (96-108); Creatinine Clr Calc Pharmacy 86.9; Estimated Glomerular Filt Rate > 60; Glucose Random 154 mg/dL (60-115); Magnesium 1.6 mg/dL (1.6-2.6); Potassium 3.6 mmol/L (3.3-5.1); Sodium 139 mmol/L (135-145); Total Protein 7.2 g/dL (6.5-8.0)
[2024-02-23 20:24] LABS: INTERNATIONAL NORM RATIO 1.2 (0.9-1.1); Prothrombin Time 14.9 SEC (11.1-13.3)
[2024-02-23 20:30] LABS: Troponin-I High Sensitivity < 2.7 ng/L (<3.5-35.0)
--- OUTSIDE RECORDS SUMMARY | 2024-02-23 22:03 | XMS_ITS | Continuity of Care Document ---
Author Organization [facility] Address [address] [facility], 3r d Floor, [address] [place] [id number]- Care Team Providers Care Director Instrumentation Name Role Phone Carlotta Sharif Primary Care Physician [phone] Encounter [facility] [place] Date(s): 08/25/19 - 12/06/19 [facility] [address] [facility], 3rd Floor, [address] [place] [id number]- [facility] Attending Physician: Alan Cisneros MD Admitting Physician: Alan Cisneros MD Referring Physician: Carlotta Sharif
--- OUTSIDE RECORDS SUMMARY | 2024-02-23 22:03 | XMS_ITS | Continuity of Care Document ---
Author Organization [facility] Address [address] [place] [id number]- Care Team Providers Care Patent Lawyer Name Role Phone Carlotta Sharif Primary Care Physician Encounter [facility] [place] Date(s): 11/08/19 - 01/13/[address] [phone] [facility] Attending Physician: Alan Cisneros MD Admitting Physician: Alan Cisneros MD Referring Physician: Alan Cisneros MD
--- OUTSIDE RECORDS SUMMARY | 2024-02-23 22:03 | XMS_ITS | Continuity of Care Document ---
Author Organization [facility] Address [address] [facility], 3r d Floor, [address] [place] [address]- Care Team Providers Care Assistant Production Editor Name Role Phone Carlotta Sharif Primary Care Physician [place] [facility] [place](s): 11/06/19 - 11/13/19 [facility] [address] [facility], 3rd Floor, [address] [place] [address]- [facility] Attending Physician: Amelia BAILEY, Alan Vivas
--- OUTSIDE RECORDS SUMMARY | 2024-02-23 22:03 | XMS_ITS | Continuity of Care Document ---
Author Organization [facility] Address [address] [facility], 3r d Floor, [address] [place] [phone]- Care Team Providers Care Blind Slat Stapling Machine Operator Name Role Phone Carlotta Sharif Primary Care Physician [phone] [place] [facility] [place] - 12/06/19 [facility] [address] [facility], 3rd Floor, [address] [place] [id number]- [facility] Attending Physician: Thee Borden Admitting Physician: Thee Borden Referring Physician: Thee Borden
--- OUTSIDE RECORDS SUMMARY | 2024-02-23 22:03 | XMS_ITS | Continuity of Care Document ---
Author Organization [facility] Address [address] [facility], 3r d Floor, [address] [place] [address]- Care Team Providers Care Human Resources Communications Manager Name Role Phone Carlotta Sharif Primary Care Physician [place] [facility] [place] 12/23/23 - 01/22/24 [facility] [address] [address], [address] [place] [id number] Allergies, Adverse Reactions, Alerts Substance Reaction Severity Status penicillin Active aspirin Angioedema Active Medications atorvastatin 40 mg oral tablet 1 tablet = 40 mg, By Mouth, Daily, # 90 tablet, 0 Refills, Maintenance, 07/20/23 11:10:00 EST, Tablet, Partial fill upon patient request if the prescription is for a schedule II opioid drug. Start Date: 07/20/23 Status: Ordered baclofen 10 mg tablet baclofen 10 mg tablet, 0 Refills, Maintenance, 11/16/23 11:01:00 EDT Start Date: 11/16/23 Status: Ordered carvedilol 3.125 mg oral tablet 3.125 mg, 1, tablet, By Mouth, 2 times a day, # 180 tablet, Refills 0, Maintenance, 07/20/23 11:10:00 EST, Partial fill upon patient request if the prescription is for a schedule II opioid drug. Start Date: 07/20/23 Status: Ordered flecainide 50 mg oral tablet 50 mg, 1, tablet, By Mouth, Every 12 hours, # 180 tablet, Refills 0, Maintenance, 07/20/23 11:11:00EST, Partial fill upon patient request if the prescription is for a schedule II opioid drug. Start Date: 07/20/23 Status: Ordered levothyroxine 0.05 mg oral tablet 1 tablet = 50 mcg, By Mouth, Daily, # 30 tablet, 0 Refills, Maintenance, 07/20/23 11:10:00 EST, Tablet, Partial fill upon patient request if the prescription is for a schedule II opioid drug. Start Date: 07/20/23 Status: Ordered losartan 50 mg oral tablet 1 tablet = 50 mg, By Mouth, Daily, # 30 tablet, 0 Refills, Maintenance, 07/20/23 11:10:00 EST, Tablet, Partial fill upon patient request if the prescription is for a schedule II opioid drug. Start Date: 07/20/23 Status: Ordered metFORMIN 500 mg oral tablet 0 Refills, Maintenance, 11/16/23 11:01:00 EDT, Partial fill upon patient request if the prescription is for a schedule II opioid drug. Start Date: 11/16/23 Status: Ordered omeprazole 40 mg oral enteric coated capsule 1 capsule = 40 mg, By Mouth, Daily, # 30 capsule, 0 Refills, Maintenance, 07/20/23 11:10:00 EST, ECCapsule, Partial fill upon patient request if the prescription is for a schedule II opioid drug. Start Date: 07/20/23 Status: Ordered PARoxetine 10 mg oral tablet 10 mg, 1, tablet, By Mouth, Daily, # 30 tablet, Refills 0, Maintenance, 07/20/23 11:12:00 EST, Partial fill upon patient request if the prescription is for a schedule II opioid drug. Start Date: 07/20/23 Status: Ordered phenytoin 100 mg oral capsule, extended release 2 capsule = 200 mg, By Mouth, 2 times a day, Afternoon and evening, # 360 capsule, 2 Refills, Maintenance, 01/10/24 13:45:00 EDT, ER Capsule, [facility], Partial fill upon patientrequest if the prescription is for a schedule II op... Start Date: 01/10/24 Stop Date: 10/06/24 Status: Ordered Sinemet 25 mg-100 mg oral tablet 1 tablet, By Mouth, 3 times a day, Take with meals, # 270 tablet, 5 Refills, Maintenance, 12/01/23 11:21:00 EDT, Tablet, [facility], Serbian labels please, 1 tablet By Mouth 3 times a day,x90 days,Instr:Take with meals, 175.2, cm,... Start Date: 12/01/23 Stop Date: 05/24/25 Status: Ordered Trulicity Pen 0.75 mg/0.5 mL subcutaneous solution 0 Refills, Maintenance, 11/16/23 11:01:00 EDT, Partial fill upon patient request if the prescription is for a schedule II opioid drug. Start Date: 11/16/23 Status: Ordered Vimpat 100 mg oral tablet 1 tablet = 100 mg, By Mouth, 2 times a day, # 180 tablet, 2 Refills, Maintenance, 12/01/23 16:55:00EDT, Tablet, [facility], Partial fill upon patient request if the prescription is for a schedule II opioid drug., 175.2, cm, ... Start Date: 12/01/23 Status: Ordered Vitamin B-12 500 mcg oral tablet 1 tablet = 500 mcg, By Mouth, Daily, # 30 tablet, 0 Refills, Maintenance, 07/20/23 11:11:00 EST, Tablet, Partial fill upon patient request if the prescription is for a schedule II opioid drug. Start Date: 07/20/23 Status: Ordered Vitamin D3 1000 intl units oral tablet 1 tablet = 25 mcg, By Mouth, Daily, # 30 tablet, 0 Refills, Maintenance, 07/20/23 11:11:00 EST, Tablet, Partial fill upon patient request if the prescription is for a schedule II opioid drug. Start Date: 07/20/23 Status: Ordered Xarelto 20 mg oral tablet 1 tablet = 20 mg, By Mouth, Daily in PM, # 30 tablet, 0 Refills, Maintenance, 07/20/23 11:09:00 EST, Tablet, Partial fill upon patient request if the prescription is for a schedule II opioid drug. Start Date: 07/20/23 Status: Ordered Problem List Condition Confirmation Course Effective Dates Status Health St atus Informant Obese class I Confirmed Active Social History Social History Type Response Smoking Status Never (less than 100 in lifetime) entered on: 07/20/23 Sex Patient Care team information Care Team Personnel Name: Carlotta Sharif Position: Reference Physician Member Role: PCP Address: Address: [address] [facility] [place] [address]- Care Team Related Persons Name: TIFFANY RAHMAN
--- OUTSIDE RECORDS SUMMARY | 2024-02-23 22:03 | XMS_ITS | Continuity of Care Document ---
Author Organization [facility] Address [address] [place] [address], [address]r d Floor, [address] [place] [phone]- Care Team Providers Care Manager Oracle Name Role Phone Carlotta Sharif Primary Care Physician [place] [facility] [place]s): 01/12/23 - 04/23/23 [facility] [address] [facility], 3rd Floor, [address] [place] [id number] Attending Physician: Remi Watson MD Admitting Physician: Remi Watson MD Referring Physician: Carlotta Sharif Patient Care team information Care Team Personnel Name: Carlotta Sharif Position: [facility] Outreach Member Role: PCP Address: Address: [address] [place] [id number]
--- OUTSIDE RECORDS SUMMARY | 2024-02-23 22:03 | XMS_ITS | Continuity of Care Document ---
Author Organization [facility] Address [address] [facility], 3r d Floor, [address] [place] [id number]- Care Team Providers Care Barrel Bung Remover And Dumper Name Role Phone Carlotta Sharif Primary Care Physician [phone] [place] [facility] [place] 02/06/24 [facility] [address] [place] [address], [address] [place] [id number] Allergies, Adverse Reactions, Alerts Substance Reaction Severity [...] Refills, Maintenance, 01/10/24 13:45:00 EDT, ER Capsule, [facility], Partial fill upon patientrequest if the prescription is for a schedule II op... Start Date: 01/10/24 Stop Date: 10/06/24 Status: Ordered Sinemet 25 mg-100 mg oral tablet 1 tablet, By Mouth, 3 times a day, Take with meals, # 270 tablet, 5 Refills, Maintenance, 12/01/23 11:21:00 EDT, Tablet, [facility], Malaysian labels please, 1 tablet By Mouth 3 [...] tablet, 2 Refills, Maintenance, 12/01/23 16:55:00EDT, Tablet, [facility], Partial fill upon patient request [...] Member Role: PCP Address: Address: [address] [facility] [place] [address]- Care Team Related Persons Name: TIFFANY RAHMAN
--- OUTSIDE RECORDS SUMMARY | 2024-02-23 22:03 | XMS_ITS | Continuity of Care Document ---
Author Organization [facility] Address [address] [facility], 3r d Floor, [address] [place] [phone]- Care Team Providers Care Cougar Hunter Name Role Phone Carlotta Sharif Primary Care Physician [place] [facility] [place]s): 08/03/23 - 09/02/23 [facility] [address], 3[address], [address] [place] [id number]- Allergies, Adverse Reactions, Alerts Substance Reaction Severity Status penicillin Active aspirin Angioedema Active Medications atorvastatin 40 mg oral tablet 1 tablet = 40 mg, By Mouth, Daily, # 90 tablet, 0 Refills, Maintenance, 07/20/23 11:10:00 EST, Tablet, Partial fill upon patient request if the prescription is for a schedule II opioid drug. Start Date: 07/20/23 Status: Ordered carvedilol 3.125 mg oral tablet [...] opioid drug. Start Date: 07/20/23 Status: Ordered omeprazole 40 mg oral enteric [...] phenytoin 100 mg oral capsule, extended release 0 Refills, Maintenance, 07/20/23 11:09:00 EST, Partial fill upon patient request if the prescription is for a schedule II opioid drug. Start Date: 07/20/23 Status: Ordered Sinemet 25 mg-100 mg oral tablet 0.5 tablet, By Mouth, 3 times a day, Take with meals, # 135 tablet, 5 Refills, Maintenance, 07/21/23 11:04:00 EST, Tablet, [facility], Latvian labels please, 0.5 tablet By Mouth 3times a day,x90 days,Instr:Take with meals, 175.2,... Start Date: 07/21/23 Stop Date: 01/11/25 Status: Ordered Vitamin B-12 500 mcg oral [...] Care Team Personnel Name: Carlotta Sharif Position: [facility] Outreach Member Role: PCP Address: Address: [address] [place] [address]- Care Team Related Persons Name: TIFFANY RAHMAN
[2024-02-23 22:10] VITALS: BP 119/67; PULSE 82; RESP 14; TEMP 36.7; O2SAT 96
--- NOTE | 2024-02-23 22:18 | PC.NURSE ---
Pt ca&ox4, no signs of distress. Pt denies pain at this time. Chest pain has resolved Pt placed on bedside monitor Family at bedside. Plan of care ongoing.
[2024-02-23 23:35] LABS: Troponin-I High Sensitivity < 2.7 ng/L (<3.5-35.0)
[2024-02-24 02:23] VITALS: BP 119/67; PULSE 82; RESP 14; TEMP 36.7; O2SAT 96
== END 2024-02-24 02:24 | disposition home or self-care (01) ==
PROVIDERS: Physician Assistant; Emergency Provider Emergency Medicine; PCP Student in an Organized Health Care Education/Training Program
DX: R07.9 Chest pain, unspecified (principal); E11.9 Type 2 diabetes mellitus without complications; I48.0 Paroxysmal atrial fibrillation; Z79.02 Long term (current) use of antithrombotics/antiplatelets; Z79.85 Long-term (current) use of injectable non-insulin antidiabetic drugs; Z79.84 Long term (current) use of oral hypoglycemic drugs; Z79.01 Long term (current) use of anticoagulants; Z79.899 Other long term (current) drug therapy
CPT/HCPCS: 36415; 71046; 80053; 83735; 84484; 85025; 85610; 93005; 99283; 99285

== ENCOUNTER 2024-04-28 17:12 | Outpatient (REF) | payer OTHER, SELFPAY | END 2024-04-28 17:13 | disposition home or self-care (01) | LOC: HO.CT 17:12 | PROVIDERS: PCP Student in an Organized Health Care Education/Training Program; Visit Provider Emergency Medicine | DX: R20.0 Anesthesia of skin (principal) | CPT/HCPCS: 70450 ==

== ENCOUNTER 2024-05-02 09:55 | Outpatient (REF) | payer OTHER, SELFPAY ==
[2024-05-02 11:34] LABS: Hematocrit 43.4 % (42.0-52.0); Hemoglobin 15.5 g/dl (14.0-18.0); Mean Corpuscular HGB Conc 35.7 g/dl (31.0-36.0); Mean Corpuscular Hemoglobin 31.5 pg (27.0-33.0); Mean Corpuscular Volume 88.2 fL (80.0-98.0); Mean Platelet Volume 9.7 fL (9.4-12.4); Platelet Count 254 X10*3/uL (160-400); Red Blood Count 4.92 X10*6/uL (4.60-5.80); Red Cell Distribution Width 12.4 % (11.0-16.0)
[2024-05-02 12:06] LABS: Estimated Average Glucose 114 mg/dL; Hemoglobin A1C 153.4714 umol/L; Hemoglobin A1c % 5.6 % (<6.0); Total Hemoglobin (HGBA1C) 4023.3608 umol/L
[2024-05-02 12:16] LABS: Creatinine Urine 203.44 mg/dL; Microalbum/Creatinine Ratio Ur 79.1 ug/mg cr (<30)
[2024-05-02 12:20] LABS: Alanine Aminotransferase 44 U/L (0-40); Albumin Level 4.1 g/dL (3.5-5.0); Alkaline Phosphatase 97 U/L (39-117); Anion Gap 15 (12-20); Aspartate Amino Transferase 32 U/L (5-37); Bilirubin Total 0.3 mg/dL (0.0-1.0); Blood Urea Nitrogen 13 mg/dL (9-16); Calcium 9.7 mg/dL (8.4-10.2); Carbon Dioxide 27 mmol/L (22-29); Chloride 103 mmol/L (96-108); Cholesterol 145 mg/dL (<200); Estimated Glomerular Filt Rate > 60; Glucose Random 99 mg/dL (60-115); HDL Cholesterol 50 mg/dL (>40); LDL Cholesterol Calculated 59 mg/dL (<100); Potassium 4.1 mmol/L (3.3-5.1); Sodium 141 mmol/L (135-145); Total Protein 7.6 g/dL (6.5-8.0); Triglycerides 182 mg/dL (<150)
[2024-05-02 12:40] LABS: Free T4 (Free Thyroxine) 0.95 ng/dL (0.71-1.85); Thyroid Stimulating Hormone 2.37 uIU/mL (0.32-4.0)
[2024-05-02 12:45] LABS: Folate 4.7 ng/mL (> or = 4.0); Vitamin B12 1298 pg/mL (200-900)
[2024-05-02 14:21] LABS: CT PCR NOT DETECTED (Not Detect.); NG PCR NOT DETECTED (Not Detect.)
[2024-05-03 08:59] LABS: HBS Num1 117.42 mIU/mL (0-7.99); HBc Num1 0.13 S/CO (0.00-0.79); HBsAGNum1 0.26 S/CO (0.00-0.99); HIV AB/AG Nonreactive (Nonreactive); HIV Num 1 0.16 S/CO (0.00-0.99); Hepatitis B Core Antibody Nonreactive (Nonreactive); Hepatitis B Surface Antigen Negative (Negative); ~HepC Num1 0.09 S/CO (0.00-0.79); ~Hepatitis B Surface Antibody REACTIVE (Nonreactive); ~Hepatitis C Antibody Nonreactive (Nonreactive)
[2024-05-03 09:13] LABS: Syphilis Screen Nonreactive (Nonreactive)
== END 2024-05-02 09:56 | disposition home or self-care (01) ==
LOC: HO.HHCL 09:55
PROVIDERS: Visit Provider Student in an Organized Health Care Education/Training Program
DX: Z00.00 Encounter for general adult medical examination without abnormal findings (principal); Z12.5 Encounter for screening for malignant neoplasm of prostate; Z13.1 Encounter for screening for diabetes mellitus
CPT/HCPCS: 36415; 80053; 80061; 82043; 82306; 82570; 82607; 82746; 83036; 84153; 84439; 84443; 85027; 86704; 86706; 86780; 86803; 87340; 87389; 87491; 87591

== ENCOUNTER 2024-05-19 15:48 | Outpatient (REF) | payer OTHER, SELFPAY | END 2024-05-19 15:49 | disposition home or self-care (01) | LOC: HO.US 15:48 | PROVIDERS: PCP Student in an Organized Health Care Education/Training Program; Visit Provider Student in an Organized Health Care Education/Training Program | DX: E04.1 Nontoxic single thyroid nodule (principal) | CPT/HCPCS: 76536 ==

== ENCOUNTER 2024-05-28 20:55 | Emergency (ER) | payer OTHER, SELFPAY ==
[2024-05-28 21:09] VITALS: BP 144/83; PULSE 88; RESP 18; TEMP 36.6; O2SAT 97; BMI 32.6
--- NOTE | 2024-05-28 21:13 | ECG_ITS ---
Test Reason : ACCIDENTAL MED INGGESTION Blood Pressure : / mmHG Vent. Rate : 088 BPM Atrial Rate : 088 BPM P-R Int : 206 ms QRS Dur : 092 ms QT Int : 364 ms P-R-T Axes : 065 004 023 degrees QTc Int : 440 ms Normal sinus rhythm Normal ECG When compared with ECG of 23-FEB-2024 19:46, T wave inversion no longer evident in Anterior leads Referred By: Rose Zavala Electronically Signed By:Randolph Delcid
--- NOTE | 2024-05-28 21:26 | PC.NURSE ---
Contacted Poison Control and they stated patient should be ok and no further interventions were needed at this time. THey stated they would call back at a later time tonight to check on the patient.
[2024-05-28 21:28] VITALS: BP 137/72; PULSE 92; RESP 17; TEMP 37.2; O2SAT 97
--- OUTSIDE RECORDS SUMMARY | 2024-05-28 21:55 | XMS_ITS | Continuity of Care Document ---
Author Organization [facility] Address [address], [address], [address] [place] [id number] Care Team Providers Care Preflight Inspector Name Role Phone Jak Soto MD, Kristen Mcguire Primary Care Donaldo lion Encounter [facility] Date(s): 04/13/24 - 05/13/24 [facility] [address], [address] [place] [id number] Attending Physician: Thee Borden Admitting Physician: Thee Borden Referring Physician: Admtr ArTaina Encounter Type: Triage Allergies, Adverse Reactions, Alerts Substance Criticality Severity Reaction Reaction Severity Status penicillin Active aspirin Angioedema Active Medications atorvastatin 40 mg oral tablet 1 tablet = 40 mg, By Mouth, Daily, # 90 tablet, 0 Refills, Maintenance, 07/20/23 11:10:00 AM EST, Tablet, Partial fill upon patient request if the prescription is for a schedule II opioid drug. Start Date: 07/20/23 Status: Ordered Quantity: 90.0 Unit: tablet Repeat number: 1 carvedilol 3.125 mg oral tablet 3.125 mg, 1, tablet, By Mouth, 2 times a day, # 180 tablet, Refills 0, Maintenance, 07/20/23 11:10:00 AM EST, Partial fill upon patient request if the prescription is for a schedule II opioid drug. Start Date: 07/20/23 Status: Ordered Quantity: 180.0 Unit: tablet Repeat number: 1 flecainide 50 mg oral tablet 50 mg, 1, tablet, By Mouth, Every 12 hours, # 180 tablet, Refills 0, Maintenance, 07/20/23 11:11:00 AM EST, Partial fill upon patient request if the prescription is for a schedule II opioid drug. Start Date: 07/20/23 Status: Ordered Quantity: 180.0 Unit: tablet Repeat number: 1 levothyroxine 0.05 mg oral tablet 1 tablet = 50 mcg, By Mouth, Daily, # 30 tablet, 0 Refills, Maintenance, 07/20/23 11:10:00 AM EST, Tablet, Partial fill upon patient request if the prescription is for a schedule II opioid drug. Start Date: 07/20/23 Status: Ordered Quantity: 30.0 Unit: tablet Repeat number: 1 losartan 50 mg oral tablet 1 tablet = 50 mg, By Mouth, Daily, # 30 tablet, 0 Refills, Maintenance, 07/20/23 11:10:00 AM EST, Tablet, Partial fill upon patient request if the prescription is for a schedule II opioid drug. Start Date: 07/20/23 Status: Ordered Quantity: 30.0 Unit: tablet Repeat number: 1 metFORMIN 500 mg oral tablet 0 Refills, Maintenance, 11/16/23 11:01:00 AM EDT, Partial fill upon patient request if the prescription is for a schedule II opioid drug. Start Date: 11/16/23 Status: Ordered Repeat number: 1 omeprazole 40 mg oral enteric coated capsule 1 capsule = 40 mg, By Mouth, Daily, # 30 capsule, 0 Refills, Maintenance, 07/20/23 11:10:00 AM EST, EC Capsule, Partial fill upon patient request if the prescription is for a schedule II opioid drug. Start Date: 07/20/23 Status: Ordered Quantity: 30.0 Unit: capsule Repeat number: 1 PARoxetine 10 mg oral tablet 10 mg, 1, tablet, By Mouth, Daily, # 30 tablet, Refills 0, Maintenance, 07/20/23 11:12:00 AM EST, Partial fill upon patient request if the prescription is for a schedule II opioid drug. Start Date: 07/20/23 Status: Ordered Quantity: 30.0 Unit: tablet Repeat number: 1 phenytoin 100 mg oral capsule, extended release 2 capsule = 200 mg, By Mouth, 2 times a day, taper phenytoin: current dose is 200 mg (2 capsules) in am and 200 mg (2 capsules) in pm - week one: 1 capsule in am, 2 capsules in pm - week two: 1 capsule twice a day - week three: 1 capsule at bedtime - week four: stop phenytoin, # 42 capsule, 0 Refills, Maintenance, 04/28/24 5:35:00 PM EDT, ER Capsule, [facility], Partial fill upon patient request if the prescription is for a schedule II opioid drug., 175.2, cm, 04/13/24 8:04:00 EDT, Height Start Date: 04/28/24 Status: Ordered Quantity: 42.0 Unit: capsule Repeat number: 1 Sinemet 25 mg-100 mg oral tablet 1 tablet, By Mouth, 3 times a day, Take with meals, # 270 tablet, 5 Refills, Maintenance, 12/01/23 11:21:00 AM EDT, Tablet, [facility], Yemeni labels please, 1 tablet By Mouth 3 times a day,x90 days,Instr:Take with meals, 175.2, cm, 11/16/23 10:52:00 EDT, Height Start Date: 12/01/23 Stop Date: 05/24/25 Status: Ordered Quantity: 270.0 Unit: tablet Repeat number: 6 Trulicity Pen 0.75 mg/0.5 mL subcutaneous solution 0 Refills, Maintenance, 11/16/23 11:01:00 AM EDT, Partial fill upon patient request if the prescription is for a schedule II opioid drug. Start Date: 11/16/23 Status: Ordered Repeat number: 1 Vimpat 100 mg oral tablet 1 tablet = 100 mg, By Mouth, 2 times a day, # 180 tablet, 2 Refills, Maintenance, 12/01/23 4:55:00 PMEDT, Tablet, [facility], Partial fill upon patient request if the prescription is for a schedule II opioid drug., 175.2, cm, 11/16/23 10:52:00 EDT, Height Start Date: 12/01/23 Status: Ordered Quantity: 180.0 Unit: tablet Repeat number: 3 Vitamin B-12 500 mcg oral tablet 1 tablet = 500 mcg, By Mouth, Daily, # 30 tablet, 0 Refills, Maintenance, 07/20/23 11:11:00 AM EST, Tablet, Partial fill upon patient request if the prescription is for a schedule II opioid drug. Start Date: 07/20/23 Status: Ordered Quantity: 30.0 Unit: tablet Repeat number: 1 Vitamin D3 1000 intl units oral tablet 1 tablet = 25 mcg, By Mouth, Daily, # 30 tablet, 0 Refills, Maintenance, 07/20/23 11:11:00 AM EST, Tablet, Partial fill upon patient request if the prescription is for a schedule II opioid drug. Start Date: 07/20/23 Status: Ordered Quantity: 30.0 Unit: tablet Repeat number: 1 Xarelto 20 mg oral tablet 1 tablet = 20 mg, By Mouth, Daily in PM, # 30 tablet, 0 Refills, Maintenance, 07/20/23 11:09:00 AM EST, Tablet, Partial fill upon patient request if the prescription is for a schedule II opioid drug. Start Date: 07/20/23 Status: Ordered Quantity: 30.0 Unit: tablet Repeat number: 1 Problem List Condition Confirmation Course Effective Dates Status Health St [facility] Informant Obese class I Confirmed Active Social History Social History Type Response Smoking Status Never (less than 100 in lifetime) entered on: 07/20/23 Sex Sex Representation Male (finding) Patient Care team information Care Team Personnel Name: Jak Soto MD, Kristen Mcguire Position: [facility] Outreach Member Role: PCP Address: [address] [place] [address] Telecom: Care Team Related Persons Name: TIFFANY RAHMAN Insurance Providers Guarantor name: JULIETTE MCKEON Health Plan Information #: 1 Payer: JUAN Member Number: JUAN Policy Number: NA Group Number: JUAN Health Plan Information #: 2 Payer: [facility] Member Number: NA Policy Number: NA Group Number: [id number]
[2024-05-28 22:11] LABS: MANUAL DIFF FLAG NO
[2024-05-28 22:12] LABS: Basophils Percent Auto 0.3 % (0-2); Eosinophils Absolute Auto 0.2 X10*3/uL (0.0-0.4); Eosinophils Percent Auto 1.6 % (0-4); Hematocrit 42.2 % (42.0-52.0); Hemoglobin 14.6 g/dl (14.0-18.0); Imm Gran Abs Auto 0.04 X10*3/uL (0.00-0.03); Imm Gran Pct Auto 0.3 % (0.0-0.4); Lymphocytes Absolute Auto 3.9 X10*3/uL (1.2-4.9); Lymphocytes Percent Auto 34.3 % (20-40); Mean Corpuscular HGB Conc 34.6 g/dl (31.0-36.0); Mean Corpuscular Hemoglobin 31.1 pg (27.0-33.0); Mean Platelet Volume 9.5 fL (9.4-12.4); Monocytes Absolute Auto 1.2 X10*3/uL (0.1-1.2); Monocytes Percent Auto 10.1 % (2-11); Neutrophils Absolute Auto 6.1 x10*3/uL (2.0-8.3); Neutrophils Percent Auto 53.4 % (45-73); Platelet Count 214 X10*3/uL (160-400); Red Blood Count 4.69 X10*6/uL (4.60-5.80); Red Cell Distribution Width 12.7 % (11.0-16.0); White Blood Count 11.5 X10*3/uL (4.8-10.8)
[2024-05-28 22:18] LABS: INTERNATIONAL NORM RATIO 1.8 (0.9-1.1); Prothrombin Time 21.1 SEC (10.9-12.4)
[2024-05-28 22:18] LABS: Appearance Urine Clear; Color Urine Yellow; Glucose Urine UA Negative (Negative); Leukocyte Esterase Urine Negative (Negative); Nitrite Urine Negative (Negative); PH 5.5 (5.0-9.0); Urine Blood Negative (Negative); Urine Ketones Negative (Negative); Urine Protein Negative (Neg-Trace)
[2024-05-28 22:21] LABS: Venous Blood Gas Refer to POC result
[2024-05-28 22:21] LABS: VBG Base Excess 0.6 mmol/L; VBG HCO3 26 mmol/L (22-26); VBG pCO2 46 mmHg; VBG pH 7.35 (7.32-7.43); VBG pO2 52 mmHg
[2024-05-28 22:29] LABS: Ethanol < 10 mg/dL
[2024-05-28 22:29] LABS: Amphetamine Screen Urine Not Detected (Not Detect); Barbiturates, Urine Not Detected (Not Detect); Benzodiazepines Screen Urine Not Detected (Not Detect); Buprenorphine Scr Not Detected (Not Detect); Cannabinoid Screen Urine Not Detected (Not Detect); Cocaine Screen Urine Not Detected (Not Detect); Fentanyl, urine Not Detected (Not Detect); Methadone Screen, Urine Not Detected (Not Detect); Opiate Screen Urine Not Detected (Not Detect); Oxycodone Screen Urine Not Detected (Not Detect); Phencyclidine Screen Urine Not Detected (Not Detect)
[2024-05-28 22:30] LABS: Alanine Aminotransferase 16 U/L (0-40); Albumin Level 4.2 g/dL (3.5-5.0); Alkaline Phosphatase 87 U/L (39-117); Anion Gap 14 (12-20); Aspartate Amino Transferase 24 U/L (5-37); Bilirubin Direct 0.1 mg/dL (0.0-0.5); Bilirubin Total 0.3 mg/dL (0.0-1.0); Blood Urea Nitrogen 22 mg/dL (9-16); Calcium 9.4 mg/dL (8.4-10.2); Carbon Dioxide 25 mmol/L (22-29); Chloride 104 mmol/L (96-108); Creatinine Clr Calc Pharmacy 84.4; Estimated Glomerular Filt Rate > 60; Glucose Random 124 mg/dL (60-115); Magnesium 1.8 mg/dL (1.6-2.6); Potassium 3.9 mmol/L (3.3-5.1); Sodium 139 mmol/L (135-145); Total Protein 7.5 g/dL (6.5-8.0)
[2024-05-28 22:31] LABS: Acetaminophen LAB < 3 mcg/mL (<30); Salicylate < 5.0 mg/dL (15-30)
[2024-05-28 22:37] LABS: Lactic Acid 3.4 mmol/L (0.5-2.0); Troponin-I High Sensitivity < 2.7 ng/L (<3.5-35.0)
--- NOTE | 2024-05-28 22:39 | ED_ITS ---
HPI - General Adult General Chief complaint: General Medical Stated complaint: Accidentally drank Fabuloso cleaning product Time Seen by Provider: 05/28/24 21:13 Source: patient and family Mode of arrival: ambulatory Limitations: no limitations History of Present Illness ED Provider: Dr. Rose Zavala HPI narrative: Patient comes to the emergency room complaining that he accidentally drank a sip of a floor coverings installer called Fabuloso. Patient states that he has several bottles in his room, 1 of them is a bottle of the carbon cleaner that he uses 2 clean his urinal and another bottle of water. Patient says that last night, it was dark, he exited put the bottle of a below so in his cup redd think it was his water. Later in the day, patient took his scheduled medications and thinking that he was sipping water, grab his cup redd and drank a sip of Fabuloso. Patient states that he drank milk and then tried to make himself throw up but was not successful. Patient states that he has a bit of burning sensation in his abdomen but otherwise feels well. Patient is adamant he did not mean to hurt himself in any way. Related Data Home Medications ?Medication ?Instructions ?Recorded ?Confirmed carvedilol 3.125 mg tablet 3.125 mg PO BID@1200,2100 01/01/21 12/28/23 cholecalciferol (vitamin D3) 50 50 mcg PO DAILY@1200 01/01/21 12/28/23 mcg (2,000 unit) capsule losartan 50 mg tablet 50 mg PO BEDTIME 01/01/21 12/28/23 omeprazole 20 mg capsule,delayed 20 mg PO BID@0630,1630 01/01/21 12/28/23 release paroxetine HCl 10 mg tablet 10 mg PO DAILY@1200 01/01/21 12/28/23 phenytoin sodium extended 100 mg 200 mg PO BID@1200,2100 01/01/21 12/28/23 capsule atorvastatin 40 mg tablet 40 mg PO DAILY@119911/25/22 12/28/23 albuterol sulfate 90 mcg/actuation 2 puff inhalation Q4H PRN wheezing 01/20/23 12/28/23 aerosol inhaler (Ventolin HFA) carbidopa 25 mg-levodopa 100 mg tab PO 12/28/23 12/28/23 tablet dulaglutide 0.75 mg/0.5 mL mg subcut 12/28/23 12/28/23 subcutaneous pen injector (Trulicity) Previous Rx's ?Medication ?Instructions ?Recorded alcohol swabs 1 pad topical QIDACHS #100 ea 11/25/22 blood sugar diagnostic (FreeStyle #100 ea 11/25/22 Lite Strips) blood-glucose meter (FreeStyle #1 ea 11/25/22 Lite Meter kit) flecainide 50 mg tablet 50 mg PO Q12H #60 tabs 11/25/22 glipizide 5 mg tablet 5 mg PO BIDWM #60 tabs 11/25/22 lancets 28 gauge (FreeStyle #100 ea 11/25/22 Lancets) metformin 500 mg tablet 500 mg PO BIDWM #60 tabs 11/25/22 rivaroxaban 20 mg tablet (Xarelto) 20 mg PO DAILY #30 tabs 11/25/22 levothyroxine 50 mcg tablet 50 mcg PO QAM #30 tabs 04/26/24 Allergies Allergy/AdvReac Type Severity Reaction Status Date / Time aspirin [ASPIRIN] Allergy Unknown ITCHING Verified 05/28/24 21:15 penicillin G Allergy Unknown Unknown Verified 05/28/24 21:15 Penicillins [PENICILLINS] Allergy Unknown SWELLING Verified 05/28/24 21:15 Review of Systems 2 Review of Systems: Constitutional : No Weight loss, No Fever, No Chills, No Night Sweats, No Fatigue, No Malaise ENT/Mouth : No Hearing loss, No Ear Pain, No Nasal Congestion, No Sinus Pain, No Hoarseness, No sore throat, No Rhinorrhea, No Swallowing Difficulty Eyes: No Eye Pain, No Swelling, No Redness, No Foreign Body, No Discharge, No Vision Changes Cardiovascular : No Chest Pain, No SOB, No Dyspnea on Exertion, No Orthopnea, No Edema, No Palpitations Respiratory : No Cough, No Sputum, No Wheezing, No Smoke Exposure, No Dyspnea Gastrointestinal : Epigastric burning sensation, No Nausea, No Vomiting, No Diarrhea, No Constipation, No abdominal Pain, No Hematochezia, No Melena Genitourinary : no irregular bleeding, No Dysuria, No Urinary Frequency, No Hematuria, No Urinary Incontinence, No Urgency, No Flank Pain, No Urinary Flow Changes, No Hesitancy Musculoskeletal : No joint pain, No Myalgias, No Joint Swelling Skin : No Skin Lesions, No rash Neuro : No Weakness, No Numbness, No Paresthesias, No Loss of Consciousness, No Dizziness, No Headache Psych : No Anxiety/Panic, No Depression, No SI/HI/AH/VH, No Social Issues, Heme/Lymph: No Bruising, No Bleeding,No Lymphadenopathy Endocrine : No Polyuria, No Polydipsia, No Temperature Intolerance [facility] Past Medical History Medical History Atrial fibrillation with RVR Afib COVID-19 Asthma Epilepsy Vitamin D deficiency Hypothyroidism Multinodular thyroid Surgical History Hx of cardiac cath Family History Family History Mother Heart problem Father Hypertension Social History Social History Alcohol intake: never Patient Tobacco Use Status: Never used Tobacco Smoked in Last 30 Days: No Use of substances other than those prescribed or required for medical reasons: No Advance Directives: No Advance Directives Information Provided: No service: No Current occupational status: disabled Current occupation: Right hand dominant Physical Exam ED Vital Signs: Vital Signs - 24 hr 05/28/24 21:09 05/28/24 21:28 05/28/24 23:52 Temperature 97.9 F 98.9 F 98.9 F Pulse Rate 88 92 85 Respiratory Rate 18 17 16 Blood Pressure 144/83 H 137/72 158/89 H Pulse Oximetry 97 97 100 Oxygen Delivery Method Room Air Room Air Room Air 05/29/24 00:37 Temperature 97.9 F Pulse Rate 75 Respiratory Rate 16 Blood Pressure 137/72 Pulse Oximetry 97 Oxygen Delivery Method Room Air BMI result Body Mass Index 32.6 Const Other: Appearance: Alert. Oriented X3. No acute distress. Well-appearing Eyes: Pupils equal, round and reactive to light. ENT: Pharynx normal. Neck: Normal inspection. Neck supple. No lymph nodes noted. No crepitus CVS: Normal heart rate and rhythm. Pulses normal. Normal S1 and S2 Respiratory: No respiratory distress. Breath sounds normal. No Wheezing. No rales Abdomen: Soft and nontender. No rigidity. No distention. Skin: Skin warm and dry. Normal skin color. Normal skin turgor. Extremities: No lower extremity edema. No Lacerations. No Rash Neuro: Oriented X 3. No motor deficit. No sensory deficit. Moving all extremities. No slurred speech. CN 2 through 12 grossly intact Psych: calm, cooperative, normal affect Medications Administered Discontinued Medications Generic Name Dose Route Start Last Admin Trade Name Reynaldoq PRN Reason Stop Dose Admin Famotidine 20 mg 05/28/24 22:45 05/28/24 22:49 Famotidine/Pf 20 Mg/2 Ml Vial IVPUSH 05/28/24 22:46 20 mg ONCE ONE Administration Sodium Chloride 1,000 mls @ 999 mls/hr 05/28/24 22:39 05/29/24 00:15 Ns IVCONT 05/28/24 23:39 Infused .Q1H1M ONE Infusion Medical Decision Making Medical Decision Making [facility] Narrative: -poison control has been contacted: No further recommendations. -patient's hematology and chemistry within normal limits. However, lactic acid was 3.4. We do not have any previous lactic acid for comparison. Patient will be receiving IV fluids and then we will recheck lactic acid -patient complaining of mild burning sensation, patient will also be given a dose of famotidine. -my interpretation of EKG: Normal sinus rhythm, heart rate 88, no ST segment depression or elevation, no T-wave inversion, QTC 440 After 1 L of IV fluids, patient lactic acid back to normal, patient feeling much better. Patient ready for discharge Differential Diagnosis Differential Diagnoses: The differential diagnosis associated with the presentation includes (Accidental cleaning agent ingestion, gastritis, dehydration) Admission/Observation Consideration of admission/observation: Escalation of care including admission/observation considered (Given patient's elevated lactic acid, observation was considered) Lab Data [facility] Lab Attestation statement: I reviewed the patient's lab results. 05/28/24 22:04 05/28/24 22:04 Labs: Lab Results 05/28/24 05/28/24 05/28/24 Range/Units 22:04 22:08 22:09 WBC 11.5 H (4.8-10.8) X10*3/uL RBC 4.69 (4.60-5.80) X10*6/uL Hgb 14.6 (14.0-18.0) g/dl Hct 42.2 (42.0-52.0) % MCV 90.0 (80.0-98.0) fL MCH 31.1 (27.0-33.0) pg MCHC 34.6 (31.0-36.0) g/dl RDW 12.7 (11.0-16.0) % Plt Count 214 (160-400) X10*3/uL MPV 9.5 (9.4-12.4) fL Immature Gran % (Auto) 0.3 (0.0-0.4) % Neut % (Auto) 53.4 (45-73) % Lymph % (Auto) 34.3 (20-40) % [place] % (Auto) 10.1 (2-11) % Eos % (Auto) 1.6 (0-4) % Baso % (Auto) 0.3 (0-2) % Lymph # (Auto) 3.9 (1.2-4.9) X10*3/uL [place] # (Auto) 1.2 (0.1-1.2) X10*3/uL Eos # (Auto) 0.2 (0.0-0.4) X10*3/uL Baso # (Auto) 0.0 (0.0-0.2) X10*3/uL Abs Immat Gran (auto) 0.04 H (0.00-0.03) X10*3/uL Absolute Neuts (auto) 6.1 (2.0-8.3) x10*3/uL Absolute Nucleated RBC 0.000 (0.0-0.012) X10*3/uL Nucleated RBC % (auto) 0.0 (0.0-0.2) /100WBC PT 21.1 H (10.9-12.4) SEC INR 1.8 H (0.9-1.1) VBG pH 7.35 (7.32-7.43) VBG pCO2 46 mmHg VBG pO2 52 mmHg VBG HCO3 26 (22-26) mmol/L VBG O2 Saturation 79.0 % VBG Base Excess 0.6 mmol/L Sodium 139 (135-145) mmol/L Potassium 3.9 (3.3-5.1) mmol/L Chloride 104 (96-108) mmol/L Carbon Dioxide 25 (22-29) mmol/L Anion Gap 14 (12-20) BUN 22 H (9-16) mg/dL Creatinine 1.09 (0.5-1.4) mg/dL Estim Creat Clear Calc 84.4 Estimated GFR > 60 Random Glucose 124 H (60-115) mg/dL Lactic Acid 3.4 H* (0.5-2.0) mmol/L Lactic Acid F/U @ 2Hr (0.5-2.0) mmol/L Calcium 9.4 (8.4-10.2) mg/dL Magnesium 1.8 (1.6-2.6) mg/dL Total Bilirubin 0.3 (0.0-1.0) mg/dL Direct Bilirubin 0.1 (0.0-0.5) mg/dL AST 24 (5-37) U/L ALT 16 (0-40) U/L Alkaline Phosphatase 87 (39-117) U/L Troponin I High Sens < 2.7 (<3.5-35.0) ng/L Total Protein 7.5 (6.5-8.0) g/dL Albumin 4.2 (3.5-5.0) g/dL Urine Color Yellow Urine Appearance Clear Urine pH 5.5 (5.0-9.0) Ur Specific [place] 1.010 (1.005-1.025) Urine Protein Negative (Neg-Trace) mg/dL Urine Glucose (UA) Negative (Negative) mg/dL Urine Ketones Negative (Negative) mg/dL Urine Blood Negative (Negative) Urine Nitrite Negative (Negative) Ur Leukocyte Esterase Negative (Negative) Salicylates < 5.0 L (15-30) mg/dL Urine Opiates Screen Not Detected (Not Detect) Ur Buprenorphine Scrn Not Detected (Not Detect) ng/mL Ur Oxycodone Screen Not Detected (Not Detect) ng/mL Urine Methadone Screen Not Detected (Not Detect) ng/mL Urine Fentanyl Screen Not Detected (Not Detect) Acetaminophen < 3 (<30) mcg/mL Ur Barbiturates Screen Not Detected (Not Detect) Ur Phencyclidine Scrn Not Detected (Not Detect) Ur Amphetamines Screen Not Detected (Not Detect) U Benzodiazepines Scrn Not Detected (Not Detect) Urine Cocaine Screen Not Detected (Not Detect) U Marijuana (THC) Screen Not Detected (Not Detect) Ethyl Alcohol < 10 mg/dL 05/29/24 Range/Units 00:19 WBC (4.8-10.8) X10*3/uL RBC (4.60-5.80) X10*6/uL Hgb (14.0-18.0) g/dl Hct (42.0-52.0) % MCV (80.0-98.0) fL MCH (27.0-33.0) pg MCHC (31.0-36.0) g/dl RDW (11.0-16.0) % Plt Count (160-400) X10*3/uL MPV (9.4-12.4) fL Immature Gran % (Auto) (0.0-0.4) % Neut % (Auto) (45-73) % Lymph % (Auto) (20-40) % [place] % (Auto) (2-11) % Eos % (Auto) (0-4) % Baso % (Auto) (0-2) % Lymph # (Auto) (1.2-4.9) X10*3/uL [place] # (Auto) (0.1-1.2) X10*3/uL Eos # (Auto) (0.0-0.4) X10*3/uL Baso # (Auto) (0.0-0.2) X10*3/uL Abs Immat Gran (auto) (0.00-0.03) X10*3/uL Absolute Neuts (auto) (2.0-8.3) x10*3/uL Absolute Nucleated RBC (0.0-0.012) X10*3/uL Nucleated RBC % (auto) (0.0-0.2) /100WBC PT (10.9-12.4) SEC INR (0.9-1.1) VBG pH (7.32-7.43) VBG pCO2 mmHg VBG pO2 mmHg VBG HCO3 (22-26) mmol/L VBG O2 Saturation % VBG Base Excess mmol/L Sodium (135-145) mmol/L Potassium (3.3-5.1) mmol/L Chloride (96-108) mmol/L Carbon Dioxide (22-29) mmol/L Anion Gap (12-20) BUN (9-16) mg/dL Creatinine (0.5-1.4) mg/dL Estim Creat Clear Calc Estimated GFR Random Glucose (60-115) mg/dL Lactic Acid (0.5-2.0) mmol/L Lactic Acid F/U @ 2Hr 1.3 (0.5-2.0) mmol/L Calcium (8.4-10.2) mg/dL Magnesium (1.6-2.6) mg/dL Total Bilirubin (0.0-1.0) mg/dL Direct Bilirubin (0.0-0.5) mg/dL AST (5-37) U/L ALT (0-40) U/L Alkaline Phosphatase (39-117) U/L Troponin I High Sens (<3.5-35.0) ng/L Total Protein (6.5-8.0) g/dL Albumin (3.5-5.0) g/dL Urine Color Urine Appearance Urine pH (5.0-9.0) Ur Specific [place] (1.005-1.025) Urine Protein (Neg-Trace) mg/dL Urine Glucose (UA) (Negative) mg/dL Urine Ketones (Negative) mg/dL Urine Blood (Negative) Urine Nitrite (Negative) Ur Leukocyte Esterase (Negative) Salicylates (15-30) mg/dL Urine Opiates Screen (Not Detect) Ur Buprenorphine Scrn (Not Detect) ng/mL Ur Oxycodone Screen (Not Detect) ng/mL Urine Methadone Screen (Not Detect) ng/mL Urine Fentanyl Screen (Not Detect) Acetaminophen (<30) mcg/mL Ur Barbiturates Screen (Not Detect) Ur Phencyclidine Scrn (Not Detect) Ur Amphetamines Screen (Not Detect) U Benzodiazepines Scrn (Not Detect) Urine Cocaine Screen (Not Detect) U Marijuana (THC) Screen (Not Detect) Ethyl Alcohol mg/dL Critical Care Time Critical Care Time Critical Care Time: Yes Total Critical Care Time: 30 Attestation: I have personally provided critical care time. Time includes review of lab data, radiology results, discussion with consultants, and monitoring for potential decompensation. Intervention performed as documented. Discharge Plan Discharge Clinical Impression: Accidental ingestion of substance, Acidosis, lactic Patient Disposition: Home, Self-Care Additional Instructions: Please follow-up with your primary care physician tomorrow. If you have any worsening or new symptoms, please return to the emergency room or call 911 Prescriptions: No Action levothyroxine 50 mcg tablet 50 mcg PO QAM Qty: 30 5RF atorvastatin 40 mg tablet 40 mg PO DAILY@1200 metformin 500 mg Tablet 500 mg PO BIDWM Qty: 60 0RF glipizide 5 mg Tablet 5 mg PO BIDWM Qty: 60 0RF flecainide 50 mg tablet 50 mg PO Q12H Qty: 60 0RF Xarelto 20 mg tablet 20 mg PO DAILY Qty: 30 0RF Rx Instructions: must administer with evening meal (DME) FreeStyle Lite Strips Strip Qty: 100 0RF Rx Instructions: Test four times a day or as directed. (DME) blood-glucose meter [FreeStyle Lite Meter] Kit Qty: 1 0RF Rx Instructions: As Directed alcohol swabs Pads, Medicated 1 pad TOPICAL QIDACHS Qty: 100 0RF Rx Instructions: Use four times a day or as directed. (DME) lancets [FreeStyle Lancets] 28 gauge misc Qty: 100 0RF Rx Instructions: Test four times a day or as directed. carvedilol 3.125 mg tablet 3.125 mg PO BID@1200,2100 losartan 50 mg tablet 50 mg PO BEDTIME cholecalciferol (vitamin D3) 50 mcg (2,000 unit) capsule 50 mcg PO DAILY@1200 omeprazole 20 mg capsule,delayed release(DR/EC) 20 mg PO BID@0630,1630 phenytoin sodium extended 100 mg capsule 200 mg PO BID@1200,2100 paroxetine HCl 10 mg tablet 10 mg PO DAILY@1200 albuterol sulfate [Ventolin HFA] 90 mcg/actuation HFA aerosol inhaler 2 puff inhalation Q4H PRN (Reason: wheezing) Trulicity 0.75 mg/0.5 mL pen injector subcut carbidopa-levodopa 25-100 mg tablet PO Print Language: Vietnamese
[2024-05-28] MEDS: 0.9 % Sodium Chloride 1,000 ML 999 ML IVCONT (22:47)
[2024-05-28] MEDS: Famotidine/PF 20 MG/2 ML VIAL IVPUSH (22:49)
[2024-05-28 23:52] VITALS: BP 158/89; PULSE 85; RESP 16; TEMP 37.2; O2SAT 100
[2024-05-29 00:09] LABS: Reflex Lactate? Lactic Acid Added
[2024-05-29 00:37] VITALS: BP 137/72; PULSE 75; RESP 16; TEMP 36.6; O2SAT 97
[2024-05-29 00:46] LABS: ~Lactic Acid-LAB USE ONLY 1.3 mmol/L (0.5-2.0)
[2024-05-29 00:53] VITALS: BP 137/72; PULSE 75; RESP 16; TEMP 36.6; O2SAT 97
[2024-05-29 01:00] VITALS: BP 140/74; PULSE 75; RESP 15; TEMP 36.6; O2SAT 99
== END 2024-05-29 01:00 | disposition home or self-care (01) ==
PROVIDERS: Emergency Provider Emergency Medicine; PCP Student in an Organized Health Care Education/Training Program
DX: T65.891A Toxic effect of other specified substances, accidental (unintentional), initial encounter (principal); R20.8 Other disturbances of skin sensation; E87.20 Acidosis, unspecified; Y92.098 Other place in other non-institutional residence as the place of occurrence of the external cause; Z51.81 Encounter for therapeutic drug level monitoring; Z79.899 Other long term (current) drug therapy
CPT/HCPCS: 36415; 80048; 80076; 80143; 80179; 80307; 81003; 82803; 83605; 83735; 84484; 85025; 85610; 93005; 96361; 96374; 99284; 99285

== ENCOUNTER → 2024-05-28 21:13 | Outpatient (BNV) | payer OTHER, SELFPAY | PROVIDERS: Emergency Provider Emergency Medicine; PCP Student in an Organized Health Care Education/Training Program; Visit Provider Internal Medicine Cardiovascular Disease | DX: T50.901A Poisoning by unspecified drugs, medicaments and biological substances, accidental (unintentional), initial encounter (principal) | CPT/HCPCS: 93010 ==

== ENCOUNTER 2024-07-12 15:05 | Outpatient (AMB) | payer OTHER, SELFPAY ==
--- NOTE | 2024-07-12 15:06 | A.OFFVIS_ITS ---
Vital Signs 07/12/24 15:08 Height 5 ft 10 in Weight 225 lb 12.054 oz BMI 32.4 BP 110/64 Blood Pressure Location Rt brachial Position Sitting Pulse 74 Pulse Source Pulse Oximeter Intake Visit Reasons: MNG Intake Note: Patient present today for NTMNG follow up visit. Compliance Engineer Products Required: Yes Compliance Engineer Products Language: Supervisor Force Adjustment Services: Compliance Engineer Products Present Compliance Engineer Products Name: Crow Information Interpreted: non-clinical & clinical Accompanied by: Self / Same As Patient Allergies aspirin [ASPIRIN] Allergy (Unknown, Verified 07/12/24 15:10) ITCHING penicillin G Allergy (Unknown, Verified 07/12/24 15:10) Unknown Penicillins [PENICILLINS] Allergy (Unknown, Verified 07/12/24 15:10) SWELLING Medication List - Last Reconciled 07/12/24 by Buck Mandujano MD albuterol sulfate 90 mcg/actuation (Ventolin HFA) 2 puffs inhalation Q4H PRN alcohol swabs 1 pad topical QIDACHS atorvastatin 40 mg PO DAILY@1200 blood sugar diagnostic (FreeStyle Lite Strips) Test four times a day or as directed. blood-glucose meter (FreeStyle Lite Meter kit) As Directed carbidopa-levodopa 25-100 mg tabs PO carvedilol 3.125 mg PO BID@1200,2100 cholecalciferol (vitamin D3) 50 mcg PO DAILY@1200 dulaglutide (Trulicity) mg subcut flecainide 50 mg PO Q12H glipizide 5 mg PO BIDWM lancets (FreeStyle Lancets) Test four times a day or as directed. levothyroxine 50 mcg PO QAM losartan 50 mg PO BEDTIME metformin 500 mg PO BIDWM omeprazole 20 mg PO BID@0630,1630 paroxetine HCl 10 mg PO DAILY@1200 phenytoin sodium extended 200 mg PO BID@1200,2100 rivaroxaban (Xarelto) 20 mg PO DAILY HPI Comments Details: 63 YO M with PMHx seizure disorder who is seen in F/U for NTMNG and Hypothyroidism. The patient last saw Dr. Lomeli on 12/31/2021 Currently denies any compressive symptoms. Denies any symptoms of hyper or hypothyroidism. He takes Levothyroxine 25 mcg PO daily. Takes this in the morning with just water. Waits 1 hour to eat. Takes all of his other medications later in the day. Denies any history of head or neck irradiation. Denies any family history of thyroid cancer. Had thyroid US which revealed 2 subcentimeter nodules. Has never had a biopsy of these nodules. Thyroid US 11/27/2020: Right Thyroid Lobe: 4.4 x 1.5 x 1.1 cm, volume 3.8 mL. Previously 4.5 x 1.6 x 1.1 cm, volume 4.1 mL. Parenchyma: The gland echotexture is homogeneous. Thyroid vascularity is normal. Left Thyroid Lobe: 4.8 x 1.3 x 1.5 cm, volume 4.9 mL. Previously 4.7 x 1.6 x 1.6 cm, volume 6.3 mL. Parenchyma: The gland echotexture is homogeneous. Thyroid vascularity is normal. Isthmus: 0.3 cm in maximum AP dimension. Previously 0.3 cm. Estimated total number of nodules greater than or equal to 1 cm: 0. Machine Tool Rebuilder nodules are described as follows: 1. Location: Right anterior mid. Size: 0.3 x 0.2 x 0.2 cm, volume 0.01 mL. Previously: 0.3 x 0.2 x 0.3 cm, volume 0.01 mL. Nodule characteristics: Composition: Cannot be determined (2). Echogenicity: Hypoechoic (2). Shape: Not taller than wide (0). Margins: Smooth (0). Echogenic Foci: None (0). ACR TI-RADS total points: 4 ACR TI-RADS category: 4 Comparison: No significant change. 2. Location: Left inferior. Size: 0.9 x 0.6 x 0.6 cm, volume 0.17 mL. Previously: 0.6 x 0.5 x 0.4 cm, volume 0.06 mL. Nodule characteristics: Composition: Cystic(0). ACR TI-RADS total points: 0 ACR TI-RADS category: 1 Comparison: No significant change. NODES: No lymphadenopathy is seen in the tissue surrounding the thyroid gland. Labs: Laboratory Tests 12/26/21 09:35 25-OH Vitamin D Total 39.7 TSH 2.11 Free T4 0.79 Currently on 50 mcg levothyroxine . Repeat ultrasound showed no change in the size of the left inferior thyroid nodule [facility] Medical History Atrial fibrillation with RVR Afib COVID-19 Asthma Epilepsy Vitamin D deficiency Hypothyroidism Multinodular thyroid Surgical History Hx of cardiac cath Family History Mother Heart problem Father Hypertension Social History Alcohol intake: never Patient Tobacco Use Status: Never used Tobacco service: No Current occupational status: disabled Current occupation: Right hand dominant Physical Exam Vital Signs: BMI result Body Mass Index 32.4 Const Other: Thyroid gland is normal size weighs about 15 g. There are no thyroid nodules palpated. Assessment & Plan Assessment & Plan (1) Hypothyroidism: Code(s): E03.9 - Hypothyroidism, unspecified Category: Medical Qualifiers: Hypothyroidism type: unspecified Qualified Code(s): E03.9 - Hypothyroidism, unspecified Plan: This 62-year-old male with a history of hypothyroidism currently on 50 mcg levothyroxine. He appears to be clinically and biochemically euthyroid Plan is to continue the current therapy. (2) Multinodular thyroid: Code(s): E04.2 - Nontoxic multinodular goiter Category: Medical Plan: Multinodular goiter with subcentimeter nodules with ultrasound with repeat ultrasound showing no change in the size of the nodules . Will have patient follow up with Dr. Joseph an isolation washer in our practice with expertise in thyroid ultrasound Coding Level of Care Code Est Pt Level 3 (35524) Diagnoses Hypothyroidism, unspecified type E03.9 Hypothyroidism type: unspecified Multinodular thyroid E04.2
[2024-07-12 15:08] VITALS: BP 110/64; PULSE 74; BMI 32.4
== END 2024-07-12 15:24 | disposition home or self-care (01) ==
PROVIDERS: PCP Student in an Organized Health Care Education/Training Program; Visit Provider Internal Medicine Endocrinology, Diabetes & Metabolism
DX: E03.9 Hypothyroidism, unspecified (principal); E04.2 Nontoxic multinodular goiter
CPT/HCPCS: 99213

== ENCOUNTER → 2024-07-12 15:05 | Outpatient (BNVA) | payer OTHER, SELFPAY | PROVIDERS: PCP Student in an Organized Health Care Education/Training Program; Visit Provider Internal Medicine Endocrinology, Diabetes & Metabolism | DX: E03.9 Hypothyroidism, unspecified (principal); E04.2 Nontoxic multinodular goiter | CPT/HCPCS: 99212 ==

== ENCOUNTER 2024-11-27 07:36 | Emergency (ER) | payer MEDICARE, MEDICAID, SELFPAY ==
--- NOTE | 2024-11-27 | ECG_ITS ---
Test Reason : cp Blood Pressure : */* mmHG Vent. Rate : 73 BPM Atrial Rate : 73 BPM P-R Int : 174 ms QRS Dur : 84 ms QT Int : 396 ms P-R-T Axes : 12 2 -13 degrees QTcB Int : 436 ms Normal sinus rhythm Minimal voltage criteria for LVH, may be normal variant ( R in aVL ) Nonspecific ST and T wave abnormality Abnormal ECG When compared with ECG of 28-May-2024 21:38, Inverted T waves have replaced nonspecific T wave abnormality in Inferior leads T wave inversion now evident in Anterior leads Referred By: Generic ED Physician Electronically Signed By: DAPHNE DAO
--- NOTE | ~2024-11-27 | XR_ITS ---
EXAMINATION: XR CHEST CLINICAL INFORMATION: chest pain COMPARISON: None available. TECHNIQUE: Frontal view of the chest was obtained. FINDINGS: No significant abnormality is noted involving the heart, lungs, mediastinum, bony thorax or soft tissues. XR/XR chest 1V IMPRESSION: Unremarkable chest examination. Electronically signed by: Irving Stacy MD 11/27/2024 08:38 AM EDT
[2024-11-27 07:46] VITALS: BP 127/77; PULSE 72; RESP 16; TEMP 36.3; O2SAT 98; BMI 31.8
--- NOTE | 2024-11-27 07:56 | PC.NURSE ---
technical staff engineer Crow utilized for triage.
--- NOTE | 2024-11-27 08:14 | PC.NURSE ---
American speaking patient. Patient presents to ED c/o non radiating c/p. Pain rated 6/10 and it started this morning at 0630. Denies SOB, denies dizziness. VSS and up to date. Patient is on xarelto. Blood collected/sent to lab. 18G placed in right forearm. Patient on cardiac rehab nurse - NSR. CXR completed, results pending.
[2024-11-27 08:17] VITALS: BP 127/77; PULSE 72; RESP 16; TEMP 36.3; O2SAT 98
[2024-11-27 08:18] LABS: MANUAL DIFF FLAG NO
[2024-11-27 08:19] LABS: Basophils Percent Auto 0.2 % (0-2); Eosinophils Absolute Auto 0.2 X10*3/uL (0.0-0.4); Eosinophils Percent Auto 2.5 % (0-4); Hematocrit 38.6 % (42.0-52.0); Hemoglobin 13.6 g/dl (14.0-18.0); Imm Gran Abs Auto 0.02 X10*3/uL (0.00-0.03); Imm Gran Pct Auto 0.2 % (0.0-0.4); Lymphocytes Absolute Auto 3.1 X10*3/uL (1.2-4.9); Lymphocytes Percent Auto 33.4 % (20-40); Mean Corpuscular HGB Conc 35.2 g/dl (31.0-36.0); Mean Corpuscular Hemoglobin 30.8 pg (27.0-33.0); Mean Corpuscular Volume 87.5 fL (80.0-98.0); Mean Platelet Volume 9.2 fL (9.4-12.4); Monocytes Absolute Auto 0.8 X10*3/uL (0.1-1.2); Neutrophils Absolute Auto 5.1 x10*3/uL (2.0-8.3); Neutrophils Percent Auto 54.7 % (45-73); Platelet Count 218 X10*3/uL (160-400); Red Blood Count 4.41 X10*6/uL (4.60-5.80); Red Cell Distribution Width 12.7 % (11.0-16.0); White Blood Count 9.3 X10*3/uL (4.8-10.8)
[2024-11-27 08:25] LABS: INTERNATIONAL NORM RATIO 1.4 (0.9-1.1); Prothrombin Time 16.6 SEC (10.9-12.4)
[2024-11-27 08:28] LABS: Partial Thromboplastin Time 35.5 SEC (26.0-36.8)
--- OUTSIDE RECORDS SUMMARY | 2024-11-27 08:30 | XMS_ITS | Encounter Summary ---
Author Organization [employer] [facility] Address [address] [place] [address] Care Team Providers Care Wearing Apparel Assembler Name Role Phone Carlotta Paulson Primary Care Provider [phone] Kristen Cedeno MD Primary Care Pro vider Encounter Details Date Type Department Care Team (Late Contact Info) Description 07/29/2022 Orders Only [facility] [address] [place] [address] Sarah Hwang LPN Social History Tobacco Use Types Packs/Day Years Used Date Smoking Tobacco: Never Assessed Sex and Gender Information Value Date Recorded Sex Assigned at Male 04/27/2022 10:35 AM EDT Legal Sex Male 10:35 AM EDT Gender Identity Male 04/27/2022 10:35 AM EDT Sexual Orientation Straight 04/27/2022 10 :35 AM EDT documented as of this encounter Plan of Treatment Upcoming Encounters Date Type Department Care Team (Late Contact Info) Description 03/30/2025 3:00 PM EDT Office Visit [facility] [address] [place] [address] Temo, Lynne, OD [address] [place] [address] documented as of this encounter Visit Diagnoses Not on filedocumented in this encounter Care Teams Wearing Apparel Assembler Relationship Specialty Start Date End Date Carlotta Paulson FNP [address] [place] [address] PCP - General Family Medicine 02/22/22 11/26/22 Kristen Cedeno MD [address] [place] [id number] PCP - General Internal Medicine 11/27/22 documented as of this encounter
[2024-11-27 08:35] LABS: Alanine Aminotransferase 17 U/L (0-40); Albumin Level 4.1 g/dL (3.5-5.0); Alkaline Phosphatase 71 U/L (39-117); Anion Gap 13 (12-20); Aspartate Amino Transferase 21 U/L (5-37); Bilirubin Total 0.6 mg/dL (0.0-1.0); Blood Urea Nitrogen 15 mg/dL (9-16); Calcium 9.2 mg/dL (8.4-10.2); Carbon Dioxide 24 mmol/L (22-29); Chloride 108 mmol/L (96-108); Creatinine Clr Calc Pharmacy 97.9; Estimated Glomerular Filt Rate > 60; Glucose Random 97 mg/dL (60-115); Magnesium 1.6 mg/dL (1.6-2.6); Potassium 3.9 mmol/L (3.3-5.1); Sodium 141 mmol/L (135-145); Total Protein 7.3 g/dL (6.5-8.0)
--- NOTE | 2024-11-27 08:39 | ED.CHESTPAIN ---
HPI - Chest Pain General Chief Complaint: Chest Pain Stated Complaint: chest pain Time Seen by Provider: 11/27/24 07:46 History of Present Illness HPI narrative: Patient is a 64-year-old male presented today with having chest pain over the right chest lasting a few sec. then had palpitation. Patient claims the palpitation was fast. It seems fairly regular lasted for a few sec then went away he does have a history of atrial fibrillation he is currently on Xarelto also history of hypertension, diabetes. I reviewed patient's previous cardiology no patient may have had a cardiac catheterization done in [place] it was grossly okay. Also history of thyroid problems. Patient is from home. No fever no chills he has been compliant with taking his medication. He has a history of Parkinson's is on carbidopa levodopa. History of AFib and he is on flecainide and carvedilol. Patient is also on diabetes medicine. No fever no chills. No diaphoresis. The symptoms resolved within a minute. No bloody stool. Related Data Home Medications ?Medication ?Instructions ?Recorded ?Confirmed carvedilol 3.125 mg tablet 3.125 mg PO BID@1200,2100 01/01/21 12/28/23 cholecalciferol (vitamin D3) 50 50 mcg PO DAILY@1200 01/01/21 12/28/23 mcg (2,000 unit) capsule losartan 50 mg tablet 50 mg PO BEDTIME 01/01/21 12/28/23 omeprazole 20 mg capsule,delayed 20 mg PO BID@0630,1630 01/01/21 12/28/23 release paroxetine HCl 10 mg tablet 10 mg PO DAILY@1200 01/01/21 12/28/23 phenytoin sodium extended 100 mg 200 mg PO BID@1200,2100 01/01/21 12/28/23 capsule atorvastatin 40 mg tablet 40 mg PO DAILY@1200 11/25/22 12/28/23 albuterol sulfate 90 mcg/actuation 2 puff inhalation Q4H PRN wheezing 01/20/23 12/28/23 aerosol inhaler (Ventolin HFA) carbidopa 25 mg-levodopa 100 mg tab PO 12/28/23 12/28/23 tablet dulaglutide 0.75 mg/0.5 mL mg subcut 12/28/23 12/28/23 subcutaneous pen injector (Trulicity) Previous Rx's ?Medication ?Instructions ?Recorded alcohol swabs 1 pad topical QIDACHS #100 ea 11/25/22 blood sugar diagnostic (FreeStyle #100 ea 11/25/22 Lite Strips) blood-glucose meter (FreeStyle #1 ea 11/25/22 Lite Meter kit) flecainide 50 mg tablet 50 mg PO Q12H #60 tabs 11/25/22 glipizide 5 mg tablet 5 mg PO BIDWM #60 tabs 11/25/22 lancets 28 gauge (FreeStyle #100 ea 11/25/22 Lancets) metformin 500 mg tablet 500 mg PO BIDWM #60 tabs 11/25/22 rivaroxaban 20 mg tablet (Xarelto) 20 mg PO DAILY #30 tabs 11/25/22 levothyroxine 50 mcg tablet 50 mcg PO QAM #30 tabs 10/11/24 Allergies Allergy/AdvReac Type Severity Reaction Status Date / Time aspirin [ASPIRIN] Allergy Unknown ITCHING Verified 11/27/24 07:49 penicillin G Allergy Unknown Unknown Verified 11/27/24 07:49 Penicillins [PENICILLINS] Allergy Unknown SWELLING Verified 11/27/24 07:49 Review of Systems Review of Systems: No fever no chills positive chest pain lasting for few sec Yes all other systems are reviewed and are negative PMFSH Past Medical History Attestation statement: The following information was validated with the patient. Medical History Atrial fibrillation with RVR Afib COVID-19 Asthma Epilepsy Vitamin D deficiency Hypothyroidism Multinodular thyroid Surgical History Hx of cardiac cath Family History Family History Mother Heart problem Father Hypertension Social History Social History Alcohol intake: never Patient Tobacco Use Status: Never used Tobacco Smoked in Last 30 Days: No Use of substances other than those prescribed or required for medical reasons: No Advance Directives: No Advance Directives Information Provided: Yes service: No Current occupational status: disabled Current occupation: Right hand dominant Physical Exam Vital Signs: Vital Signs: Last Vital Signs Temp 96.8 F 11/27/24 11:24 Pulse 62 11/27/24 11:24 Resp 12 11/27/24 11:24 BP 126/61 11/27/24 11:24 Pulse Ox 96 11/27/24 11:24 O2 Del Method Room Air 11/27/24 11:24 BMI result Body Mass Index 31.8 Appearance: Alert. Oriented X3. No acute distress. Eyes: Pupils equal, round and reactive to light. ENT: Pharynx normal. Neck: Normal inspection. Neck supple. No lymph nodes noted. No crepitus CVS: Normal heart rate and rhythm. Pulses normal. Normal S1 and S2 Respiratory: No respiratory distress. Breath sounds normal. No Wheezing. No rales Abdomen: Soft and nontender. No rigidity. No distention. good BS x4 Skin: Skin warm and dry. Normal skin color. Normal skin turgor. Extremities: No lower extremity edema. Neurovascular intact to all extremities. No Lacerations. No Rash Neuro: Oriented X 3. No motor deficit. No sensory deficit. Moving all extermities. No slurred speech Medical Decision Making Medical Decision Making [facility] Narrative: My interpretation of patient's EKG showed a sinus rhythm heart rate is 70 [place] QRS QTC normal there is no acute ST segment elevation noted. Patient is awake alert. The chest pain is atypical. It lasts for 1-2 seconds. Patient is already on blood thinners felt the risk for PE to be low. My interpretation of patient's chest x-ray was negative for pneumonia or pneumothorax. Patient's troponin x2 sets is negative atypical history no changes in EKG patient's symptoms not consistent with ACS heart score is less than 3 has a history of AFib question had a paroxysmal a small episode of atrial fibrillation causing a palpitation patient never had syncope or near syncope he is well-appearing will discharge patient home close follow-up with cardiology on an outpatient basis. Differential Diagnosis Differential Diagnoses: The differential diagnosis associated with the presentation includes ACS, atrial fibrillation, arrhythmia, PE, pneumothorax Admission/Observation Consideration of admission/observation: Escalation of care including admission/observation considered Lab Data [facility] Lab Attestation statement: I reviewed the patient's lab results. 11/27/24 08:09 11/27/24 08:09 Labs: Lab Results 11/27/24 11/27/24 Range/Units 08:09 10:58 WBC 9.3 (4.8-10.8) X10*3/uL RBC 4.41 L (4.60-5.80) X10*6/uL Hgb 13.6 L (14.0-18.0) g/dl Hct 38.6 L (42.0-52.0) % MCV 87.5 (80.0-98.0) fL MCH 30.8 (27.0-33.0) pg MCHC 35.2 (31.0-36.0) g/dl RDW 12.7 (11.0-16.0) % Plt Count 218 (160-400) X10*3/uL MPV 9.2 L (9.4-12.4) fL Immature Gran % (Auto) 0.2 (0.0-0.4) % Neut % (Auto) 54.7 (45-73) % Lymph % (Auto) 33.4 (20-40) % [place] % (Auto) 9.0 (2-11) % Eos % (Auto) 2.5 (0-4) % Baso % (Auto) 0.2 (0-2) % Lymph # (Auto) 3.1 (1.2-4.9) X10*3/uL [place] # (Auto) 0.8 (0.1-1.2) X10*3/uL Eos # (Auto) 0.2 (0.0-0.4) X10*3/uL Baso # (Auto) 0.0 (0.0-0.2) X10*3/uL Abs Immat Gran (auto) 0.02 (0.00-0.03) X10*3/uL Absolute Neuts (auto) 5.1 (2.0-8.3) x10*3/uL Absolute Nucleated RBC 0.000 (0.0-0.012) X10*3/uL Nucleated RBC % (auto) 0.0 (0.0-0.2) /100WBC PT 16.6 H D (10.9-12.4) SEC INR 1.4 H (0.9-1.1) APTT 35.5 (26.0-36.8) SEC Sodium 141 (135-145) mmol/L Potassium 3.9 (3.3-5.1) mmol/L Chloride 108 (96-108) mmol/L Carbon Dioxide 24 (22-29) mmol/L Anion Gap 13 (12-20) BUN 15 (9-16) mg/dL Creatinine 0.89 (0.5-1.4) mg/dL Estim Creat Clear Calc 97.9 Estimated GFR > 60 Random Glucose 97 (60-115) mg/dL Calcium 9.2 (8.4-10.2) mg/dL Magnesium 1.6 (1.6-2.6) mg/dL Total Bilirubin 0.6 (0.0-1.0) mg/dL AST 21 (5-37) U/L ALT 17 (0-40) U/L Alkaline Phosphatase 71 (39-117) U/L Troponin I High Sens < 2.7 < 2.7 (<3.5-35.0) ng/L Total Protein 7.3 (6.5-8.0) g/dL Albumin 4.1 (3.5-5.0) g/dL Independent Interpretation I performed an independent interpretation of an: EKG (Sinus heart rate is 70 IL QRS QTC normal no acute ST segment elevation) and Plain X-Ray (Chest x-ray negative for pneumonia pneumothorax) Radiology Impression Discussion of test interpretation with radiology: I have reviewed the radiologist's reading. External Record Review External record reviewed: Inpatient record Discharge Plan Discharge Clinical Impression: Afib, Chest pain Patient Disposition: Home, Self-Care Instructions: Chest Pain (DC) Prescriptions: No Action levothyroxine 50 mcg tablet 50 mcg PO QAM Qty: 30 5RF atorvastatin 40 mg tablet 40 mg PO DAILY@1200 metformin 500 mg Tablet 500 mg PO BIDWM Qty: 60 0RF glipizide 5 mg Tablet 5 mg PO BIDWM Qty: 60 0RF flecainide 50 mg tablet 50 mg PO Q12H Qty: 60 0RF Xarelto 20 mg tablet 20 mg PO DAILY Qty: 30 0RF Rx Instructions: must administer with evening meal (DME) FreeStyle Lite Strips Strip Qty: 100 0RF Rx Instructions: Test four times a day or as directed. (DME) blood-glucose meter [FreeStyle Lite Meter] Kit Qty: 1 0RF Rx Instructions: As Directed alcohol swabs Pads, Medicated 1 pad TOPICAL QIDACHS Qty: 100 0RF Rx Instructions: Use four times a day or as directed. (DME) lancets [FreeStyle Lancets] 28 gauge misc Qty: 100 0RF Rx Instructions: Test four times a day or as directed. carvedilol 3.125 mg tablet 3.125 mg PO BID@1200,2100 losartan 50 mg tablet 50 mg PO BEDTIME cholecalciferol (vitamin D3) 50 mcg (2,000 unit) capsule 50 mcg PO DAILY@1200 omeprazole 20 mg capsule,delayed release(DR/EC) 20 mg PO BID@0630,1630 phenytoin sodium extended 100 mg capsule 200 mg PO BID@1200,2100 paroxetine HCl 10 mg tablet 10 mg PO DAILY@1200 albuterol sulfate [Ventolin HFA] 90 mcg/actuation HFA aerosol inhaler 2 puff inhalation Q4H PRN (Reason: wheezing) Trulicity 0.75 mg/0.5 mL pen injector subcut carbidopa-levodopa 25-100 mg tablet PO Referrals: Eder Scanlon MD [Physician] - 12/04/24 Print Language: Nigerian
[2024-11-27 08:45] LABS: Troponin-I High Sensitivity < 2.7 ng/L (<3.5-35.0)
[2024-11-27 11:24] VITALS: BP 126/61; PULSE 62; RESP 12; TEMP 36; O2SAT 96
[2024-11-27 11:46] LABS: Troponin-I High Sensitivity < 2.7 ng/L (<3.5-35.0)
--- NOTE | 2024-11-27 11:58 | PC.NURSE ---
CXR performed and unremarkable. Patient ready for discharge at this time
[2024-11-27 12:07] VITALS: BP 126/61; PULSE 62; RESP 12; TEMP 36; O2SAT 96
== END 2024-11-27 12:07 | disposition home or self-care (01) ==
PROVIDERS: Emergency Provider Emergency Medicine Emergency Medical Services; PCP Student in an Organized Health Care Education/Training Program
DX: I48.91 Unspecified atrial fibrillation (principal); R07.89 Other chest pain; R94.31 Abnormal electrocardiogram [ECG] [EKG]; I10 Essential (primary) hypertension; E11.9 Type 2 diabetes mellitus without complications; Z79.899 Other long term (current) drug therapy; Z79.84 Long term (current) use of oral hypoglycemic drugs
CPT/HCPCS: 36415; 71045; 80053; 83735; 84484; 85025; 85610; 85730; 93005; 99283; 99285

== ENCOUNTER → 2024-11-27 07:40 | Outpatient (BNV) | payer MEDICAID, SELFPAY | PROVIDERS: Emergency Provider Emergency Medicine Emergency Medical Services; PCP Student in an Organized Health Care Education/Training Program; Visit Provider Internal Medicine | DX: R94.31 Abnormal electrocardiogram [ECG] [EKG] (principal); R07.9 Chest pain, unspecified | CPT/HCPCS: 93010 ==

== ENCOUNTER → 2024-11-27 08:06 | Outpatient (BNV) | payer MEDICAID, SELFPAY | PROVIDERS: Emergency Provider Emergency Medicine Emergency Medical Services; PCP Student in an Organized Health Care Education/Training Program; Visit Provider Radiology Diagnostic Radiology | DX: R07.9 Chest pain, unspecified (principal) | CPT/HCPCS: 71045 ==

== ENCOUNTER 2024-12-13 17:00 | Outpatient (RCR) | payer MEDICARE, MEDICAID, SELFPAY | END 2024-12-28 14:23 | disposition home or self-care (01) | LOC: HO.PT 17:00 | PROVIDERS: PCP Student in an Organized Health Care Education/Training Program; Visit Provider Nurse Practitioner | DX: M25.562 Pain in left knee (principal) | CPT/HCPCS: 97110; 97162 ==

== ENCOUNTER 2024-12-31 10:34 | Emergency (ER) | payer MEDICARE, MEDICAID, SELFPAY ==
--- NOTE | ~2024-12-31 | XR_ITS ---
CLINICAL HISTORY: pain 3 views lumbar spine Comparison: None provided Findings: Probable bilateral L5 pars defects. No spondylolisthesis. No acute fractures or dislocation. No significant vertebral body compression deformity. There is mild disc space narrowing. Moderate facet degenerative changes. IMPRESSION: 1. No acute fracture in the lumbar spine. 2. Mild disc and moderate facet degenerative changes. This document has been electronically signed by: Lavinia Williamson DO on 12/31/2024 13:25:10
--- NOTE | ~2024-12-31 | XR_ITS ---
CLINICAL HISTORY: pain 3 views sacroiliac joints Comparison: None provided Findings No acute fractures. No significant degenerative change. No erosions. IMPRESSION: No acute fracture, dislocation or significant degenerative changes. This document has been electronically signed by: Lavinia Williamson DO on 12/31/2024 13:27:09
[2024-12-31 10:47] VITALS: BP 135/58; PULSE 76; RESP 16; TEMP 35.8; O2SAT 96; BMI 30.4
[2024-12-31 11:16] LABS: MANUAL DIFF FLAG NO
[2024-12-31 11:17] LABS: Hematocrit 39.5 % (42.0-52.0); Hemoglobin 13.7 g/dl (14.0-18.0); Imm Gran Abs Auto 0.02 X10*3/uL (0.00-0.03); Imm Gran Pct Auto 0.2 % (0.0-0.4); Lymphocytes Absolute Auto 2.7 X10*3/uL (1.2-4.9); Mean Corpuscular HGB Conc 34.7 g/dl (31.0-36.0); Mean Corpuscular Hemoglobin 30.6 pg (27.0-33.0); Mean Corpuscular Volume 88.4 fL (80.0-98.0); NRBC Abs Auto 0.000 X10*3/uL (0.0-0.012); NRBC Pct Auto 0.0 /100WBC (0.0-0.2); Platelet Count 216 X10*3/uL (160-400); Red Blood Count 4.47 X10*6/uL (4.60-5.80); White Blood Count 8.2 X10*3/uL (4.8-10.8)
[2024-12-31 11:18] LABS: Appearance Urine Clear; Glucose Urine UA Negative (Negative); PH 5.5 (5.0-9.0); Specific Gravity - Urine >= 1.030 (1.005-1.025); UMIC TRIGGER UACC YES
--- NOTE | 2024-12-31 11:24 | ED.GENADULT ---
HPI - General Adult General Chief complaint: General Medical Stated complaint: back pain Time Seen by Provider: 12/31/24 11:07 Source: patient and military technology specialist Mode of arrival: ambulatory Limitations: no limitations History of Present Illness ED Provider: DR. Wang HPI narrative: 62-year-old male PMH hypothyroidism, seizure disorder, essential hypertension, GERD, Parkinson's disease, atrial fibrillation on Xarelto, patient walked into the emergency department evaluating of lower back pain started this morning pain is localized to the left lower back, radiates to the groin area, patient declined any fall or injury to back, no dysuria, no frequency urination, no blood in the urine. Patient also complaining of headache that is on and off for the past 3 days, patient feels the headache as electrical shock to the top of his head, intermittently. phenytoin was replaced with lacosamide for seizure patient do not take Phenytoin anymore. Related Data Home Medications ?Medication ?Instructions ?Recorded ?Confirmed carvedilol 3.125 mg tablet 3.125 mg PO BID@1200,2100 01/01/21 12/28/23 cholecalciferol (vitamin D3) 50 50 mcg PO DAILY@1200 01/01/21 12/28/23 mcg (2,000 unit) capsule losartan 50 mg tablet 50 mg PO BEDTIME 01/01/21 12/28/23 omeprazole 20 mg capsule,delayed 20 mg PO BID@0630,1630 01/01/21 12/28/23 release paroxetine HCl 10 mg tablet 10 mg PO DAILY@1200 01/01/21 12/28/23 phenytoin sodium extended 100 mg 200 mg PO BID@1200,2100 01/01/21 12/28/23 capsule atorvastatin 40 mg tablet 40 mg PO DAILY@1200 11/25/22 12/28/23 albuterol sulfate 90 mcg/actuation 2 puff inhalation Q4H PRN wheezing 01/20/23 12/28/23 aerosol inhaler (Ventolin HFA) carbidopa 25 mg-levodopa 100 mg tab PO 12/28/23 12/28/23 tablet dulaglutide 0.75 mg/0.5 mL mg subcut 12/28/23 12/28/23 subcutaneous pen injector (Trulicity) Previous Rx's ?Medication ?Instructions ?Recorded alcohol swabs 1 pad topical QIDACHS #100 ea 11/25/22 blood sugar diagnostic (FreeStyle #100 ea 11/25/22 Lite Strips) blood-glucose meter (FreeStyle #1 ea 11/25/22 Lite Meter kit) flecainide 50 mg tablet 50 mg PO Q12H #60 tabs 11/25/22 glipizide 5 mg tablet 5 mg PO BIDWM #60 tabs 11/25/22 lancets 28 gauge (FreeStyle #100 ea 11/25/22 Lancets) metformin 500 mg tablet 500 mg PO BIDWM #60 tabs 11/25/22 rivaroxaban 20 mg tablet (Xarelto) 20 mg PO DAILY #30 tabs 11/25/22 levothyroxine 50 mcg tablet 50 mcg PO QAM #30 tabs 10/11/24 Allergies Allergy/AdvReac Type Severity Reaction Status Date / Time aspirin (ASPIRIN) Allergy Unknown ITCHING Verified 12/31/24 10:48 penicillin G Allergy Unknown Unknown Verified 12/31/24 10:48 Penicillins (PENICILLINS) Allergy Unknown SWELLING Verified 12/31/24 10:48 Review of Systems Review of Systems: all other systems are reviewed and are negative Constitutional: Reports as per HPI and Reports no additional constitutional complaints Eyes: Reports as per HPI and Reports no additional eye complaints Reports system reviewed and no additional complaints, except as documented Cardiovascular: Reports as per HPI and Reports no additional cardiovascular complaints Respiratory: Reports as per HPI and Reports no additional respiratory complaints Gastrointestinal: Reports as per HPI and Reports no additional gastrointestinal complaints Genitourinary: Reports no additional female genitourinary complaints Musculoskeletal: Reports no additional musculoskeletal complaints Skin/Breast: Reports system reviewed and no additional complaints, except as docu Psychiatric: Reports no additional psychiatric complaints Endocrine: Reports no additional endocrine complaints Hematologic/Lymphatic: Reports no additional hematologic/lymphatic complaints Allergic/Immunologic: Reports no additional allergic/immunologic complaints Reports system reviewed and no additional complaints, except as documented and Reports Abnormal speech present [facility] Past Medical History Medical History Atrial fibrillation with RVR Afib COVID-19 Asthma Epilepsy Vitamin D deficiency Hypothyroidism Multinodular thyroid Surgical History Hx of cardiac cath Family History Family History Mother Heart problem Father Hypertension Social History Social History Alcohol intake: never Patient Tobacco Use Status: Never used Tobacco Advance Directives: No Advance Directives Information Provided: Yes Do you have a plan to hurt others: No Plan service: No Current occupational status: disabled Current occupation: Right hand dominant Physical Exam ED Vital Signs: Vital Signs - 24 hr 12/31/24 10:47 12/31/24 12:02 12/31/24 14:11 Temperature 96.5 F L 97.9 F 98 F Pulse Rate 76 68 67 Respiratory Rate 16 12 14 Blood Pressure 135/58 L 110/57 L 139/74 Pulse Oximetry 96 98 98 Oxygen Delivery Method Room Air Room Air Room Air BMI result Body Mass Index 30.4 Vital signs have been reviewed and appear to be correct. Blood pressure elevated. Heart rate normal. Respiratory rate normal. Temperature normal. Oxygen saturation normal. Appearance: Alert. Oriented X3. No acute distress. Head: Normal external exam. Normocephalic. Atraumatic. No Felder signs noted. No raccoon eyes noted Eyes: PERRLA. EOMI. Conjunctiva and sclera normal. Eyelids normal. ENT: TM's Normal. Pharynx normal. Uvula midline. Moist mucous membranes. No trismus noted. No drooling noted. No muffled voice noted. Neck: Normal inspection. Neck supple. FROM. No adenopathy. Thyroid Normal. No meningeal signs. No neck mass noted. CVS: Normal heart rate and rhythm. Heart sound normal. No murmurs noted. Pulses normal throughout. Respiratory: No respiratory distress. Painless inspiration. Breath sounds normal. No wheezes/rales/rhonchi noted. Chest nontender. No accessory muscle usage noted or decreased air movement noted. Abdomen: Soft and nontender. Bowel sounds normal in all 4 quadrants. No distention noted. No organomegaly noted. No visible injury noted. Back: No CVA tenderness. lower back pain, no rebound tenderness, no reproducible tenderness, no ecchymosis, no palpable mass. Skin: Skin warm and dry. Normal skin color. Normal skin turgor. No rashes/lesions/lacerations noted. Extremities: No lower extremity edema. Extremities exhibit normal range of motion. Extremities nontender. Neuro: Mental status: Normal attention, orientation, memory, and affect. Cranial nerves: Pupils are equal, round and reactive to light, EOMI, visual gunter are fall, face is symmetric, facial sensations are normal. Motor examination normal muscle tone, strength to 4 extremities. DTR are +2, planter's are flexor. Sensory exam; normal coordination, no ataxia, gait stable. Cerebellar exam: [id number] and inus-ce-sgrm is normal. Extrapyramidal system: No tremors, no rigidity with normal facial expressions. Pronator drift not present Course Reevaluation(s) Reevaluation #1: 64-year-old male with history of seizure presented with low back pain, seizure medication was changed by his PCP to lacosamide instead of phenytoin, Patient feels better after was given Tylenol, hungry and asking for food patient tolerated p.o. ED. ambulating steadily. Will discharge to follow-up with PCP. Time: 15:00 Medications Administered Discontinued Medications Generic Name Dose Route Start Last Admin Trade Name Reynaldoq PRN Reason Stop Dose Admin Acetaminophen 975 mg 12/31/24 14:11 12/31/24 14:42 Acetaminophen 325 Mg Tablet PO 12/31/24 14:12 975 mg ONCE ONE Administration Medical Decision Making Differential Diagnosis Differential Diagnoses: The differential diagnosis associated with the presentation includes ( seizure, electrolyte derangement, severe anemia, lumbar degenerative disease.) Admission/Observation Consideration of admission/observation: Escalation of care including admission/observation considered Lab Data MDM Lab Attestation statement: I reviewed the patient's lab results. 12/31/24 11:08 12/31/24 11:08 Labs: Lab Results 12/31/24 12/31/24 Range/Units 11:08 11:59 WBC 8.2 (4.8-10.8) X10*3/uL RBC 4.47 L (4.60-5.80) X10*6/uL Hgb 13.7 L (14.0-18.0) g/dl Hct 39.5 L (42.0-52.0) % MCV 88.4 (80.0-98.0) fL MCH 30.6 (27.0-33.0) pg MCHC 34.7 (31.0-36.0) g/dl RDW 13.1 (11.0-16.0) % Plt Count 216 (160-400) X10*3/uL MPV 9.1 L (9.4-12.4) fL Immature Gran % (Auto) 0.2 (0.0-0.4) % Neut % (Auto) 56.2 (45-73) % Lymph % (Auto) 32.8 (20-40) % [place] % (Auto) 7.8 (2-11) % Eos % (Auto) 2.6 (0-4) % Baso % (Auto) 0.4 (0-2) % Lymph # (Auto) 2.7 (1.2-4.9) X10*3/uL [place] # (Auto) 0.6 (0.1-1.2) X10*3/uL Eos # (Auto) 0.2 (0.0-0.4) X10*3/uL Baso # (Auto) 0.0 (0.0-0.2) X10*3/uL Abs Immat Gran (auto) 0.02 (0.00-0.03) X10*3/uL Absolute Neuts (auto) 4.6 (2.0-8.3) x10*3/uL Absolute Nucleated RBC 0.000 (0.0-0.012) X10*3/uL Nucleated RBC % (auto) 0.0 (0.0-0.2) /100WBC Sodium 143 (135-145) mmol/L Potassium 4.5 (3.3-5.1) mmol/L Chloride 108 (96-108) mmol/L Carbon Dioxide 25 (22-29) mmol/L Anion Gap 15 (12-20) BUN 15 (9-16) mg/dL Creatinine 0.95 (0.5-1.4) mg/dL Estim Creat Clear Calc 95.3 Estimated GFR > 60 Random Glucose 144 H (60-115) mg/dL Calcium 9.1 (8.4-10.2) mg/dL Total Bilirubin 0.5 (0.0-1.0) mg/dL AST 22 (5-37) U/L ALT 20 (0-40) U/L Alkaline Phosphatase 72 (39-117) U/L Total Protein 7.4 (6.5-8.0) g/dL Albumin 4.2 (3.5-5.0) g/dL Lipase 88 H (8-78) U/L Urine Color Dark Yellow Urine Appearance Clear Urine pH 5.5 (5.0-9.0) Ur Specific [place] >= 1.030 H (1.005-1.025) Urine Protein 100 (2+) H (Neg-Trace) mg/dL Urine Glucose (UA) Negative (Negative) mg/dL Urine Ketones 15 (Negative) mg/dL Urine Blood Negative (Negative) Urine Nitrite Negative (Negative) Ur Leukocyte Esterase Negative (Negative) Urine RBC 0-2 (0-2) /HPF Urine WBC 0-5 (0-5) /HPF Ur Squamous Epith Cells 0-2 (0-2) /HPF Urine Bacteria 1+ (None Seen) Hyaline Casts 0-2 (0-2) /LPF Phenytoin < 1.8 L* (10.0-20.0) ug/mL Independent Interpretation I performed an independent interpretation of an: Plain X-Ray ( Sacral lumbar/lumbar:No acute fracture, dislocation or significant degenerative changes.) Radiology Impression Discussion of test interpretation with radiology: I have reviewed the radiologist's reading. Discharge Plan Discharge Clinical Impression: Back pain, Headache Patient Disposition: Home, Self-Care Instructions: Back Pain (ED) Prescriptions: No Action levothyroxine 50 mcg tablet 50 mcg PO QAM Qty: 30 5RF atorvastatin 40 mg tablet 40 mg PO DAILY@1200 metformin 500 mg Tablet 500 mg PO BIDWM Qty: 60 0RF glipizide 5 mg Tablet 5 mg PO BIDWM Qty: 60 0RF flecainide 50 mg tablet 50 mg PO Q12H Qty: 60 0RF Xarelto 20 mg tablet 20 mg PO DAILY Qty: 30 0RF Rx Instructions: must administer with evening meal (DME) FreeStyle Lite Strips Strip Qty: 100 0RF Rx Instructions: Test four times a day or as directed. (DME) blood-glucose meter [FreeStyle Lite Meter] Kit Qty: 1 0RF Rx Instructions: As Directed alcohol swabs Pads, Medicated 1 pad TOPICAL QIDACHS Qty: 100 0RF Rx Instructions: Use four times a day or as directed. (DME) lancets [FreeStyle Lancets] 28 gauge misc Qty: 100 0RF Rx Instructions: Test four times a day or as directed. carvedilol 3.125 mg tablet 3.125 mg PO BID@1200,2100 losartan 50 mg tablet 50 mg PO BEDTIME cholecalciferol (vitamin D3) 50 mcg (2,000 unit) capsule 50 mcg PO DAILY@1200 omeprazole 20 mg capsule,delayed release(DR/EC) 20 mg PO BID@0630,1630 phenytoin sodium extended 100 mg capsule 200 mg PO BID@1200,2100 paroxetine HCl 10 mg tablet 10 mg PO DAILY@1200 albuterol sulfate [Ventolin HFA] 90 mcg/actuation HFA aerosol inhaler 2 puff inhalation Q4H PRN (Reason: wheezing) Trulicity 0.75 mg/0.5 mL pen injector subcut carbidopa-levodopa 25-100 mg tablet PO Referrals: [facility] [Primary Care Provider, Medical] Print Language: Luxembourgish
[2024-12-31 11:36] LABS: Alanine Aminotransferase 20 U/L (0-40); Albumin Level 4.2 g/dL (3.5-5.0); Alkaline Phosphatase 72 U/L (39-117); Anion Gap 15 (12-20); Aspartate Amino Transferase 22 U/L (5-37); Blood Urea Nitrogen 15 mg/dL (9-16); Calcium 9.1 mg/dL (8.4-10.2); Carbon Dioxide 25 mmol/L (22-29); Chloride 108 mmol/L (96-108); Creatinine Clr Calc Pharmacy 95.3; Estimated Glomerular Filt Rate > 60; Lipase 88 U/L (8-78); Potassium 4.5 mmol/L (3.3-5.1); Sodium 143 mmol/L (135-145); Total Protein 7.4 g/dL (6.5-8.0)
[2024-12-31 12:02] VITALS: BP 110/57; PULSE 68; RESP 12; TEMP 36.6; O2SAT 98
[2024-12-31 14:11] VITALS: BP 139/74; PULSE 67; RESP 14; TEMP 36.6; O2SAT 98
[2024-12-31 15:19] VITALS: BP 139/74; PULSE 67; RESP 14; TEMP 36.6; O2SAT 98
== END 2024-12-31 15:19 | disposition home or self-care (01) ==
PROVIDERS: Absent Provider Student in an Organized Health Care Education/Training Program; Emergency Provider Emergency Medicine
DX: M54.50 Low back pain, unspecified (principal); I48.91 Unspecified atrial fibrillation; M53.3 Sacrococcygeal disorders, not elsewhere classified; R51.9 Headache, unspecified; Z79.01 Long term (current) use of anticoagulants; Z79.899 Other long term (current) drug therapy
CPT/HCPCS: 36415; 72100; 72200; 80053; 80185; 81001; 83690; 85025; 99283; 99284

== ENCOUNTER → 2024-12-31 12:15 | Outpatient (BNV) | payer MEDICARE, MEDICAID, SELFPAY | PROVIDERS: Absent Provider Student in an Organized Health Care Education/Training Program; Emergency Provider Emergency Medicine; Visit Provider Radiology Diagnostic Radiology | DX: M54.50 Low back pain, unspecified (principal); M53.3 Sacrococcygeal disorders, not elsewhere classified | CPT/HCPCS: 72100; 72200 ==

== ENCOUNTER 2025-02-05 15:13 | Outpatient (AMB) | payer MEDICARE, MEDICAID, SELFPAY ==
[2025-02-05 15:16] VITALS: BP 104/58; PULSE 79; O2SAT 96; BMI 30.5
--- NOTE | 2025-02-05 15:16 | A.OFFVIS_ITS ---
Vital Signs 02/05/25 15:16 Height 5 ft 11 in Weight 218 lb 14.704 oz BMI 30.5 BP 104/58 L Blood Pressure Location Rt brachial Position Sitting Pulse 79 Pulse Source Pulse Oximeter Pulse Oximetry (%) 96 Oxygen Delivery Method Room Air Intake Visit Reasons: mng Intake Note: Patient present today for NTMNG follow up visit. Cementer Helper Required: Yes Cementer Helper Language: Mold Parter Services: Cementer Helper Present Cementer Helper Name: [facility] Information Interpreted: non-clinical & clinical Accompanied by: Self / Same As Patient Allergies aspirin (ASPIRIN) Allergy (Unknown, Verified 02/05/25 15:16) ITCHING penicillin G Allergy (Unknown, Verified 02/05/25 15:16) Unknown Penicillins (PENICILLINS) Allergy (Unknown, Verified 02/05/25 15:16) SWELLING Medication List - Last Reconciled 02/05/25 by Buck Mandujano MD albuterol sulfate 90 mcg/actuation (Ventolin HFA) 2 puffs inhalation Q4H PRN alcohol swabs 1 pad topical QIDACHS atorvastatin 40 mg PO DAILY@1200 blood sugar diagnostic (FreeStyle Lite Strips) Test four times a day or as directed. blood-glucose meter (FreeStyle Lite Meter kit) As Directed carbidopa-levodopa 25-100 mg tabs PO carvedilol 3.125 mg PO BID@1200,2100 cholecalciferol (vitamin D3) 50 mcg PO DAILY@1200 dulaglutide (Trulicity) mg subcut flecainide 50 mg PO Q12H glipizide 5 mg PO BIDWM lancets (FreeStyle Lancets) Test four times a day or as directed. levothyroxine 50 mcg PO QAM losartan 50 mg PO BEDTIME metformin 500 mg PO BIDWM omeprazole 20 mg PO BID@0630,1630 paroxetine HCl 10 mg PO DAILY@1200 phenytoin sodium extended 200 mg PO BID@1200,2100 rivaroxaban (Xarelto) 20 mg PO DAILY HPI Comments Details: 64 YO M with PMHx seizure disorder who is seen in F/U for NTMNG and Hypothyroidism. The patient last saw Dr. Lomeli on 12/31/2021 Currently denies any compressive symptoms. Denies any symptoms of hyper or hypothyroidism. He takes Levothyroxine 25 mcg PO daily. Takes this in the morning with just water. Waits 1 hour to eat. Takes all of his other medications later in the day. Denies any history of head or neck irradiation. Denies any family history of thyroid cancer. Had thyroid US which revealed 2 subcentimeter nodules. Has never had a biopsy of these nodules. Thyroid US 11/27/2020: Right Thyroid Lobe: 4.4 x 1.5 x 1.1 cm, volume 3.8 mL. Previously 4.5 x 1.6 x 1.1 cm, volume 4.1 mL. Parenchyma: The gland echotexture is homogeneous. Thyroid vascularity is normal. Left Thyroid Lobe: 4.8 x 1.3 x 1.5 cm, volume 4.9 mL. Previously 4.7 x 1.6 x 1.6 cm, volume 6.3 mL. Parenchyma: The gland echotexture is homogeneous. Thyroid vascularity is normal. Isthmus: 0.3 cm in maximum AP dimension. Previously 0.3 cm. Estimated total number of nodules greater than or equal to 1 cm: 0. Food Service Cashier nodules are described as follows: 1. Location: Right anterior mid. Size: 0.3 x 0.2 x 0.2 cm, volume 0.01 mL. Previously: 0.3 x 0.2 x 0.3 cm, volume 0.01 mL. Nodule characteristics: Composition: Cannot be determined (2). Echogenicity: Hypoechoic (2). Shape: Not taller than wide (0). Margins: Smooth (0). Echogenic Foci: None (0). ACR TI-RADS total points: 4 ACR TI-RADS category: 4 Comparison: No significant change. 2. Location: Left inferior. Size: 0.9 x 0.6 x 0.6 cm, volume 0.17 mL. Previously: 0.6 x 0.5 x 0.4 cm, volume 0.06 mL. Nodule characteristics: Composition: Cystic(0). ACR TI-RADS total points: 0 ACR TI-RADS category: 1 Comparison: No significant change. NODES: No lymphadenopathy is seen in the tissue surrounding the thyroid gland. Labs: Laboratory Tests 12/26/21 09:35 25-OH Vitamin D Total 39.7 TSH 2.11 Free T4 0.79 Currently on 50 mcg levothyroxine . Repeat ultrasound showed no change in the size of the left inferior thyroid nodule The patient is a 64-year-old male presenting with thyroid nodules and associated symptoms. The patient reports having small nodules in the thyroid, which have been under observation. He experiences difficulty swallowing, particularly when lying down, and reports sleeping in an upright position to alleviate discomfort. The patient denies any choking or significant discomfort when raising his hands above his head. However, he experiences pain when lying down, which is not believed to be related to the thyroid nodules. The patient has been advised to follow up with an director of residential services Dr. Joseph in our practice for further evaluation, including an ultrasound to assess the thyroid nodules. There is a suspicion of an esophageal disorder contributing to his symptoms, and he has been advised to consult his primary care physician for further evaluation. [facility] Medical History Atrial fibrillation with RVR Afib COVID-19 Asthma Epilepsy Vitamin D deficiency Hypothyroidism Multinodular thyroid Surgical History Hx of cardiac cath Family History Mother Heart problem Father Hypertension Social History Alcohol intake: never Patient Tobacco Use Status: Never used Tobacco service: No Current occupational status: disabled Current occupation: Right hand dominant Physical Exam Vital Signs: Last Vital Signs Pulse 79 02/05/25 15:16 BP 104/58 L 02/05/25 15:16 Pulse Ox 96 02/05/25 15:16 Oxygen Delivery Method Room Air 02/05/25 15:16 BMI result Body Mass Index 30.5 Const Other: Thyroid gland is normal size weighs about 15 g. There are no thyroid nodules palpated. There was a negative Erika sign. Assessment & Plan Assessment & Plan (1) Hypothyroidism: Code(s): E03.9 - Hypothyroidism, unspecified Category: Medical Qualifiers: Hypothyroidism type: unspecified Qualified Code(s): E03.9 - Hypothyroidism, unspecified Plan: This 64-year-old male with a history of hypothyroidism currently on 50 mcg levothyroxine. He appears to be clinically euthyroid Plan is to TSH and free T4. We will have patient follow up with Dr. Joseph an director of residential services in our practice with expertise in thyroid ultrasound and FNA to better assess the nodules. I do not think patient's symptoms are related to nodules or thyroid etiology (2) Multinodular thyroid: Code(s): E04.2 - Nontoxic multinodular goiter Category: Medical Plan: Multinodular goiter with subcentimeter nodules with ultrasound with repeat ultrasound in 2023 showing no change in the size of the nodules . Will have patient follow up with Dr. Joseph an director of residential services in our practice with expertise in thyroid ultrasound and FNA if necessary 1. Thyroid nodules The patient has small thyroid nodules that are currently being monitored. An ultrasound is recommended for further evaluation to assess the nodules' characteristics and any potential changes. 2. Dysphagia The patient reports difficulty swallowing, particularly when lying down. It is advised to consult with the primary care physician to explore potential esophageal causes and consider further diagnostic evaluation. 3. Sleep disturbance The patient reports sleeping in an upright position due to discomfort when lying down. Further evaluation of the underlying cause is necessary, potentially related to esophageal issues. The patient was informed about the presence of small thyroid nodules and the need for further evaluation through ultrasound. It was discussed that the difficulty swallowing and sleep disturbance might not be related to the thyroid and could involve esophageal issues. The patient was advised to follow up with an director of residential services and consult the primary care physician for further evaluation. - Schedule an ultrasound with the director of residential services for further evaluation of thyroid nodules. - Consult with your primary care physician regarding swallowing difficulties and potential esophageal issues. - Follow up with Dr. Joseph as recommended. The patient had an opportunity to ask questions regarding treatment plan. The patient expressed understanding and agreement with the above treatment plan. Patient was informed and verbally consented to the use of an ambient scribe for clinic note documentation during this visit. Orders: Orders Thyroid Stimulating Hormone Today E03.9 - Hypothyroidism, unspecified Free T4 (Free Thyroxine) Today E03.9 - Hypothyroidism, unspecified Coding Level of Care Code Est Pt Level 3 (27788) Diagnoses Hypothyroidism, unspecified type E03.9 Hypothyroidism type: unspecified Multinodular thyroid E04.2
--- OUTSIDE RECORDS SUMMARY | 2025-02-05 15:30 | XMS_ITS | Encounter Summary ---
Author Organization [employer] Address [address] [place] [address] Care Team Providers Care Data Clerk Name Role Phone Kristen Cedeno MD Primary Care Pro vider Reason for Visit * Reason Comments Med Refill Encounter Details Date Type Department Care Team ([facility] st Contact Info) Description 01/31/2025 Refill [facility] [address] [place] [address] Kristen Cedeno MD [address] [place] [address] Social History Tobacco Use Types Packs/Day Years Used Date Smoking Tobacco: Never Passive Smoke Exposure: Never Smokeless Tobacco: Never Alcohol Use Standard Drinks/Week Comments Not Currently 0 (1 standard drink = 0.6 oz pur e alcohol) Depression Answer Date Recorded Patient Health Questionnaire-9 Score 8 02/29/2024 Patient Health Questionnaire-9 Score 8 02/29/2024 Last PHQ-9: Questionnaire Data Not on file 0 02/29/2024 Housing Stability Answer Date Recorded What is your housing situation today? I have venkatesh garcia 02/29/[address] you li ve. Do you have problems with any of the following? None of the above 02/29/2024 Food Insecurity Answer Date Recorded Within the past 12 months, y ou worried that your food would run out before you got money to buy more: Never True 02/29/2024 Within the past 12 months,th e food you bought just didn't last and you didn't have enough money to get more: Never True 08/2023 Transportation Answer Date Recorded In the past 12 months, has l ack of transportation kept you from medical appts, meetings, work or from getting things needed for daily living? No 02/29/2024 Utilities Answer Date Recorded In the past 12 months, has t he electric, gas, oil or water company threatened to shut off services in your home? No 02/29/2024 Depression Answer Date Recorded Patient Health Questionnaire-2 Score 2 02/29/2024 Internet Access Answer Date Recorded Internet Access Q1 Yes 10/31/2024 Internet Access Q2 Not on file 10/31/2024 Sex and Gender Information Value Date Recorded Sex Assigned at Male 04/27/2022 10:35 AM EDT Legal Sex Male 10:35 AM EDT Gender Identity Male 04/27/2022 10:35 AM EDT Sexual Orientation Straight 04/27/2022 10 :35 AM EDT documented as of this encounter Plan of Treatment Upcoming Encounters Date Type Department Care Team (Late st Contact Info) Description 03/13/2025 10:45 AM EDT Office Visit [facility] [address] [place] [address] Kristen Cedeno MD [address] [place] [address] 03/30/2025 3:00 PM EDT Office Visit [facility] [address] [place] [address] Temo, Lynne, OD [address] [place] [address] documented as of this encounter Visit Diagnoses Not on filedocumented in this encounter Additional Health Concerns Assessment Noted Time PHQ-9 Depression Total Score: 8 02/29/20 24 9:34 AM EDT documented as of this encounter Care Teams Data Clerk Relationship Specialty Start Date End Date Kristen Cedeno MD [address] [place] [address] PCP - General Internal Medicine 11/27/22 documented as of this encounter
--- OUTSIDE RECORDS SUMMARY | 2025-02-05 15:30 | XMS_ITS | Clinical Summary ---
Author Organization [facility] Address [address] [place], [place] [id number] Phone Care Team Providers Care Turbo Generator Oiler Name Role Phone Pcp, Unknown Primary Care Provider Unavailabl e Social History Tobacco Use Types Packs/Day Years Used Date Smoking Tobacco: Never Assessed Education Answer Date Recorded Are you interested in more education? Not on lolly e 03/15/2024 Are you concerned about learning? Not on file 03/15/2024 No 03/15/2024 No 03/15/2024 Digital Access Answer Date Recorded No 03/15/2024 No 03/15/2024 Reliable internet access at home? Not on file 03/15/2024 Device with a working camera? Not on file Sex and Gender Information Value Date Recorded Sex Assigned at Not on file Legal Sex Male 3:56 PM EDT Gender Identity Not on file Sexual Orientation Not on file Plan of Treatment Not on file Medical Devices Not on [place] [address] [place] [address] [employer] MED[employer]ARE REPLACEMENT [place] [id number] MEDICARE REPLACEMENT MEDICARE REPLACEMENT [place] [address] [place] [address] [employer] [place] [address] [place] [address] CARE MEDICARE REPLACEMENT Care Teams Turbo Generator Oiler Relationship Specialty Start Date End Date Pcp, Unknown PCP - General 04/20/23 Additional Source Comments The information contained in this document represents components of the legal health record. It is not the complete legal health record.[facility]
== END 2025-02-05 15:44 | disposition home or self-care (01) ==
LOC: HO.ENCR 15:13
PROVIDERS: PCP Student in an Organized Health Care Education/Training Program; Visit Provider Internal Medicine Endocrinology, Diabetes & Metabolism
DX: E03.9 Hypothyroidism, unspecified (principal); E04.2 Nontoxic multinodular goiter
CPT/HCPCS: 99213

== ENCOUNTER → 2025-02-05 15:13 | Outpatient (BNVA) | payer MEDICARE, MEDICAID, SELFPAY | PROVIDERS: PCP Student in an Organized Health Care Education/Training Program; Visit Provider Internal Medicine Endocrinology, Diabetes & Metabolism | DX: E04.2 Nontoxic multinodular goiter (principal); E03.9 Hypothyroidism, unspecified | CPT/HCPCS: 99212 ==

== ENCOUNTER 2025-04-12 15:34 | Outpatient (REF) | payer OTHER, SELFPAY ==
[2025-04-12 18:07] LABS: Free T4 (Free Thyroxine) 0.93 ng/dL (0.71-1.85); Thyroid Stimulating Hormone 0.42 uIU/mL (0.32-4.0)
== END 2025-04-12 15:35 | disposition home or self-care (01) ==
LOC: HO.LAB 15:34
PROVIDERS: Absent Provider Student in an Organized Health Care Education/Training Program; PCP Student in an Organized Health Care Education/Training Program; Visit Provider Student in an Organized Health Care Education/Training Program
DX: E04.2 Nontoxic multinodular goiter (principal); E03.9 Hypothyroidism, unspecified
CPT/HCPCS: 36415; 84439; 84443; 99212

== ENCOUNTER 2025-04-12 15:34 | Outpatient (AMB) | payer OTHER, SELFPAY ==
[2025-04-12 15:46] VITALS: BP 122/64; PULSE 86; O2SAT 98
--- NOTE | 2025-04-12 15:46 | A.OFFVIS_ITS ---
Vital Signs 04/12/25 15:46 Height 5 ft 11 in Weight 214 lb 15.211 oz BMI 30.0 BP 122/64 Blood Pressure Location Rt brachial Position Sitting Pulse 86 Pulse Source Pulse Oximeter Pulse Oximetry (%) 98 Oxygen Delivery Method Room Air Intake Visit Reasons: MNG Intake Note: Patient present today for MNG office visit. Floor Specialist Required: Yes Floor Specialist Name: Kyle Klein Information Interpreted: non-clinical & clinical Allergies aspirin (ASPIRIN) Allergy (Unknown, Verified 04/12/25 15:50) ITCHING penicillin G Allergy (Unknown, Verified 04/12/25 15:50) Unknown Penicillins (PENICILLINS) Allergy (Unknown, Verified 04/12/25 15:50) SWELLING Medication List - Last Reconciled 04/12/25 by Jenni Joseph MD albuterol sulfate 90 mcg/actuation (Ventolin HFA) 2 puffs inhalation Q4H PRN alcohol swabs 1 pad topical QIDACHS atorvastatin 40 mg PO DAILY@1200 blood sugar diagnostic (FreeStyle Lite Strips) Test four times a day or as directed. blood-glucose meter (FreeStyle Lite Meter kit) As Directed carbidopa-levodopa 25-100 mg tabs PO carvedilol 3.125 mg PO BID@1200,2100 cholecalciferol (vitamin D3) 50 mcg PO DAILY@1200 dulaglutide (Trulicity) mg subcut flecainide 50 mg PO Q12H glipizide 5 mg PO BIDWM lancets (FreeStyle Lancets) Test four times a day or as directed. levothyroxine 50 mcg PO QAM losartan 50 mg PO BEDTIME metformin 500 mg PO BIDWM omeprazole 20 mg PO BID@0630,1630 paroxetine HCl 10 mg PO DAILY@1200 phenytoin sodium extended 200 mg PO BID@1200,2100 rivaroxaban (Xarelto) 20 mg PO DAILY HPI Comments Details: 64 YO M with PMHx seizure disorder who is seen in F/U for NTMNG and Hypothyroidism. Here today with stephanie Brody History of multinodular goiter at least since 2018. Ultrasound thyroid 05/19/2024, I reviewed the images myself showed a heterogenous gland. Multiple cysts noted. A left isthmus 0.8 cm solid hypoechoic nodule. I do not see this nodule on the ultrasound soft tissue neck from 2019 or 2020 but it might not have been captured. Mostly those ultrasounds did point towards the left lower lobe cyst. Ultrasound from December 2021 did show the left isthmus solid hypoechoic versus isoechoic nodule which was about the same size as on most recent ultrasound, subcentimeter. I would categorize this as a TR 3 nodule. Given this is close to a cm in size though still subcentimeter, we will plan to repeat ultrasound in 2 years from the last 1 which would be sometime in April 2026. He experiences difficulty swallowing, particularly when lying down, and reports sleeping in an upright position to alleviate discomfort. Denies any symptoms of hyper or hypothyroidism. He takes Levothyroxine 50 mcg PO daily. Takes this in the morning with just water. Waits 1 hour to eat. Takes all of his other medications later in the day. Denies any history of head or neck irradiation. Denies any family history of thyroid cancer. Physical exam General: sitting comfortably in no acute distress HEENT: normocephalic/atraumatic, Neck: supple, Cardiac: normal heart sounds Pulm: normal breath sounds B/L, no added breath sounds Abd: not distended, no tenderness Extremities: no edema, no signs of myxedema Laboratory Tests 05/02/24 09:57 TSH 2.37 Free T4 0.95 US THYROID 05/19/24 CLINICAL INFORMATION: Thyroid nodules. COMPARISON: Ultrasound thyroid 12/31/2021 and 11/27/2020. CT neck 08/10/2018. TECHNIQUE: Linear transducer grayscale and color Doppler examination with attention to the region of the thyroid. FINDINGS: SIZE: Measurements of the thyroid lobes and nodules are given in sagittal, anteroposterior and transverse dimensions respectively. Right Thyroid Lobe: 4.1 x 1.3 x 1.4 cm, volume 3.8 mL. Previously 4.1 x 1.6 x 1.2 cm, volume 4.1 mL. Parenchyma: The gland echotexture is homogeneous. Thyroid vascularity is normal. Left Thyroid Lobe: 3.8 x 1.3 x 1.4 cm, volume 3.5 mL. Previously 3.9 x 1.2 x 1.5 cm, volume 3.7 mL. Parenchyma: The gland echotexture is homogeneous. Thyroid vascularity is normal. Isthmus: 0.2 cm in maximum AP dimension. Previously 0.2 cm. Estimated total number of nodules greater than or equal to 1 cm: 0. [employer] nodules are described as follows: 1. Location: Left lower isthmus. Size: 0.9 x 0.4 x 0.8 cm, volume 0.2 mL. Previously: 0.8 x 0.4 x 0.6 cm, volume 0.1 mL. Nodule characteristics: Composition: Solid (2). Echogenicity: Cannot be determined (1). Shape: Not taller than wide (0). Margins: Smooth (0). Echogenic Foci: None (0). ACR TI-RADS total points: 3 Previous: 3 ACR TI-RADS category: 3 Previous: 3 Significant change in size (>/= 20% in 2 dimensions and minimal increase of 2 mm or 50% or greater increase in volume): Yes Change in features: No Change in ACR TI-RADS risk category: No NODES: No lymphadenopathy is seen in the tissue surrounding the thyroid gland. US/US thyroid IMPRESSION: 1. A 0.9 cm LEFT low isthmus TR 3 thyroid nodule as detailed above. Recommend follow up ultrasound in 12 months. 2. Multiple subcentimeter cystic thyroid nodules were not characterized as per ACR criteria/protocol. [facility] Medical History Atrial fibrillation with RVR Afib COVID-19 Asthma Epilepsy Vitamin D deficiency Hypothyroidism Multinodular thyroid Surgical History Hx of cardiac cath Family History Mother Heart problem Father Hypertension Social History Alcohol intake: never Patient Tobacco Use Status: Never used Tobacco service: No Current occupational status: disabled Current occupation: Right hand dominant Physical Exam Vital Signs: Last Vital Signs Pulse 86 04/12/25 15:46 BP 122/64 04/12/25 15:46 Pulse Ox 98 04/12/25 15:46 Oxygen Delivery Method Room Air 04/12/25 15:46 BMI result Body Mass Index 30.0 Assessment & Plan Assessment & Plan (1) Multinodular thyroid: Code(s): E04.2 - Nontoxic multinodular goiter Category: Medical Plan: 64-year-old male with no family history of thyroid cancer with no personal history of head or neck radiation coming in today for follow up of multinodular thyroid. Ultrasound thyroid 05/19/2024, I reviewed the images myself showed a heterogenous gland. Multiple cysts noted. A left isthmus 0.8 cm solid hypoechoic nodule. I do not see this nodule on the ultrasound soft tissue neck from 2018 or 2020 but it might not have been captured. Mostly those ultrasounds did point towards the left lower lobe cyst. Ultrasound from December 2021 did show the left isthmus solid hypoechoic versus isoechoic nodule which was about the same size as on most recent ultrasound, subcentimeter. I would categorize this as a TR 3 nodule. Given this is close to a cm in size though still subcentimeter, we will plan to repeat ultrasound in 2 years from the last 1 which would be sometime in 1 year Plan: -ordered ultrasound of the thyroid to be done in February 2026 prior to follow up in 1 year (2) Hypothyroidism: Code(s): E03.9 - Hypothyroidism, unspecified Category: Medical Qualifiers: Hypothyroidism type: unspecified Qualified Code(s): E03.9 - Hypothyroidism, unspecified Plan: Currently on levothyroxine 50 mcg daily. He forgot to do his thyroid blood work. Plan: -ordered TSH and free T4 to be done now -continue levothyroxine 50 mcg daily Plan see above Orders: Orders Thyroid Stimulating Hormone Today E03.9 - Hypothyroidism, unspecified, E04.2 - Nontoxic multinodular goiter Free T4 (Free Thyroxine) Today E03.9 - Hypothyroidism, unspecified, E04.2 - Nontoxic multinodular goiter US thyroid 03/11/26 E04.2 - Nontoxic multinodular goiter Patient Instructions: do thyroid blood work We will let you know if anything is abnormal continue levothyroxine 50 mcg daily Do thyroid ultrasound in February 2026, someone will call you to schedule this, please make sure this is done before my next appointment in March 2026 Realice un an?lisis de cj de tiroides. Le informaremos si hay alguna ano mal?a. Contin?e con levotiroxina 50 mcg al d?a. Realice valerio ecograf?a de tiroides en 2025. Le llamaremos para programarla. Por favor, aseg?rese de que se realice antes de mi pr?xima angely en 2025. Coding Level of Care Code Est Pt Level 3 (45600) Diagnoses Multinodular thyroid E04.2 Hypothyroidism, unspecified type E03.9 Hypothyroidism type: unspecified
--- OUTSIDE RECORDS SUMMARY | 2025-04-12 19:22 | XMS_ITS | Encounter Summary ---
Author Organization [employer] Address [address] [place] [address] Care Team Providers Care Financial Professional Name Role Phone Kristen Cedeno MD Primary Care Pro vider Reason for Visit * Reason Comments Med Refill Encounter Details Date Type Department Care Team ([facility] st Contact Info) Description 03/09/2024 Refill [facility] [address] [place] [address] Kristen Cedeno MD [address] [place] [address] Hyperlipidemia, unspecified hyperlipidemia type Social History Tobacco Use Types Packs/Day Years [...] Recorded Patient Health Questionnaire-2 Score 2 02/29/2024 Sex and Gender Information Value Date Recorded Sex Assigned at Male 04/27/2022 10:35 AM EDT Legal Sex Male 10:35 AM EDT Gender Identity Male 04/27/2022 10:35 AM EDT Sexual Orientation Straight 04/27/2022 10 :35 AM EDT documented as of this encounter Plan of Treatment Upcoming Encounters Date Type Department Care Team (Late st Contact Info) Description 04/20/2025 11:30 AM EDT Office Visit [facility] [address] [place] [address] Lynne Plascencia, OD [address] [place] [address] 06/08/2025 1:30 PM EST Office Visit [facility] [address] [place] [address] Kristen Cedeno MD [address] [place] [address] documented as of this encounter Visit Diagnoses Diagnosis Hyperlipidemia, unspecified hyperlipidemia type documented in this encounter Additional Health Concerns Assessment Noted Time PHQ-9 Depression Total Score: 8 02/29/20 24 9:34 AM EDT documented as of this encounter Care Teams Financial Professional Relationship Specialty Start Date End Date Kristen Cedeno MD [address] [place] [address] PCP - General Internal Medicine 11/27/22 documented as of this encounter
--- OUTSIDE RECORDS SUMMARY | 2025-04-12 19:22 | XMS_ITS | Clinical Summary ---
Author Organization [employer] Address [address] [place] [address] Care Team Providers Care Glass Embosser Name Role Phone Kristen Cedeno MD Primary Care Pro vider Allergies Active Allergy Reactions Criticality Noted Date Comments Aspirin Angioedema 08/31/2022 Penicillin G 02/10/2024 Penicillins Angioedema 08/31/2022 Terbinafine 12/11/2021 Other reaction(s): GI Problems Medications Blood Glucose Monitoring Suppl (MeSixty Verio Flex System) w/Device kit USE DIRECTED TEST BLOOD SUGAR FOUR TIMES DAILY 11/26/19 23 Active glucose blood test strip 1 each by Other route. Active Lancets (DigitalChalkuch Delica Plus [id number]) misc USE DIRECTED TO TEST BLOOD SUGAR FOUR TIMES DAILY 100 each 12/24/19 23 Active levothyroxine (Synthroid, Levoxyl) 50 MCG tablet 01/21/20 23 Active Xarelto 20 MG tablet Take 1 tablet (20 mg) by mouth with evening meal. Take with food. 30 tablet 2 01/23/20 23 Active acetaminophen (Tylenol) 500 MG tablet Take 2 tablets (1,000 mg) by mouth every 6 (six) hours if needed for moderate pain or fever for up to 25 doses. 30 tablet 01/28/20 24 Active lidocaine-prilocai ne (Emla) 2.5-2.5 % cream APPLY TOPICALLY TO THE AFFECTED AREA(S) EVERY DAY NEEDED FOR MILD PAIN 30 g 1 04/26/20 24 Active flecainide (Tambocor) 50 MG tablet Take 50 mg by mouth. BID 07/20/19 24 Active glucose blood (OneTouch Verio) test stripIndications:T ype 2 diabetes mellitus without complication, without long-term current use of insulin (HCC) USE DIRECTED TO TEST BLOOD SUGAR ONCE DAILY 100 each 11 10/25/19 25 Active cyanocobalamin (Vitamin B-12) 500 MCG tablet Take 1 tablet (500 mcg) by mouth 3 (three) times a week. 90 tablet 11/02/19 25 Active metFORMIN (Glucophage) 500 MG tablet TAKE 1 TABLET BY MOUTH TWICE DAILY AT NOON AND IN THE EVENING WITH FOOD 60 tablet 5 11/14/19 25 Active atorvastatin (Lipitor) 40 MG tabletIndications: Hyperlipidemia, unspecified hyperlipidemia type TAKE 1 TABLET BY MOUTH EVERYDAY AT NOON 90 tablet 1 11/17/19 25 Active carvedilol (Coreg) 3.125 MG tablet TAKE 1 TABLET BY MOUTH TWICE DAILY AT NOON AND BEDTIME 180 tablet 1 11/17/19 25 Active loratadine (Claritin) 10 MG tablet Active Alcohol Swabs (Alcohol Prep) 70 % padsIndications:Ty pe 2 diabetes mellitus without complication, without long-term current use of insulin (HCC) USE FOUR TIMES DAILY OR DIRECTED 100 each 11 01/25/20 25 Active omeprazole (PriLOSEC) [address] capsule TAKE 1 CAPSULE BY MOUTH EVERYDAY AT NOON 90 capsule 02/02/20 25 Active losartan (Cozaar) 50 MG tablet TAKE 1 TABLET BY MOUTH EVERYDAY AT NOON 90 tablet 02/02/20 25 Active Trulicity 3 MG/0.5ML solution auto-injector INJECT ONE PEN (= 3MG) SUBCUTANEOUSLY ONCE A WEEK DIRECTED 2 mL 3 02/22/20 25 Active cholecalciferol (Vitamin D-3) 25 MCG tablet TAKE 1 TABLET BY MOUTH EVERYDAY AT NOON 90 tablet 03/06/20 25 Active PARoxetine (Paxil) 20 MG tablet Take 20 mg by mouth in the morning. 03/08/20 25 Active albuterol 108 (90 Base) MCG/ACT inhalerIndications :Strep pharyngitis Inhale 2 puffs every 6 (six) hours if needed for wheezing or shortness of breath for up to 10 days. 18 g 2 03/13/20 25 Active sennosides (Senna-Time) 8.6 MG tablet Take 1 tablet (8.6 mg) by mouth 2 times daily. 180 tablet 03/13/20 Active lacosamide (Vimpat) 150 mg tablet tablet Take 150 mg by mouth 2 times daily. 01/31/20 Active psyllium (Metamucil Smooth Texture) 58.6 % powder Take 5.12 g (3 g of fiber) by mouth 2 times daily. 283 g 2 03/13/20 25 026 Active carbidopa-levodopa CR (Sinemet CR) 25-100 MG ER tablet Take 2 tablets by mouth in the morning and 2 tablets at noon and 2 tablets in the evening. Do not crush, chew, or split. Active Active Problems Problem Noted Date Diagnosed Date Dysphagia 03/13/2025 MECHE (obstructive sleep apnea) 03/13/2025 Hemiparesis, unspecified hem iparesis etiology, unspecified laterality 10/31/2024 Lesion of parotid gland 02/29/2024 Onychomycosis 02/29/2024 Parkinson disease ([facility]) 11/26/2023 Right shoulder pain 05/24/2023 Knee pain 01/23/2023 Assessment & Plan (01/23/2023 5:23 PM EDT): -Right knee XR 2021: -Osteoarthritis medial knee joint compartment with secondary genu varus. No effusion. -Numerous varicose veins. -Referred today for BL XR, will f result at next appt -For now Tylenol PRN Atrial fibrillation ([facility]) 12/23/2022 Assessment & Plan (01/23/2023 5:07 PM EDT): Pt w Afib on AC, hx of [place] f w cards -Echo 08/2021: EF 60-65% ,mild TR and MR , no pulm HTN Denies melenas,BRPR nor epistaxis ,no CVs symptoms -continue care w steel pourer helper -states has f up in 01/2023 Assessment & Plan (12/23/2022 12:32 PM EDT): Pt w Afib on AC, hx of [place] f w cards -Echo 08/2021: EF 60-65% ,mild TR and MR , no pulm HTN Denies melenas,BRPR nor epistaxis ,no CVs symptoms -continue care w steel pourer helper -states has f up in 01/2023 Obese 12/23/2022 Assessment & Plan (01/23/2023 5:14 PM EDT): Advised pt to improve diet and exercise,discussed healthy life style -pt has upcomming visit w lamp replacer x 02/22/2023 -Recently started GLP1 w no side fx -Referred to sleep med x MECHE eval I gave today information to pt about specialist's office to call for appt. -Will monitor weight at next appt. Assessment & Plan (12/23/2022 12:49 PM EDT): Advised pt to improve diet and exercise,discussed healthy life style -pt has upcomming visit w lamp replacer x 02/22/2023 -to start GLP1 today x DM -will help w obesity as well -Referred to sleep med x MECHE eval Depression with anxiety 12/23/2022 Assessment & Plan (01/23/2023 5:19 PM EDT): Depression and anxiety-PHQ9: 10 today ,denies jhony,hallucinations nor SI On paroxetine -px here -pt is following w psychotx from [facility] in this clinic -[facility] has f up pt in 01/05/2023 -advise pt and niece to discuss with therapist about need x psychiatrist -seems depression is not fully controlled and may need changes in med or dose adjustment-pt will discuss w therapist if not plan x psychiatrist -will discuss w pt at next visit to try switching to escitalopram? Assessment & Plan (12/23/2022 12:41 PM EDT): Depression and anxiety-PHQ9: 10 today ,denies jhony,hallucinations nor SI On paroxetine -px here -pt is following w psychotx from [facility] in this clinic -[facility] has f up pt in 01/05/2023 -advise pt and niece to discuss with therapist about need x psychiatrist -seems depression is not fully controlled and may need changes in med or dose adjustment-pt will discuss w therapist if not plan x psychiatrist -will discuss w pt at next visit to try switching to escitalopram? Health care maintenance 12/23/2022 Assessment & Plan (01/23/2023 5:26 PM EDT): -PSA 12/2022 wnl -colonoscopy > 5 y ago per pt in [place] told to have polyps and to repeat in 5 y --referred to GI - gave info for appt. -vaccination: s/p tdap 2018, covid 19 x4 and Bivalent x1, p20 x asthma today, refusing Shingrix for now, Hep B not immune - to start series today. ----- -12/2022: Vit D elevated at 80. Will decrease dose to 1,000 from 2,000 every day, and will check level in 3 mo. ----- -CXR 10/2022 Normal -MM bl dx and right breast US 2020 IMPRESSION: Gynecomastia parenchymal pattern, greater on right. ASSESSMENT: BI-RADS 2: Benign Assessment & Plan (12/23/2022 1:04 PM EDT): -labs x annual exam-pt will RTC in fasting ? -pt agreed to have STI testing including HIV to have for baseline -however denies started active sexual life -colonoscopy > 5 y ago per pt in [place] told to have polyps and to repeat in 5 y --referred today to GI -vaccination: s/p tdap 2018, covid 19 x4 today Bivalent dose here , offered today p20 x asthma hx but wants to hold x now ,will offer at next visit shingrix -reports hx of varicella infection ----- -did today all refills requested by px -rest states no need refill yet per px ----- -CXR 10/2022 Normal -MM bl dx and right breast US 2020 IMPRESSION: Gynecomastia parenchymal pattern, greater on right. ASSESSMENT: BI-RADS 2: Benign -Right knee XR 2021 IMPRESSION: -Osteoarthritis medial knee joint compartment with secondary genu varus. No effusion. -Numerous varicose veins. Type 2 diabetes mellitus wit hout complication, without long-term current use of insulin 12/23/2022 Assessment & Plan (01/23/2023 5:28 PM EDT): DM 2 dxed in 10/2022: HbA1c 7, LDL 61, Trig 161, total chl 132, HDL 47 ASCVD risk: 14.8% - rec for statins. -Today increased metformin to 1,000 mg BID -Continue trulicity 0.75 mg weekly recently started -DM labs in 3 mo. -Advise to bring at next visit CBGs at fasting and 2h after biggest meal. -referred to fiber heel piece shaper and outboard system operator - pd appt. Assessment & Plan (12/23/2022 12:50 PM EDT): DM 2 dxed in 10/2022 Pt reports episodes of lowering CBgs to 80s and becomes symptomatic -will continue metformin 500 mg BID and will consider to increase dose at next visit -start trulicity 0.75 mg weekly -denies hx of thyroid ca or known medullar thyroid ca in close family -no hx of pancreatitis -explained how to inj and possible SE -stop glipizide ---I called px today about med changes -DM labs -referred today to fiber heel piece shaper and outboard system operator Hypertension 12/23/2022 Assessment & Plan (01/23/2023 5:09 PM EDT): -EKG report from 10/2022 NSR ,QTC 441, minimal voltage x LVH -continue BP meds-controlled today -continue to f w cards -referred to fiber heel piece shaper -Pending to get appt. -Microalbuminuria ordered at last visit, but not done. Will reorder at next appt. Assessment & Plan (12/23/2022 12:48 PM EDT): -EKG report from 10/2022 NSR ,QTC 441, minimal voltage x LVH -continue BP meds-controlled today -continue to f w cards -referred today to fiber heel piece shaper -microalb today Penicillin allergy 12/23/2022 Assessment & Plan (01/23/2023 5:22 PM EDT): Pt reports hx of PNC allergy since youth -can not recall well about incident -will offer shipping clerk packing referral to clarify if true allergy at future visits Assessment & Plan (12/23/2022 12:54 PM EDT): Pt reports hx of PNC allergy since youth -can not recall well about incident -will offer shipping clerk packing referral to clarify if true allergy at future visits Hypothyroidism 05/08/2021 Hearing loss 03/14/2021 Multinodular goiter 12/22/2019 Assessment & Plan (01/23/2023 5:12 PM EDT): -Thyroid US 11/27/2020: 1st Location: Right anterior mid. Size: 0.3 x 0.2 x 0.2 cm, ACR TI-RADS total points: 4 2nd Location: Left inferior. Size: 0.9 x 0.6 x 0.6 cm, volume 0.17 mL. ACR TI- RADS category: 1 ,NODES: No lymphadenopathy is seen in the tissue surrounding the thyroid gland. -pt f w oncology physician x thyroid nodules and hypothyroidism -seen already in 12/2022 had levothyroxine increased to 50 mg daily by specialist on 01/20/2023, and will repeat w endo TFT in 6 wk and plan for repeat thyroid US on 06/2023. Assessment & Plan (12/23/2022 12:36 PM EDT): -Thyroid US 11/27/2020: 1st Location: Right anterior mid. Size: 0.3 x 0.2 x 0.2 cm, ACR TI-RADS total points: 4 2nd Location: Left inferior. Size: 0.9 x 0.6 x 0.6 cm, volume 0.17 mL. ACR TI- RADS category: 1 ,NODES: No lymphadenopathy is seen in the tissue surrounding the thyroid gland. -pt f w oncology physician x thyroid nodules and hypothyroidism -states has a f up in 12/2022 for thyroid US -will monitor at next visit Dyslipidemia 08/01/2018 Gastroesophageal reflux disease 08/01/2018 Assessment & Plan (01/23/2023 5:10 PM EDT): Pt reports chronic PPis use BID -denies having any GI eval x this -life style changes advised -for now continue PPis -referred to GI -will need EGD. I gave today information to pt about specialist's office to call for appt. Assessment & Plan (12/23/2022 12:33 PM EDT): Pt reports chronic PPis use BID -denies having any GI eval x this -life style changes advised -for now continue PPis -referred today to GI -will need EGD Internal hemorrhoids 08/01/2018 Polyp of colon 08/01/2018 Assessment & Plan (01/23/2023 5:26 PM EDT): -reports had last colonoscopy > 5 y ago states had colonic polyps and rec to repeat in 5 y -referred to GI I gave today information to pt about specialist's office to call for appt. -For constipation advised diet and prescribed Metamucil. Will monitor at next visit. Assessment & Plan (12/23/2022 12:33 PM EDT): -reports had last colonoscopy > 5 y ago states had colonic polyps and rec to repeat in 5 y -referred today to GI today Seizure disorder (CMS/HCC) 08/01/2018 Assessment & Plan (01/23/2023 5:25 PM EDT): seizure dx-used to f w neurologist at [facility] but lost care x last years Reports had a seizure a year ago.-reports to be complaint w meds -referred back to his neurologist at [facility] to continue care as well to be eval for chronic upper ext tremors and memory loss. -Has appt for 03/24/2023. -12/2022: Vit B12 wnl at 232, but borderline low given poor memory, will start daily Vit B12. Assessment & Plan (12/23/2022 12:28 PM EDT): seizure dx-used to f w neurologist at [facility] but lost care x last years Reports had a seizure a year ago.-reports to be complaint w meds -referred back to his neurologist at [facility] to continue care as well to be eval for chronic upper ext tremors and memory loss Varicose veins of lower extremity 08/01/2018 Assessment & Plan (01/23/2023 5:06 PM EDT): Pt w hx of LEs varicoce veins from chart info -rec per pt x compression stockings but lost prescription request px -gave today again written prescription to pt Assessment & Plan (12/23/2022 12:30 PM EDT): Pt w hx of LEs varicoce veins from chart info -rec per pt x compression stockings but lost prescription request px -gave today written prescription to pt Resolved Problems Problem Noted Date Diagnosed Date Resolved Date Anxiety 08/01/2018 12/23/2022 Encounters Date Type Department Care Team Description 04/12/2025 Orders Only GENERIC EXTERNAL DATA DEPARTMENT Provider, Generic External Data 03/19/[address] [address] Kristen Cedeno MD recall Dec. 03/13/2025 10:45 AM EDT Office Visit [address] [address] Kristen Cedeno MD Dysphagia, unspecified type (Primary Dx); Type 2 diabetes mellitus without complication, without long-term current use of insulin ([facility]); Strep pharyngitis; Colon cancer screening; Gastroesophageal reflux disease, unspecified whether esophagitis present; Pain in both knees, unspecified chronicity; Health care maintenance; Hypertension, unspecified type; Dyslipidemia; Class 1 obesity due to excess calories without serious comorbidity with body mass index (BMI) of 34.0 to 34.9 in adult; Atrial fibrillation, unspecified type ([facility]); Multinodular goiter; Anxiety; Depression with anxiety; Parkinson's disease with dyskinesia without fluctuating manifestations ([facility]); Onychomycosis; MECHE (obstructive sleep apnea) 03/13/2025 Travel 03/12/2025 Telephone [facility] [address] [place] [phone] Kristen Cedeno MD chart prep 03/06/[address] [address] Kristen Cedeno MD 03/05/2025 Patient Outreach [address] [phone] Kristen Cedeno MD Pre-visit Planning (SDOH screening was completed on 10/31/2024) 02/21/2025 Refill [facility] [address] [place] [phone] Kristen Cedeno MD 02/16/2025 3:00 PM EDT Office Visit [facility] [address] [place] [phone] Mani May MD Sore throat 02/16/2025 Travel 01/31/2025 Refill [facility] [address] [place] [address] Kristen Cedeno MD 01/23/2025 Refill [facility] [address] [place] [phone] Kristen Cedeno MD Type 2 diabetes mellitus without complication, without long-term current use of insulin ([facility]) 01/19/2025 Telephone [facility] [address] [place] [phone] Kristen Cedeno MD Appointment from Last 3 Months Immunizations Immunization Administration Dates Next Due Hep B, adult 11/25/2023,05/24/2023,01/22/2023 Influenza Injectable Quadriv alant Preservative Free IIV4 MDCK 07/08/2020 Influenza injectable quadriv alent IIV4 with preservative 06/01/2019,08/30/2018 Influenza injectable quadriv alent preservative free 05/24/2023 Influenza, seasonal, injecta ble, preservative free 05/10/2024 Pfizer Covid-19 Vaccine 12+ 05/10/2024, Pfizer Covid-19 Vaccine 12+ Bivalent 12/23/2022 Pneumococcal Conjugate PCV 20 01/22/2023 Tdap 06/01/2019 Family History Medical History Relation Name Comments DM2 Brother Prostate cancer Brother lung cancer 2nd brother Brother HTN Father Prostate cancer Father Heart disease Mother niece 1.throat ca and niece 2 : brain ca Niece DM2 Sister colon ca at 67 y of age Sister Relation Name Status Comments Brother Father Mother Niece Alive Sister Social History Tobacco Use Types Packs/Day Years Used Date Smoking Tobacco: Never Passive Smoke Exposure: Never Smokeless Tobacco: Never Tobacco Cessation:Counseling Given: Not Answered Alcohol Use Standard Drinks/Week Comments Not Currently 0 (1 standard drink = 0.6 oz pur e alcohol) Depression Answer Date Recorded Patient Health Questionnaire-9 Score 17 03/13/2025 Patient Health Questionnaire-9 Score 17 03/13/2025 Last PHQ-9: Questionnaire Data Not on file 0 03/13/2025 Housing Stability Answer Date Recorded What is [...] Answer Date Recorded Patient Health Questionnaire-2 Score 4 03/13/2025 Internet Access Answer Date Recorded Internet Access Q1 Yes 10/31/2024 Internet Access Q2 Not on file 10/31/2024 Sex and Gender Information Value Date Recorded Sex Assigned at Male 04/27/2022 10:35 AM EDT Legal Sex Male 10:35 AM EDT Gender Identity Male 04/27/2022 10:35 AM EDT Sexual Orientation Straight 04/27/2022 10 :35 AM EDT Last Filed Vital Signs Vital Sign Reading Time Taken Comments Blood Pressure 110/74 03/13/2025 10:58 AM EDT Pulse 88 03/13/2025 10:58 AM EDT Temperature 36.1 C (97 F) 03/13/2025 10:58 AM EDT Respiratory Rate 20 03/13/2025 10:58 AM EDT Oxygen Saturation 95% 02/16/2025 2:15 PM EDT Inhaled Oxygen Concentration - - Weight 98.5 kg (217 lb 2 oz) 03/13/2025 10:58 AM EDT Height 175.3 cm (5' 9 ) 03/13/2025 10:58 AM EDT Body Mass Index 32.06 03/13/2025 10:58 AM EDT Plan of Treatment Upcoming Encounters Date Type Department Care Team (Late st Contact Info) Description 04/20/2025 11:30 AM EDT Office Visit [facility] [address] [place] [address] Lynne Plascencia, OD [address] [place] [address] 06/08/2025 1:30 PM EST Office Visit [facility] [address] [place] [address] Kristen Cedeno MD [address] [place], [place] [phone] Health Maintenance Due Date Last Done Comments CT Colonography 1961 Colonoscopy 1961 Colorectal Cancer Screening 1961 FIT DNA/Cologuard 1961 FIT 1961 FOBT 1961 Sigmoidoscopy 1961 Diabetes: Foot Exam 11/03/1971 Zoster Vaccines (1 of 2) 11/03/2011 Influenza Vaccine (#1) 2025 , 05/24/2023, 07/08/2020, Additional history exists Diabetes: Urine Protein Screening 05/02/2025 05/02/2024, 07/06/2023, 11/05/2021 Lipid Panel 05/02/2025 05/02/2024, 02/2024, 12/23/2022, Additional history exists Diabetes: Hemoglobin A1C 06/12/2025 025, 10/31/2024, 05/02/2024, Additional history exists Depression Monitoring 09/10/2025 03/13/2025, 025 Alcohol/Substance Use Screening 10/31/2025 10/31/2024 Disability Screening 10/31/2025 10/31/2024 SDOH Screening 10/31/2025 10/31/2024 Tobacco Screening 03/13/2026 03/13/2025 Eye Exam 11/16/2026 11/16/2024, 10/27, 11/16/2024, Additional history exists DTaP/Tdap/Td Vaccines (2 - Td or Tdap) 06/01/2029 06/01/2019 RSV Patients and Patients Aged 60 years or older (1 - 1-dose 75+ series) 2036 Pneumococcal Vaccine: 50+ Years Completed 01/22/2023 Hepatitis B Vaccines Completed 11/25/2023, 05/24/2023, 01/22/2023 HIV Screening Completed 05/02/2024, 11/27, 11/05/2021 Hepatitis C Screening Completed 05/02/2024, 023 COVID-19 Vaccine Completed 05/10/2024, , 12/23/2022, Additional history exists HIB Vaccines Aged Out No longer eligi ble based on patient's age to complete this topic HPV Vaccines Aged Out No longer eligi ble based on patient's age to complete this topic Hepatitis A Vaccines Aged Out No long er eligible based on patient's age to complete this topic IPV Vaccines Aged Out No longer eligi ble based on patient's age to complete this topic Meningococcal B Vaccine Aged Out No l onger eligible based on patient's age to complete this topic Meningococcal Vaccine Aged Out No sri brenda eligible based on patient's age to complete this topic RSV under 20 months Aged Out No longe r eligible based on patient's age to complete this topic Rotavirus Vaccines Aged Out No longer eligible based on patient's age to complete this topic Procedures Procedure Name Priority Date/Time Associated Diagnosis Comments TSH Routine 04/12/2025 4:28 PM EDT T4, FREE Routine 04/12/2025 4:28 PM EDT POCT GLYCATED HEMOGLOBIN, TOTAL Routine 03/13/2025 11:02 AM EDT Type 2 diabetes mellitus without complication, without long-term current use of insulin ([facility]) POCT GLUCOSE Routine 03/13/2025 11:01 AM EDT Type 2 diabetes mellitus without complication, without long-term current use of insulin ([facility]) POCT INFLUENZA B (ID NOW RAPID MOLECULAR) Routine 02/16/2025 2:36 PM EDT Sore throat POCT INFLUENZA A (ID NOW RAPID MOLECULAR) Routine 02/16/2025 2:36 PM EDT Sore throat POCT RAPID STREP A Routine 02/16/2025 2: 36 PM EDT Sore throat POCT RAPID COVID ANTIGEN Routine 02/16/2025 2:36 PM EDT Sore throat HEPATITIS C AB W/REFL TO HCV RNA, QN, PCR Routine 05/02/2024 9:57 AM EST Annual physical exam HIV 1/2 ANTIGEN/ANTIBODY, FOURTH GENERATION W/RFL Routine 05/02/2024 9:57 AM EST Annual physical exam ALBUMIN, RANDOM URINE W/CREATININE Routine 05/02/2024 9:57 AM EST Annual physical exam LIPID PANEL, STANDARD Routine 05/02/2024 9:57 AM EST Annual physical exam from Last 3 Months or Most Recently Relevant to Health Maintenance Results * TSH (04/12/2025 4:28 PM EDT) Thyroid Stimulating Hormone 0.42 0.32 - 4.0 uIU/mL [facility] Comment:TSH 3rd Generation ( [facility]) 04/12/2025 4:28 PM EDT 04/12/2025 4:28 PM EDT us Generic External Data Provider LAB BLOOD ORDERAB LES Final Result [facility] [address] [place] [address] [phone] * T4, Free (04/12/2025 4:28 PM EDT) Free T4 (Free Thyroxine) 0.93 0.71 - 1.85 ng/dL [facility] 04/12/2025 4:28 PM EDT 04/12/2025 4:28 PM EDT Generic External Data Provider LAB BLOOD ORDERAB LES Final Result [facility] [address] [place] [phone] * POCT Hgb A1c (03/13/2025 11:02 AM EDT) [facility] Hemoglobin A1C 5.6 4.0 - 5.7 % QC Media Lot # [id number] Lot# Expiration Date [id number] Blood 03/13/2025 11:0 2 AM EDT Kristen Soto MD POINT OF CARE JACQUELINE T ENTER/EDIT ORDERABLES Final Result * POCT Glucose (03/13/2025 11:01 AM EDT) Pathologist [facility] Glucose Blood, POC 123 60 - 200 mg/dL [employer] Media Lot # [id number] Lot# Expiration Date [id number] Blood Capillary blood specimen / Unknown 03/13/2025 11:01 AM EDT Kristen Soto MD POINT OF CARE JACQUELINE T ENTER/EDIT ORDERABLES Final Result * Influenza B (ID NOW Rapid Molecular) (02/16/2025 2:36 PM EDT) Pathologist [facility] Influenza B Negative Negative, Indeterminate [facility] Swab 02/16/2025 2:36 PM EDT Mani May MD POINT OF CARE TEST ENTER/EDIT OR DERABLES Final Result Performing Organization Address [facility]/ZIP Co de Phone Number [facility] [address] [place] [phone] * Influenza A (ID NOW Rapid Molecular) (02/16/2025 2:36 PM EDT) [facility] Influenza A Negative Negative, Indeterminate [facility] Swab 02/16/2025 2:36 PM EDT us Mani May MD POINT OF CARE TEST ENTER/EDIT OR DERABLES Final Result Performing Organization Address [facility] Co de Phone Number [facility] [address] [place] [phone] * POCT Rapid COVID Ag (02/16/2025 2:36 PM EDT) [facility] Rapid COVID Ag Negative [facility] Swab 02/16/2025 2:36 PM EDT us Mani May MD POINT OF CARE TEST ENTER/EDIT OR DERABLES Final Result Performing Organization Address [facility] Co de Phone Number [facility] [address] [place] [address] [phone] * POCT rapid strep A manually resulted (02/16/2025 2:36 PM EDT) [facility] [place] [facility] Rapid Strep A Screen Negative Negative, None Detected [facility] Swab 02/16/2025 2:36 PM EDT us Mani May MD POINT OF CARE TEST ENTER/EDIT OR DERABLES Final Result Performing Organization Address [facility] Co de Phone Number [facility] [address] [place] [address] [phone] * (ABNORMAL) Albumin, Random Urine W/Creatinine (05/02/2024 9:57 AM EST) Creatinine, Urine 203.44 mg/dL [facility] Microalbumin Urine 161.0 mg/L [facility] Microalbum Creatinine Ratio Ur 79.1(H) <30 ug/mg cr [facility] Comment:Albumin/Creatinine R at Reference Ranges: Normal: < 30 ug/mg creatinine Microalbuminuria: 30 - 300 ug/mg creatinineClinical Albuminuria: > 300 ug/mg creatinine Urine (Urine, Random) 05/02/2024 9:57 AM EST 05/02/2024 11:11 AM EST Kristen Soto MD LAB URINE ORDERAB LES Final Result Performing Organization Address [facility]/ZIP Co de Phone Number [facility] [address] [place] [address] [phone] * Hepatitis C Antibody with Reflex to HCV, RNA, Quantitative, Real-Time PCR (05/02/2024 9:57 AM EST) Pathologist [facility] Hepatitis C Antibody Nonreactive Nonreactive [facility] Comment:Antibodies to HCV no t detected; does not exclude early acuteHCV infection. Blood Venous blood specimen / Unknown 05/02/2024 9:57 AM EST 05/02/2024 11:28 AM EST us Kristen Soto MD LAB BLOOD ORDERAB LES Final Result Performing Organization Address [facility] Co de Phone Number [facility] [address] [place] [address] [phone] * HIV-1/2 Antigen and Antibodies, Fourth Generation, with Reflexes (05/02/2024 9:57 AM EST) Pathologist [facility] HIV AB/AG Nonreactive Nonreactive [facility] Comment:HIV-1 p24 Ag and/or HIV-1/HIV-2 Ab not detected.A test result that is nonreactive does not exclude thepossibility of exposure to or infection with HIV-1 and/orHIV-2. Nonreactive results in this assay for individualswith prior exposure to HIV-1 and/or HIV-2 may be due toantigen and antibody levels that are below the limit ofdetection of this assay.The [employer] HIV Ag/Ab Combo assay result andsupplemental assay results should be interpreted inconjunction with the patient's clinical presentation,history and other laboratory results. If the results areinconsistent with clinical evidence, additional testing issuggested to confirm the result. Blood Venous blood specimen / Unknown 05/02/2024 9:57 AM EST 05/02/2024 11:28 AM EST us Kristen Soto MD LAB BLOOD ORDERAB LES Final Result [facility] [address] [place] [address] [phone] * (ABNORMAL) Lipid Panel, Standard (05/02/2024 9:57 AM EST) Triglycerides 182(H) <150 mg/dL [facility] Comment:Desirable Triglyceri de: less than 150 mg/dLBorderline High Triglyceride 150-199 mg/dLHigh Triglyceride: 200-499 mg/dLVery High Triglyceride: greater than or equal to 5OO mg/dL Cholesterol 145 <200 mg/dL [facility] Comment:Desirable Cholestero l: less than 200 mg/dLBorderline High Cholesterol: 200-239 mg/dLHigh Cholesterol: greater than 239 mg/dL LDL Cholesterol Calculated 59 <100 mg/dL [facility] Comment:Desirable LDL: less than 100 mg/dLNear Optimal/Above Optimal LDL: 110- 129 mg/dLBorderline High LDL: 130-159 mg/dLHigh LDL: 160-189 mg/dLVery High LDL: greater than or equal to 190 mg/dL HDL Cholesterol 50 >40 mg/dL [facility] Comment:Desirable HDL: great er than 40 mg/dL Note: This HDL assay may give artificially low results in patients with liver disease. Blood Venous blood specimen / Unknown 05/02/2024 9:57 AM EST 05/02/2024 11:28 AM EST Kristen Soto MD LAB BLOOD ORDERAB LES Final Result [facility] [address] [place] [phone] from Last 3 Months or Most Recently Relevant to Health Maintenance Insurance [facility] CARE < 65 [place] [id number] Care Teams Glass Embosser Relationship Specialty Start Date End Date Kristen Cedeno MD [address] [place] [phone] PCP - General Internal Medicine 11/27/22
--- OUTSIDE RECORDS SUMMARY | 2025-04-12 19:22 | XMS_ITS | Encounter Summary ---
Author Organization [employer] Address [address] [facility] 7t [place] [address] Care Team Providers Care Manager Utilities Name Role Phone Kristen Cedeno MD Primary Care Pro vider Encounter Details Date Type Department Care Team ([facility] st Contact Info) Description 12/15/2024 Orders Only [facility] MEDICINE [address] [place] [address] Krisetn Cedeno MD [address] [place] [address] Social History Tobacco Use Types Packs/Day Years [...] is your housing situation today? I have venkateshsarthak garcia 02/29/[address] you [...] Description 04/20/2025 11:30 AM EDT Office Visit [facility] OPTOMETRY [address] [place] [address] Temo, Lynne, OD [address] [place] [address] 06/08/2025 1:30 PM EST Office Visit [facility] MEDICINE [address] [place] [address] Kristen Cedeno MD [address] [place] [address] documented as of this encounter Visit Diagnoses Not on filedocumented in this encounter Additional Health Concerns Assessment Noted Time PHQ-9 Depression Total Score: 8 02/29/20 24 9:34 AM EDT documented as of this encounter Care Teams Manager Utilities Relationship Specialty Start Date End Date Kristen Cedeno MD [address] [place] [address] PCP - General Internal Medicine 11/27/22 documented as of this encounter
--- OUTSIDE RECORDS SUMMARY | 2025-04-12 19:22 | XMS_ITS | Encounter Summary ---
Author Organization [employer] Address [address] [facility] 7t [place] [address] Care Team Providers Care Cook Soup Name Role Phone Kristen Cedeno MD Primary Care Pro vider Encounter Details Date Type Department Care Team ([facility] Contact Info) Description 04/12/2025 Orders Only GENERIC EXTERNAL DATA DEPARTMENT Provider, Generic External Data Social History Tobacco Use Types Packs/Day Years [...] your housing situation today? I have venkatesh jose 02/29/[address] you li [...] Description 04/20/2025 11:30 AM EDT Office Visit [facility] OPTOMETRY [address] [place], [place] [phone] Temo, Lynne, OD [address] [place] [address] 06/08/2025 1:30 PM EST Office Visit [facility] MEDICINE [address] [place] [address] Kristen Cedeno MD [address] [place] [address] documented as of this encounter Procedures Procedure Name Priority Date/Time Associated Diagnosis Comments TSH Routine 04/12/2025 4:28 PM EDT T4, FREE Routine 04/12/2025 4:28 PM EDT documented in this encounter Results * TSH (04/12/2025 4:28 PM EDT) Thyroid Stimulating Hormone 0.42 0.32 - 4.0 uIU/mL [facility] Comment:TSH 3rd Generation ( [facility]) 04/12/2025 4:28 PM EDT 04/12/2025 4:28 PM EDT us Generic External Data Provider LAB BLOOD ORDERAB LES Final Result Performing Organization Address City/State/[facility] Co de Phone Number [facility] [address] [place] [address] [phone] * T4, Free (04/12/2025 4:28 PM EDT) Free T4 (Free Thyroxine) 0.93 0.71 - 1.85 ng/dL [facility] 04/12/2025 4:28 PM EDT 04/12/2025 4:28 PM EDT us Generic External Data Provider LAB BLOOD ORDERAB LES Final Result Performing Organization Address [facility] de Phone Number [facility] [address] [place] [address] [phone] documented in this encounter Visit Diagnoses Not on filedocumented in this encounter Additional Health Concerns Assessment Noted Time PHQ-9 Depression Total Score: 17 025 11:42 AM EDT documented as of this encounter Care Teams Cook Soup Relationship Specialty Start Date End Date Kristen Cedeno MD [address] [place] [address] PCP - General Internal Medicine 11/27/22 documented as of this encounter
--- OUTSIDE RECORDS SUMMARY | 2025-04-12 19:22 | XMS_ITS | Encounter Summary ---
Author Organization [employer] Address [address] [facility] 7t [place] [address] Care Team Providers Care Meat Stocker Name Role Phone Carlotta Paulson FANY Primary Care Provider [phone] Kristen Cedeno MD Primary Care Pro vider Encounter Details Date Type Department Care Team (Late st Contact Info) Description 07/29/2022 Orders Only [facility] MEDICINE [address] [place] [address] [phone] Sarah Hwang LPN Social History Tobacco Use [...] Description 04/20/2025 11:30 AM EDT Office Visit [facility] OPTOMETRY [address] [place] [address] Lynne Plascencia, OD [address] [place], [place] [phone] 06/08/2025 1:30 PM EST Office Visit [facility] MEDICINE [address] [place], [place] [phone] Kristen Cedeno MD [address] [place], [place] [phone] documented as of this encounter Visit Diagnoses Not on filedocumented in this encounter Care Teams Meat Stocker Relationship Specialty Start Date End Date Carlotta Paulson FNP [address] [place] [phone] PCP - General Family Medicine 02/22/22 11/26/22 Kristen Cedeno MD [address] [place] [address] PCP - General Internal Medicine 11/27/22 documented as of this encounter
--- OUTSIDE RECORDS SUMMARY | 2025-04-12 19:22 | XMS_ITS | Encounter Summary ---
Author Organization [employer] Address [address] [facility] [address] 7t [place] [address] Care Team Providers Care Warp Spooler Name Role Phone Kristen Cedeno MD Primary Care Pro vider Reason for Visit * Reason Comments Med Refill Encounter Details Date Type Department Care Team ([facility] st Contact Info) Description 06/22/2023 Refill [facility] [address] [place] [phone] Elena Mcfarlane MD [address] [place] [address] Social History Tobacco Use Types Packs/Day Years Used Date Smoking Tobacco: Never Passive Smoke Exposure: Never Smokeless Tobacco: Never Alcohol Use Standard Drinks/Week Comments Not Currently 0 (1 standard drink = 0.6 oz pur e alcohol) Depression Answer Date Recorded Patient Health Questionnaire-9 Score 10 12/23/2022 Housing Stability Answer Date Recorded What is your housing situation today? I have venkatesh garcia 04/12/[address] you li ve. Do you have problems with any of the following? None of the above 04/12/2023 Food Insecurity Answer Date Recorded Within the past 12 months, y ou worried that your food would run out before you got money to buy more: Never True 04/12/2023 Within the past 12 months,th e food you bought just didn't last and you didn't have enough money to get more: Never True Transportation Answer Date Recorded In the past 12 months, has l ack of transportation kept you from medical appts, meetings, work or from getting things needed for daily living? No 04/12/2023 Utilities Answer Date Recorded In the past 12 months, has t he electric, gas, oil or water company threatened to shut off services in your home? No 04/12/2023 Depression Answer Date Recorded Patient Health Questionnaire-2 Score 3 12/23/2022 Sex and Gender Information Value Date Recorded Sex Assigned at Male 04/27/2022 10:35 AM EDT Legal Sex Male 10:35 AM EDT Gender Identity Male 04/27/2022 10:35 AM EDT Sexual Orientation Straight 04/27/2022 10 :35 AM EDT documented as of this encounter Plan of Treatment Upcoming Encounters Date Type Department Care Team (Late st Contact Info) Description 04/20/2025 11:30 AM EDT Office Visit [facility] OPTOMETRY [address] [place] [address] Temo, Lynne, OD [address] [place] [address] 06/08/2025 1:30 PM EST Office Visit [facility] MEDICINE [address] [place] [address] Kristen Cedeno MD [address] [place] [phone] documented as of this encounter Visit Diagnoses Not on filedocumented in this encounter Additional Health Concerns Assessment Noted Time PHQ-9 Depression Total Score: 10 023 10:56 AM EDT documented as of this encounter Care Teams Warp Spooler Relationship Specialty Start Date End Date Kristen Cedeno MD [address] [place] [address] PCP - General Internal Medicine 11/27/22 documented as of this encounter
--- OUTSIDE RECORDS SUMMARY | 2025-04-12 19:22 | XMS_ITS | Encounter Summary ---
Author Organization [employer] Address [address] [facility] [address] [place] [address] Care Team Providers Care Orthotics Prosthetics Technician Name Role Phone Carlotta Paulson Primary Care Provider [phone] Kristen Cedeno MD Primary Care Pro vider Reason for Visit * Reason Onset Date Comments Other 11/25/2022 Encounter Details Date Type Department Care Team (Late st Contact Info) Description 11/25/2022 Telephone [facility] MEDICINE [address] [place] [address] Carlotta Paulson FNP [address] [place], [place] [phone] Other Social History Tobacco Use Types Packs/Day Years Used Date Smoking Tobacco: Never Assessed Sex and Gender Information Value Date Recorded Sex Assigned at Male 04/27/2022 10:35 AM EDT Legal Sex Male 10:35 AM EDT Gender Identity Male 04/27/2022 10:35 AM EDT Sexual Orientation Straight 04/27/2022 10 :35 AM EDT documented as of this encounter Miscellaneous Notes * Telephone Encounter - Griselda Tinajero RN - 12/07/2022 11:13 AM EDT Tc to [facility], they stated pt is discharged as there was no signatures. They stated that pt needs to be seen and after he is seen, we have to send a new referral, what services he needs and why, a facesheet, med list, immunizations, office notes, and a physician face to face sheet to be faxed. RNs will fax info after appt. * Telephone Encounter - Alka Brown - 11/26/2022 10:43 AM EDT [facility]. Patient has never been seen with Dr. Paulson. Advised will forward another message and Facility advised that without orders pt is going to be discharge from services and denied services. * Telephone Encounter - Cristy Cummings - 11/25/2022 2:45 PM EDT Tc from [facility] requesting a call back, in regards to PCP signing VNA orders. Patienthas never been seen with Dr. Paulson. Last visit was with Dr. Carbajal via tele on 01/08/22. documented in this encounter Plan of Treatment Upcoming Encounters Date Type Department Care Team (Late st Contact Info) Description 04/20/2025 11:30 AM EDT Office Visit [facility] OPTOMETRY [address] [place] [address] Temo, Lynne, OD [address] [place] [address] 06/08/2025 1:30 PM EST Office Visit [facility] MEDICINE [address] [place] [address] Kristen Cedeno MD [address] [place] [address] documented as of this encounter Visit Diagnoses Not on filedocumented in this encounter Care Teams Orthotics Prosthetics Technician Relationship Specialty Start Date End Date Carlotta Paulson FNP [address] [place] [address] PCP - General Family Medicine 02/22/22 11/26/22 Kristen Cedeno MD [address] [place] [phone] PCP - General Internal Medicine 11/27/22 documented as of this encounter
--- OUTSIDE RECORDS SUMMARY | 2025-04-12 19:22 | XMS_ITS | Data Portability ---
Author Organization [facility] - [facility], Allergy Address [address] [address] Assessment Encounter Date Assessment Date Assessment LastModified by Organization Details LastModified Time 02/16/2024 02/16/2024 Patient has a left parotid mass that I recommend we obtain tissue sampling. Given its location I would like to have ultrasound-guid ed needle aspiration biopsy performed at a nearby radiology center. My office will assist in arranging for this procedure. We reviewed the potential risks not limited to bleeding, numbness, swelling and facial weakness. We discussed the potential diagnoses including malignancy, benign process, insufficient specimen or non-diagnostic. Typically pathology results will become available within the next week. We may review results and develop a treatment plan with a telehealth or an in person visit if they request. [email or web address] Not available 02/15/2024 15:35:18 Plan of Treatment Reminders Order Date Submit Date Provider Last Modified By Organization Details Last Modified Time Details Appointments None recorded. Lab None recorded. Referral None recorded. Procedures None recorded. Surgeries fine needle aspiratio n; with imaging guidance (SURG) 2023 024 [facility], [address] [place], [address], 11:42:51 Imaging None recorded. Medication Orders None recorded. Patient TargetsNo targets recorded. Patient InstructionsNo instructions recorded. Reason for Referral None Reported. Results Created Date Observation Date Name Description Value Unit Range Abnormal Flag Note LastModifiedBy Organization Detail LastModifiedTime 02/15/20 24 02/17/2021 imagi ng/di agnos tic resul t No observ ation record ed. [email or web address] Not Available 19:58:55 02/21/20 24 12/20/2023 CT, neck, soft tissu e, w/ contr ast No observ ation record ed. [email or web address] Not Available 01/27 09:27:52 Result Notes None recorded. 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 Medical Equipment None Reported. Allergies Allergen ID Allergen Name Allergen Category Reaction Reaction Severity Criticality Documentation Date Start Date Code Code System Note Provider Name and Address Organization Details Recorded Time 874867 aspirin medicatio n other Not available Not available 11/09/2023 1191 RxNorm React ion: Unkno wn; Not Available [facility] 4 01:21:22 322783 Product containin g penicilli n (product) medicatio n other Not available Not available 11/09/2023 69637 8001 SNOMED React ion: Unkno wn; Not Available [facility] 4 01:21:23 Medications Name Sig Start Date Stop Date Status Note LastModified by Organization Details LastModified Time medbox status USE DIRECTED active Not Available Not Available No t Available losartan 50 mg tablet TAKE 1 TABLET BY MOUTH EVERY EVENING active Not Available Not Available No t Available atorvastat in 40 mg tablet TAKE 1 TABLET BY MOUTH EVERYDAY AT NOON active Not Available Not Available No t Available metformin 500 mg tablet TAKE 1 TABLET BY MOUTH TWICE DAILY IN THE MORNING AND IN THE EVENING WITH FOOD active Not Available Not Available No t Available paroxetine 10 mg tablet TAKE 1 TABLET BY MOUTH EVERYDAY AT NOON active Not Available Not Available No t Available benztropin e 0.5 mg tablet active Medicatio n ID: [id number] Br and Name: benztropi ne Send Method: E-Prescri bed Subs Allowed: subs OK Medica tionGener icName: benztropi ne Not Available Not Available Not Available clindamyci n HCl 300 mg capsule active Medicatio n ID: [id number] Br and Name: clindamyc in HCl Send Method: E-Prescri bed Subs Allowed: subs OK Specia l Instructi on: TAKE 1 CAPSULE BY MOUTH EVERY 6 HOURS UNTIL FINISHED Medicatio nGenericN mario: clindamyc in HCl Not Available Not Available Not Available azithromyc in 250 mg tablet TAKE 2 TABLETS BY MOUTH ON DAY 1, THEN TAKE 1 TABLET DAILY ON DAYS 2-5 active Not Available Not Available No t Available senna 8.6 mg tablet active Medicatio n ID: [id number] Br and Name: senna Sen d Method: E-Prescri bed Subs Allowed: subs OK Specia l Instructi on: TAKE 2 TABLETS BY MOUTH EVERY DAY Medic ationGene ricName: senna Not Available Not Available Not Available polyvinyl alcohol 1.4 % eye drops INSTILL 1 DROP IN THE LEFT EYE THREE TIMES DAILY IN THE MORNING, AT NOON, AND AT BEDTIME NEEDED DRY EYES active Not Available Not Available No t Available ondansetro n HCl 4 mg tablet TAKE 1 TABLET BY MOUTH EVERY 8 HOURS NEEDED FOR NAUSEA AND VOMITING FOR UP TO 10 DAYS active Not Available Not Available No t Available prednisone 20 mg tablet active Medicatio n ID: [id number] Br and Name: prednison e Send Method: E-Prescri bed Subs Allowed: subs OK Specia l Instructi on: TAKE 1 TABLET BY MOUTH EVERY DAY Medic ationGene ricName: prednison e Not Available Not Available Not Available clindamyci n HCl 150 mg capsule active Medicatio n ID: [id number] Br and Name: clindamyc in HCl Send Method: E-Prescri bed Subs Allowed: subs OK Medica tionGener icName: clindamyc in HCl Not Available Not Available Not Available phenytoin sodium extended 100 mg capsule TAKE 2 CAPSULES BY MOUTH TWICE DAILY AT NOON AND BEDTIME active Not Available Not Available No t Available omeprazole 40 mg capsule,de layed release TAKE 1 CAPSULE BY MOUTH EVERYDAY AT NOON BEFORE BREAKFAST active Not Available Not Available No t Available acetaminop hen 500 mg tablet TAKE 2 TABLETS BY MOUTH EVERY 6 HOURS NEEDED FOR MODERATE PAIN OR FEVER active Not Available Not Available No t Available carvedilol 3.125 mg tablet TAKE 1 TABLET BY MOUTH TWICE DAILY AT NOON AND IN THE EVENING active Not Available Not Available No t Available lidocaine- prilocaine 2.5 %-2.5 % topical cream APPLY TOPICALLY TO AFFECTED AREA(S) ONCE DAILY NEEDED FOR MILD PAIN active Not Available Not Available No t Available levothyrox ine 25 mcg tablet active Medicatio n ID: [id number] Br and Name: levothyro xine Send Method: E-Prescri bed Subs Allowed: subs OK Medica tionGener icName: levothyro xine Not Available Not Available Not Available alprazolam 0.25 mg tablet TAKE 1 TABLET BY MOUTH FOR 1 DOSE active Not Available Not Available No t Available cyanocobal eugene (vit B-12) 500 mcg tablet TAKE 1 TABLET BY MOUTH EVERYDAY AT NOON active Not Available Not Available No t Available baclofen 10 mg tablet TAKE 1 TABLET BY MOUTH THREE TIMES DAILY IN THE MORNING, AT NOON, AND AT BEDTIME NEEDED FOR MUSCLE SPASMS active Not Available Not Available No t Available hydrocorti sone 1 % topical cream active Medicatio n ID: [id number] Br and Name: hydrocort isone Sen d Method: E-Prescri bed Subs Allowed: subs OK Specia l Instructi on: APPLY A THIN LAYER TOPICALLY AFFECTED AREA(S) TWICE DAILY Med icationGe nericName : hydrocort isone Not Available Not Available Not Available gemfibrozi l 600 mg tablet active Medicatio n ID: [id number] Br and Name: gemfibroz il Send Method: E-Prescri bed Subs Allowed: subs OK Medica tionGener icName: gemfibroz il Not Available Not Available Not Available levothyrox ine 50 mcg tablet TAKE 1 TABLET BY MOUTH EVERY MORNING active Not Available Not Available No t Available metformin 1,000 mg tablet TAKE 1 TABLET BY MOUTH TWICE DAILY IN THE MORNING AND IN THE EVENING WITH MEALS active Not Available Not Available No t Available flecainide 50 mg tablet TAKE 1 TABLET BY MOUTH TWICE DAILY AT NOON AND BEDTIME active Not Available Not Available No t Available losartan 25 mg tablet active Medicatio n ID: [id number] Br and Name: losartan Send Method: E-Prescri bed Subs Allowed: subs OK Specia l Instructi on: TAKE 1 TABLET BY MOUTH EVERY EVENING M edication GenericNa me: losartan Not Available Not Available Not Available omeprazole 20 mg capsule,de layed release active Medicatio n ID: [id number] Br and Name: omeprazol e Send Method: E-Prescri bed Subs Allowed: subs OK Specia l Instructi on: TAKE 1 CAPSULE BY MOUTH TWICE DAILY AT NOON AND IN THE EVENING M edication GenericNa me: omeprazol e Not Available Not Available Not Available codeine 10 mg-guaifen esin 100 mg/5 mL oral liquid active Medicatio n ID: [id number] Br and Name: codeine-g uaifenesi n Send Method: E-Prescri bed Subs Allowed: subs OK Specia l Instructi on: TAKE 5 ML BY MOUTH EVERY 6 HOURS NEEDED FOR COLD SYMPTOMS Medicatio nGenericN mario: codeine-g uaifenesi n Not Available Not Available Not Available polyethyle ne glycol 3350 17 gram/dose oral powder active Medicatio n ID: [id number] Br and Name: polyethyl vandana glycol 3350 Send Method: E-Prescri bed Subs Allowed: subs OK Specia l Instructi on: TAKE 17 GM MIXED IN 8 OUNCES OF WATER, COFFEE OR TEA ONCE DAILY Med icationGe nericName : polyethyl vandana glycol 3350 Not Available Not Available Not Available carbidopa 25 mg-levodop a 100 mg tablet TAKE 1 TABLET BY MOUTH THREE TIMES DAILY WITH MEALS active Not Available Not Available No t Available doxycyclin e hyclate 100 mg tablet active Medicatio n ID: [id number] Br and Name: doxycycli ne hyclate S end Method: E-Prescri bed Subs Allowed: subs OK Specia l Instructi on: TAKE 1 TABLET BY MOUTH TWICE DAILY UNTIL FINISHED Medicatio nGenericN mario: doxycycli ne hyclate Not Available Not Available Not Available loratadine 10 mg tablet active Medicatio n ID: [id number] Br and Name: loratadin e Send Method: E-Prescri bed Subs Allowed: subs OK Specia l Instructi on: TAKE 1 TABLET BY MOUTH EVERY DAY NEEDED ALERGIES Medicatio nGenericN mario: loratadin e Not Available Not Available Not Available Ventolin HFA 90 mcg/actuat ion aerosol inhaler INHALE 2 PUFFS BY MOUTH EVERY 6 HOURS NEEDED FOR WHEEZING OR SHORTNESS OF BREATH FOR UP TO 10 DAYS active Not Available Not Available No t Available Alcohol Prep Pads USE FOUR TIMES DAILY OR DIRECTED active Not Available Not Available No t Available cholecalci ferol (vitamin D3) 25 mcg (1,000 unit) tablet TAKE 1 TABLET BY MOUTH EVERYDAY AT NOON active Not Available Not Available No t Available diclofenac 1 % topical gel APPLY 1 GRAM TOPICALLY TO AFFECTED AREA(S) THREE TIMES DAILY IN THE MORNING, AT NOON, AND AT BEDTIME NEEDED FOR PAIN MUSCLE active Not Available Not Available No t Available cholecalci ferol (vitamin D3) 50 mcg (2,000 unit) capsule active Medicatio n ID: [id number] Br and Name: cholecalc iferol (vitamin D3) Send Method: E-Prescri bed Subs Allowed: subs OK Specia l Instructi on: TAKE 1 CAPSULE BY MOUTH EVERYDAY AT NOON [facility] cationGen ericName: cholecalc iferol (vitamin D3) Not Available Not Available Not Available lacosamide 100 mg tablet TAKE 1 TABLET BY MOUTH TWICE DAILY AT NOON AND IN THE EVENING active Not Available Not Available No t Available Mucus Relief ER 600 mg tablet, extended release TAKE 1 TABLET BY MOUTH TWICE DAILY DO NOT BREAK, CRUSH, DISSOLVE OR CHEW active Not Available Not Available No t Available Xarelto 20 mg tablet TAKE 1 TABLET BY MOUTH EVERY EVENING WITH FOOD active Not Available Not Available No t Available OneTouch Verio test strips TEST BLOOD SUGAR FOUR TIMES DAILY OR DIRECTED active Not Available Not Available No t Available Trulicity 0.75 mg/0.5 mL subcutaneo us pen injector INJECT ONE PEN (=0.75MG) SUBCUTANE OUSLY ONCE A WEEK DIRECTED active Not Available Not Available No t Available Reguloid (aspartame ) 3 gram/5.8 gram oral powder MIX 1 TEASPOONF UL IN WATER AND DRINK TWICE DAILY active Not Available Not Available No t Available Vitals Date Recorded Body height Body mass index (BMI) Body weight Provider Name and Address Organization Details Last Updated DateTime 02/16/2024 175.26 cm 34.4 kg/m2 691444.02 g Vicky Parra [place] - [facility] 02/16/2024 15:52:15 Social History None recorded. Functional Status None recorded. Mental Status None recorded. Family History Nothing Reported. Medical History Condition Response Anxiety Y Hypertension Y Depression Y Asthma Y Past Encounters Encounter ID Performer Location Encounter Start Date Encounter Closed Date Diagnosis/Indication Diagnosis SNOMED-CT Code Diagnosis ICD10 Code Diagnosis IMO Codes Diagnosis Note [id number] GUILHERME MARTINEZ MD [facility] [address] [address] 02/16/2024 15:00:00 02/16/2024 16:22:24 Neoplasm of parotid gland 914887841 D49.0 R59.0 The left parotid lesion is too small for me to palpate. US guided FNA is requested. He is generally a poor surgery candidate given his comorbid medical conditions . Health Concerns Section Related Observation LastModified by Organization Detai ls LastModified Time None Recorded Concern Status LastModified by Organization Details LastModified Time None Recorded Advance Directives Directive None Recorded Payers Insurance Date Sequence Insurance Name Policy Number Policy Luque Covered Member ID Luque Member ID Guarantor Name 04/24/2024 2 [place] Vinnie Salcido [id number] Vinnie Salcido 02/16/2024 1 [facility] - DOS ON OR AFTER 2022 - MEDICARE ADVANTAGE [place] (MEDICARE REPLACEMENT/A DVANTAGE - PPO) Vinnie Salcido [id number] Vinnie Salcido Notes Date Note Type Note Provider Name and Address Organization Details Recorded Time 02/16/2024 text/html ROS as noted in the HPI [place] - niece translatingparotid masspatient cannot feel the mass and does not know how long it has been present 12/17/23 MR neck w/wo Rayus - left parotid 52a02ft mass pmhx - parkinsons, ND, Afib on anticoagulation, DM, HTN, asthma, seizures GUILHERME MARTINEZ MD [address] [place] [address], [place], [address], [facility] - [facility] 02/16/2024 16:21:54
--- OUTSIDE RECORDS SUMMARY | 2025-04-12 19:22 | XMS_ITS | Clinical Summary ---
Author Organization [facility] Address [address] [place], [place] [id number] Phone Care Team Providers Care S Iron Worker Name Role Phone Pcp, Unknown Primary Care [...] file Medical Devices Not on file [place] [address] [place] [address] [employer] MEDICARE REPLACEMENT [place] [id number] MEDICARE REPLACEMENT MEDICARE REPLACEMENT MEDICARE [place] [address] [place] [address] [employer] MEDICARE [place] [address] [address] CARE MEDICARE REPLACEMENT Care Teams S Iron Worker Relationship Specialty Start Date End Date Pcp, Unknown PCP - General 04/20/23 Additional Source Comments The information contained in this document represents components of the legal health record. It is not the complete legal health record.[facility]
--- OUTSIDE RECORDS SUMMARY | 2025-04-12 19:22 | XMS_ITS | Encounter Summary ---
Author Organization [employer] Address [address] [facility] [address] [place] [address] Care Team Providers Care Bath House Attendant Name Role Phone Carlotta Paulson FANY Primary Care Provider [phone] Kristen Cedeno MD Primary Care Pro vider Encounter Details Date Type Department Care Team (Late st Contact Info) Description 07/03/2022 Orders Only [facility] [address] [place], [place] [phone] Lillie Rogers LPN Social History Tobacco Use Types Packs/Day [...] Department Care Team (Late Contact Info) Description 04/20/2025 11:30 AM EDT Office Visit [facility] [address] [place] [address] Lynne Plascencia, OD [address] [place], [place] [phone] 06/08/2025 1:30 PM EST Office Visit [facility] [address] [place], [place] [phone] Kristen Cedeno MD [address] [place], [place] [phone] documented as of this encounter Visit Diagnoses Not on filedocumented in this encounter Care Teams Bath House Attendant Relationship Specialty Start Date End Date Carlotta Paulson FNP [address] [place] [phone] PCP - General Family Medicine 02/22/22 11/26/22 Kristen Cedeno MD [address] [place] [address] PCP - General Internal Medicine 11/27/22 documented as of this encounter
== END 2025-04-12 16:11 | disposition home or self-care (01) ==
PROVIDERS: PCP Student in an Organized Health Care Education/Training Program; Visit Provider Student in an Organized Health Care Education/Training Program
DX: E04.2 Nontoxic multinodular goiter (principal); E03.9 Hypothyroidism, unspecified
CPT/HCPCS: 99213

== ENCOUNTER 2025-04-24 11:54 | Outpatient (REF) | payer OTHER, SELFPAY ==
--- OUTSIDE RECORDS SUMMARY | 2025-04-25 15:18 | XMS_ITS | Data Portability ---
Author Organization [facility] - [facility], Allergy Address [address] [address] Assessment Encounter Date Assessment Date Assessment LastModified [...] n; with imaging guidance (SURG) 2023 024 [facility], [address] [place], [address], 11:42:51 Imaging None recorded. Medication Orders None [...] contr ast No observ ation record ed. [email or web address] Not Available 01/27 09:27:52 Result Notes None recorded. 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 Medical Equipment None Reported. Allergies Allergen ID Allergen Name Allergen Category Reaction Reaction Severity Criticality Documentation Date Start Date Code Code System Note Provider Name and Address Organization Details Recorded Time 424443 aspirin medicatio n other Not available Not available 11/09/2023 1191 RxNorm React ion: Unkno wn; Not Available [facility] 4 01:21:22 117987 Product containin g penicilli n (product) medicatio n other Not available Not available 11/09/2023 29311 8001 SNOMED React ion: Unkno wn; Not Available [facility] 4 01:21:23 Medications Name Sig Start Date [...] 0.5 mg tablet active Medicatio n ID: [id number] Br and Name: benztropi ne Send Method: E-Prescri bed Subs Allowed: subs OK Medica tionGener icName: benztropi ne Not Available Not Available Not Available clindamyci n HCl 300 mg capsule active Medicatio n ID: [id number] Br and Name: clindamyc in HCl Send [...] 8.6 mg tablet active Medicatio n ID: [id number] Br and Name: senna Sen d Method: [...] 20 mg tablet active Medicatio n ID: [id number] Br and Name: prednison e Send Method: E-Prescri bed Subs Allowed: subs OK Specia l Instructi on: TAKE 1 TABLET BY MOUTH EVERY DAY Medic ationGene ricName: prednison e Not Available Not Available Not Available clindamyci n HCl 150 mg capsule active Medicatio n ID: [id number] Br and Name: clindamyc in HCl Send [...] 25 mcg tablet active Medicatio n ID: [id number] Br and Name: levothyro xine Send Method: [...] % topical cream active Medicatio n ID: [id number] Br and Name: hydrocort isone Sen d Method: E-Prescri bed Subs Allowed: subs OK Specia l Instructi on: APPLY A THIN LAYER TOPICALLY AFFECTED AREA(S) TWICE DAILY Med icationGe nericName : hydrocort isone Not Available Not Available Not Available gemfibrozi l 600 mg tablet active Medicatio n ID: [id number] Br and Name: gemfibroz il Send Method: [...] 25 mg tablet active Medicatio n ID: [id number] Br and Name: losartan Send Method: E-Prescri bed Subs Allowed: subs OK Specia l Instructi on: TAKE 1 TABLET BY MOUTH EVERY EVENING M edication GenericNa me: losartan Not Available Not Available Not Available omeprazole 20 mg capsule,de layed release active Medicatio n ID: [id number] Br and Name: omeprazol e Send Method: E-Prescri bed Subs Allowed: subs OK Specia l Instructi on: TAKE 1 CAPSULE BY MOUTH TWICE DAILY AT NOON AND IN THE EVENING M edication GenericNa me: omeprazol e Not Available Not Available Not Available codeine 10 mg-guaifen esin 100 mg/5 mL oral liquid active Medicatio n ID: [id number] Br and Name: codeine-g uaifenesi n Send Method: E-Prescri bed Subs Allowed: subs OK Specia l Instructi on: TAKE 5 ML BY MOUTH EVERY 6 HOURS NEEDED FOR COLD SYMPTOMS Medicatio nGenericN mario: codeine-g uaifenesi n Not Available Not Available Not Available polyethyle ne glycol 3350 17 gram/dose oral powder active Medicatio n ID: [id number] Br and Name: polyethyl vandana glycol 3350 [...] 100 mg tablet active Medicatio n ID: [id number] Br and Name: doxycycli ne hyclate S end Method: E-Prescri bed Subs Allowed: subs OK Specia l Instructi on: TAKE 1 TABLET BY MOUTH TWICE DAILY UNTIL FINISHED Medicatio nGenericN mario: doxycycli ne hyclate Not Available Not Available Not Available loratadine 10 mg tablet active Medicatio n ID: [id number] Br and Name: loratadin e Send Method: [...] (2,000 unit) capsule active Medicatio n ID: [id number] Br and Name: cholecalc iferol (vitamin D3) Send Method: E-Prescri bed Subs Allowed: subs OK Specia l Instructi on: TAKE 1 CAPSULE BY MOUTH EVERYDAY AT NOON [facility] cationGen ericName: cholecalc iferol (vitamin D3) [...] Updated DateTime 02/16/2024 175.26 cm 34.4 kg/m2 648835.02 g Vicky Parra [place] - [facility] 02/16/2024 15:52:15 Social History None recorded. Functional Status None recorded. Mental Status None recorded. Family History Nothing Reported. Medical History Condition Response Anxiety Y Hypertension Y Depression Y Asthma Y Past Encounters Encounter ID Performer Location Encounter Start Date Encounter Closed Date Diagnosis/Indication Diagnosis SNOMED-CT Code Diagnosis ICD10 Code Diagnosis IMO Codes Diagnosis Note [id number] GUILHERME MARTINEZ MD [facility] [address] [address] 02/16/2024 15:00:00 02/16/2024 16:22:24 Neoplasm of parotid gland 533980137 D49.0 R59.0 The left parotid lesion is [...] Name 04/24/2024 2 [place] Vinnie Salcido [id number] Vinnie Salcido 02/16/2024 1 [facility] - DOS ON OR AFTER 2022 - MEDICARE ADVANTAGE [place] (MEDICARE REPLACEMENT/A DVANTAGE - PPO) Vinnie Salcido [id number] Vinnie Salcido Notes Date Note Type Note Provider Name and Address Organization Details Recorded Time 02/16/2024 text/html ROS as noted in the HPI [facility] [place] - niece translatingparotid masspatient cannot feel the mass and does not know how long it has been present 12/17/23 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
== END 2025-04-24 11:55 | disposition home or self-care (01) ==
LOC: HO.HHCLNP 11:54
PROVIDERS: Visit Provider Student in an Organized Health Care Education/Training Program
DX: Z00.00 Encounter for general adult medical examination without abnormal findings (principal)
CPT/HCPCS: 87086

== ENCOUNTER 2025-04-25 08:08 | Outpatient (REF) | payer OTHER, SELFPAY ==
--- OUTSIDE RECORDS SUMMARY | 2025-04-20 11:30 | XMS_ITS | Encounter Summary ---
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) Social History Tobacco Use Types Packs/Day Years [...] Care Team (Late st Contact Info) Description 06/08/2025 1:30 PM EST Office Visit [facility] [address] [place] [address] Kristen Cedeno MD [address] [place] [address] 10/22/2025 11:00 AM EDT Office Visit [facility] [address] [place] [address] Temo, Lynne, OD [address] [place] [address] Pending Results Name Type Priority Associated Diagnoses Date /Time Automated Visual Field, Extended - OU - Both Eyes Ophthalmology Routine Suspicious optic nerve cupping of both eyes 04/20/2025 12:42 PM EDT documented as of this encounter Visit Diagnoses Diagnosis Suspicious optic nerve cupping of both eyes- Primary documented in this encounter Additional Health Concerns Assessment Noted Time PHQ-9 Depression Total Score: 17 025 11:42 AM EDT documented as of this encounter Care Teams Orthopedically Impaired Teacher Relationship Specialty Start Date End Date Kristen Cedeno MD [address] [place] [phone] PCP - General Internal Medicine 11/27/22 documented as of this encounter
--- OUTSIDE RECORDS SUMMARY | 2025-04-24 13:40 | XMS_ITS | Encounter Summary ---
Author Organization [employer] Address [address] [facility] [address] [place] [address] Care Team Providers Care Process Excellence Manager Name Role Phone Kristen Cedeno MD Primary Care Pro vider Encounter Details Date Type Department Care Team ([facility] Contact Info) Description 04/24/2025 1:40 PM EDT Office Visit [facility] [address] [place] [phone] Kristen Flood MD [address] [place] [address] Dysuria (Primary Dx); Burning with urination; Balanitis Social History Tobacco Use Types Packs/Day Years [...] AM EDT documented as of this encounter Last Filed Vital Signs Vital Sign Reading Time Taken Comments Blood Pressure 117/69 04/24/2025 1:13 PM EDT Pulse 84 04/24/2025 1:13 PM EDT Temperature 35.6 C (96 F) 04/24/2025 1:13 PM EDT Respiratory Rate 20 04/24/2025 1:13 PM EDT Oxygen Saturation 95% 04/24/2025 1:13 PM EDT Inhaled Oxygen Concentration - - Weight 96.1 kg (211 lb 12.8 oz) 04/24/2025 1:13 PM EDT Height 175.3 cm (5' 9 ) 04/24/2025 1:13 PM EDT Body Mass Index 31.28 04/24/2025 1:13 PM EDT documented in this encounter Progress Notes * Kristen Zimmerman MD - 04/24/2025 1:40 PM EDT SUBJECTIVE: Vinnie Salcido is a 64 y.o. year old male who presents for acute visit . Acute Concerns: Patient reports that 4 days ago he was using a public bathroom and felt acut te burning sensation when he urinated, burning sensation localized on meatus area, patient denies urinary frequency, urgency, suprapubic pain Patient also has lower back pain but states she was carrying something heavy and this triggered this pain I notice labs recently ordered by PCP are not done I advise patient to go to the lab and do them Social History Social History Narrative Not on file Problem List[1] Dyslipidemia Gastroesophageal reflux disease Hearing loss Hypothyroidism Internal hemorrhoids Multinodular goiter Polyp of colon Seizure disorder ([facility] ([facility]) Varicose veins of lower extremity Atrial fibrillation ([facility]) ([facility]) Obese Depression with anxiety Health care maintenance Type 2 diabetes mellitus without complication, without long-term current use of insulin ([facility]) Hypertension Penicillin allergy Knee pain Right shoulder pain Parkinson disease ([facility]) ([facility]) Lesion of parotid gland Onychomycosis Hemiparesis, unspecified hemiparesis etiology, unspecified laterality ([facility]) Dysphagia MECHE (obstructive sleep apnea) Balanitis Family History[2] Review of Systems Constitutional: Negative. HENT: Negative. Respiratory: Negative. Cardiovascular: Negative. Genitourinary: Positive for dysuria, flank pain and penile pain. Negative for decreased urine volume, difficulty urinating, enuresis, frequency, genital sores, hematuria, penile discharge, penile swelling, scrotal swelling, testicular pain and urgency. Musculoskeletal: Positive for back pain. OBJECTIVE: Vitals: 04/24/25 1313 BP: 117/69 BP Location: Right arm Patient Position: Sitting BP Cuff Size: Large adult Pulse: 84 Resp: 20 Temp: 96 ??F (35.6 ??C) TempSrc: Temporal SpO2: 95% Weight: 211 lb 12.8 oz (96.1 kg) Height: 5' 9 (1.753 m) Physical Exam Constitutional: Appearance: Normal appearance. Cardiovascular: Rate and Rhythm: Normal rate and regular rhythm. Pulmonary: Effort: Pulmonary effort is normal. Breath sounds: Normal breath sounds. Abdominal: General: Abdomen is flat. Palpations: Abdomen is soft. Genitourinary: Penis: Erythema present. No phimosis, paraphimosis, hypospadias, tenderness, discharge, swelling orlesions. Comments: Erythema localized on meatus and surrounding area Musculoskeletal: Right lower leg: No edema. Left lower leg: No edema. Neurological: Mental Status: He is alert. Follow Up: No follow-ups on file. Medications Ordered Prior to Encounter[3] Problem List Items Addressed This Visit Balanitis Likely balanitis Hygiene counseling done Apply clotrimazole BID Relevant Medications clotrimazole (Lotrimin) 1 % cream Dysuria - Primary UA negative for UTI I send sample to culture patient to be call if it comes back positive Other Visit Diagnoses Burning with urination Relevant Orders POCT Urinalysis (Completed) Culture, Urine, Routine [1] Patient Active Problem List Diagnosis Dyslipidemia Gastroesophageal reflux disease Hearing loss Hypothyroidism Internal hemorrhoids Multinodular goiter Polyp of colon Seizure disorder (CMS/HCC) (HCC) Varicose veins of lower extremity Atrial fibrillation (CMS/HCC) (HCC) Obese Depression with anxiety Health care maintenance Type 2 diabetes mellitus without complication, without long-term current use of insulin (HCC) Hypertension Penicillin allergy Knee pain Right shoulder pain Parkinson disease (CMS/HCC) (HCC) Lesion of parotid gland Onychomycosis Hemiparesis, unspecified hemiparesis etiology, unspecified laterality (HCC) Dysphagia MECHE (obstructive sleep apnea) Balanitis Dysuria [2] Family History Problem Relation Name Age of Onset Heart disease Mother Other (HTN) Father Prostate cancer Father Other (DM2) Sister Other (colon ca at 67 y of age) Sister Other (DM2) Brother Prostate cancer Brother Other (lung cancer 2nd brother) Brother Other (niece 1.throat ca and niece 2 : brain ca) Niece [3] Current Outpatient Medications on File Prior to Visit Medication Sig Dispense Refill acetaminophen (Tylenol) 500 MG tablet Take 2 tablets (1,000 mg) by mouth every 6 (six) hours if needed for moderate pain or fever for up to 25 doses. 30 tablet 0 albuterol 108 (90 Base) MCG/ACT inhaler Inhale 2 puffs every 6 (six) hours if needed for wheezing or shortness of breath for up to 10 days. 18 g 2 Alcohol Swabs (Alcohol Prep) 70 % pads USE FOUR TIMES DAILY OR DIRECTED 100 each 11 atorvastatin (Lipitor) 40 MG tablet TAKE 1 TABLET BY MOUTH EVERYDAY AT NOON 90 tablet 1 Blood Glucose Monitoring Suppl (Operation Supply Drop Verio Flex System) w/Device kit USE DIRECTED TEST BLOODSUGAR FOUR TIMES DAILY carbidopa-levodopa CR (Sinemet CR) 25-100 MG ER tablet Take 2 tablets by mouth in the morning and 2tablets at noon and 2 tablets in the evening. Do not crush, chew, or split. carvedilol (Coreg) 3.125 MG tablet TAKE 1 TABLET BY MOUTH TWICE DAILY AT NOON AND BEDTIME 180 tablet 1 cholecalciferol (Vitamin D-3) 25 MCG tablet TAKE 1 TABLET BY MOUTH EVERYDAY AT NOON 90 tablet 0 cyanocobalamin (Vitamin B-12) 500 MCG tablet Take 1 tablet (500 mcg) by mouth 3 (three) times a week. 90 tablet 0 flecainide (Tambocor) 50 MG tablet Take 50 mg by mouth. BID glucose blood (walkbyTouch Verio) test strip USE DIRECTED TO TEST BLOOD SUGAR ONCE DAILY 100 each 11 glucose blood test strip 1 each by Other route. lacosamide (Vimpat) 150 mg tablet tablet Take 150 mg by mouth 2 times daily. Lancets (walkbyTouch Delica Plus Oxuele22D) [facility] USE DIRECTED TO TEST BLOOD SUGAR FOUR TIMES DAILY 100 each 0 levothyroxine (Synthroid, Levoxyl) 50 MCG tablet lidocaine-prilocaine (Emla) 2.5-2.5 % cream APPLY TOPICALLY TO THE AFFECTED AREA(S) EVERY DAY NEEDED FOR MILD PAIN 30 g 1 loratadine (Claritin) 10 MG tablet losartan (Cozaar) 50 MG tablet TAKE 1 TABLET BY MOUTH EVERYDAY AT NOON 90 tablet 0 metFORMIN (Glucophage) 500 MG tablet TAKE 1 TABLET BY MOUTH TWICE DAILY AT NOON AND IN THE EVENING WITH FOOD 60 tablet 5 omeprazole (PriLOSEC) [address] capsule TAKE 1 CAPSULE BY MOUTH EVERYDAY AT NOON 90 capsule 0 PARoxetine (Paxil) 20 MG tablet Take 20 mg by mouth in the morning. psyllium (Metamucil Smooth Texture) 58.6 % powder Take 5.12 g (3 g of fiber) by mouth 2 times daily. 283 g 2 sennosides (Senna-Time) 8.6 MG tablet Take 1 tablet (8.6 mg) by mouth 2 times daily. 180 tablet 0 Trulicity 3 MG/0.5ML solution auto-injector INJECT ONE PEN (= 3MG) SUBCUTANEOUSLY ONCE A WEEK DIRECTED 2 mL 3 Xarelto 20 MG tablet Take 1 tablet (20 mg) by mouth with evening meal. Take with food. 30 tablet 2 No current facility-administered medications on file prior to visit. documented in this encounter Miscellaneous Notes * Assessment & Plan Note - Kristen Zimmerman MD - 04/24/2025 2:14 PM EDT Associated Problem(s): Dysuria UA negative for UTI I send sample to culture patient to be call if it comes back positive * Assessment & Plan Note - Kristen Zimmerman MD - 04/24/2025 2:13 PM EDT Associated Problem(s): Balanitis Likely balanitis Hygiene counseling done Apply clotrimazole BID documented in this encounter Plan of Treatment Upcoming Encounters Date Type Department Care Team (Late st Contact Info) Description 06/08/2025 1:30 PM EST Office Visit [facility] [address] [place] [address] Kristen Cedeno MD [address] [place] [address] 10/22/2025 11:00 AM EDT Office Visit [facility] [address] [place] [address] Temo, Lynne, OD [address] [place] [address] Scheduled Orders Name Type Priority Associated Diagnoses Orde r Schedule Culture, Urine, Routine Microbiology Routine Burning with urination Expected: 04/24/2025 (Approximate), Expires: 04/24/2026 documented as of this encounter Procedures Procedure Name Priority Date/Time Associated Diagnosis Comments POCT URINALYSIS DIPSTICK Routine 04/24/2025 2:01 PM EDT Burning with urination documented in this encounter Results * (ABNORMAL) POCT Urinalysis (04/24/2025 2:01 PM EDT) Color, UA Dark Suki Clarity, UA Clear Glucose, UA Negative Bilirubin, UA Comment:small Ketones, UA Positive Spec Grav, UA 1.030 Blood, UA Negative Negative, None Detected pH, UA 5.5 Protein, UA Trace Urobilinogen, UA 2.0 Leukocytes, UA Negative Negative, Rare, Trace Nitrite, UA Negative Negative, None Detected Appearance, UA dark yellow QC Media Lot # [id number] Lot# Expiration Date 63,026 Urine (Urine, Random) 04/24/2025 2:01 PM EDT Kristen Zimmerman MD POINT OF CARE TEST EN TER/EDIT ORDERABLES Final Result documented in this encounter Visit Diagnoses Diagnosis Dysuria- Primary Burning with urination Dysuria Balanitis Balanoposthitis documented in this encounter Additional Health Concerns Assessment Noted Time PHQ-9 Depression Total Score: 17 025 11:42 AM EDT documented as of this encounter Care Teams Process Excellence Manager Relationship Specialty Start Date End Date Kristen Cedeno MD [address] [place] [id number] PCP - General Internal Medicine 11/27/22 documented as of this encounter
--- OUTSIDE RECORDS SUMMARY | 2025-04-25 08:21 | XMS_ITS | Encounter Summary ---
Author Organization [employer] Address [address] [facility] 7t [place] [address] Care Team Providers Care Substitute School Nurse Name Role Phone Carlotta Paulson FANY Primary Care Provider [phone] Kristen Cedeno MD Primary Care Pro vider Encounter Details Date Type Department Care Team (Late st Contact Info) Description 07/29/2022 Orders Only [facility] [address] [place] [phone] Sarah Hwang LPN Social History Tobacco Use [...] Description 06/08/2025 1:30 PM EST Office Visit [facility] [address] [place] [address] Kristen Cedeno MD [address] [place], [place] [phone] 10/22/2025 11:00 AM EDT Office Visit [facility] [address] [place] [address] [phone] Lynne Plascencia, OD [address] [place] [address] documented as of this encounter Visit Diagnoses Not on filedocumented in this encounter Care Teams Substitute School Nurse Relationship Specialty Start Date End Date Carlotta Paulson FNP [address] [place] [address] PCP - General Family Medicine 02/22/22 11/26/22 Kristen Cedeno MD [address] [place] [address] PCP - General Internal Medicine 11/27/22 documented as of this encounter
--- OUTSIDE RECORDS SUMMARY | 2025-04-25 08:21 | XMS_ITS | Clinical Summary ---
Author Organization [facility] Address [address] [place], [place] [phone] Phone Care Team Providers Care Company Manager Name Role Phone Pcp, Unknown Primary Care [...] file Medical Devices Not on file [place] [place] [address] [employer] MEDICARE REPLACEMENT [place] [id number] MEDICARE REPLACEMENT MEDICARE REPLACEMENT MEDICARE [place] [place] [address] [employer] MEDICARE [place]AC[place] [address] [address] CARE MEDICARE REPLACEMENT Care Teams Company Manager Relationship Specialty Start Date End Date Pcp, Unknown PCP - General 04/20/23 Additional Source Comments The information contained in this document represents components of the legal health record. It is not the complete legal health record.[facility]
--- OUTSIDE RECORDS SUMMARY | 2025-04-25 08:21 | XMS_ITS | Encounter Summary ---
Author Organization [employer] Address [address] [facility] 7t [place] [address] Care Team Providers Care Wood Patternmaker Apprentice Name Role Phone Carlotta Paulson FANY Primary Care Provider [phone] Kristen Cedeno MD Primary Care Pro vider Encounter Details Date Type Department Care Team (Late st Contact Info) Description 07/03/2022 Orders Only [facility] [address] [place], [place] [phone] Lillie Rogers LPN Social History Tobacco Use [...] Description 06/08/2025 1:30 PM EST Office Visit [facility] [address] [place], [place] [phone] Kristen Cedeno MD [address] [place], [place] [phone] 10/22/2025 11:00 AM EDT Office Visit [facility] [address] [place], [place] [phone] Lynne Plascencia, OD [address] [place], [place] [phone] documented as of this encounter Visit Diagnoses Not on filedocumented in this encounter Care Teams Wood Patternmaker Apprentice Relationship Specialty Start Date End Date Carlotta Paulson FNP [address] [place] [phone] PCP - General Family Medicine 02/22/22 11/26/22 Kristen Cedeno MD [address] [place] [address] PCP - General Internal Medicine 11/27/22 documented as of this encounter
--- OUTSIDE RECORDS SUMMARY | 2025-04-25 08:21 | XMS_ITS | Encounter Summary ---
Author Organization [employer] Address [address] [facility] 7t [place] [address] Care Team Providers Care Business Excellence Manager Name Role Phone Kristen Cedeno MD Primary Care Pro vider Encounter Details Date Type Department Care Team (Latest Contact Info) Description 04/24/2025 Travel Social History Tobacco Use Types Packs/Day Years [...] Description 06/08/2025 1:30 PM EST Office Visit [facility] [address] [place] [address] Kristen Cedeno MD [address] [place] [address] 10/22/2025 11:00 AM EDT Office Visit [facility] [address] [place] [address] Temo, Lynne, OD [address] [place] [address] documented as of this encounter Visit Diagnoses Not on filedocumented in this encounter Additional Health Concerns Assessment Noted Time PHQ-9 Depression Total Score: 17 025 11:42 AM EDT documented as of this encounter Care Teams Business Excellence Manager Relationship Specialty Start Date End Date Kristen Cedeon MD [address] [place] [phone] PCP - General Internal Medicine 11/27/22 documented as of this encounter
--- OUTSIDE RECORDS SUMMARY | 2025-04-25 08:21 | XMS_ITS | Encounter Summary ---
Author Organization [employer] Address [address] [facility] 7t [place] [address] Care Team Providers Care Teaching Young Name Role Phone Kristen Cedeno MD Primary Care Pro vider Encounter Details Date Type Department Care Team ([facility] st Contact Info) Description 12/15/2024 Orders Only [facility] [address] [place] [address] Kristen Cedeno MD [address] [place] [address] Social History Tobacco Use Types Packs/Day Years [...] Description 06/08/2025 1:30 PM EST Office Visit [facility] [address] [place] [address] Kristen Cedeno MD [address] [place] [address] 10/22/2025 11:00 AM EDT Office Visit [facility] [address] [place] [address] Temo, Lynne, OD [address] [place] [address] documented as of this encounter Visit Diagnoses Not on filedocumented in this encounter Additional Health Concerns Assessment Noted Time PHQ-9 Depression Total Score: 8 02/29/20 24 9:34 AM EDT documented as of this encounter Care Teams Teaching Young Relationship Specialty Start Date End Date Kristen Cedeno MD [address] [place] [address] PCP - General Internal Medicine 11/27/22 documented as of this encounter
--- OUTSIDE RECORDS SUMMARY | 2025-04-25 08:21 | XMS_ITS | Encounter Summary ---
Author Organization [employer] Address [address] [facility] 7t [place] [address] Care Team Providers Care Electrical Appliance Mechanic Name Role Phone Kristen Cedeno MD Primary Care Pro vider Encounter Details Date Type Department Care Team (Latest Contact Info) Description 04/20/2025 Travel Social History Tobacco Use Types Packs/Day [...] Description 06/08/2025 1:30 PM EST Office Visit [facility] [address] [place] [address] Kristen Cedeno MD [address] [place] [address] 10/22/2025 11:00 AM EDT Office Visit [facility] [address] [place] [address] Temo, Lynne, OD [address] [place] [address] documented as of this encounter Visit Diagnoses Not on filedocumented in this encounter Additional Health Concerns Assessment Noted Time PHQ-9 Depression Total Score: 17 025 11:42 AM EDT documented as of this encounter Care Teams Electrical Appliance Mechanic Relationship Specialty Start Date End Date Kristen Cedeno MD [address] [place] [phone] PCP - General Internal Medicine 11/27/22 documented as of this encounter
--- OUTSIDE RECORDS SUMMARY | 2025-04-25 08:21 | XMS_ITS | Encounter Summary ---
Author Organization [employer] Address [address] [facility] 7t [place] [address] Care Team Providers Care Railroad Construction Director Name Role Phone Kristen Cedeno MD Primary Care Pro vider Reason for Visit * Reason Onset Date Comments Nurse Triage 04/24/2025 Encounter Details Date Type Department Care Team ([facility] st Contact Info) Description 04/24/2025 Telephone [facility] [address] [place] [address] Kristen Cedeno MD [address] [place] [address] Nurse Triage Social History Tobacco Use Types Packs/Day Years [...] encounter Miscellaneous Notes * Telephone Encounter - Sameera Carvalho RN - 04/24/2025 12:06 PM EDT T/C returned to pt utilizing S #[id number] to triage. Pt reporting burning with urination and bilateral flank pain x 4 days. Pt denies increase urinary frequency or urgency, abdominal pain, fever, urineodor, or any other Sx. Pt last urinated an hour ago, normal amount. Pt offered WIC or ASK tomorrow.Pt states will come to [place] this afternoon. Pt given [place] hours of operation. Protocol Used: Urination Pain - Male (Adult) Protocol-Based Disposition: See in Office or Video Visit Today Positive Triage Question: * All other males with painful urination, or patient wants to be seen * All higher-acuity triage questions were negative * Telephone Encounter - Baljinder Guan - 04/24/2025 11:42 AM EDT Symptom: Urination Pain Outcome: Schedule a same-day appointment or talk to a nurse or provider today Reason: Caller denied all higher acuity questions The caller accepted this outcome. Pt also indicating lower back pain Mohawk speaking documented in this encounter Plan of Treatment Upcoming Encounters Date Type Department Care Team (Late st Contact Info) Description 06/08/2025 1:30 PM EST Office Visit [facility] [address] [place] [address] Kristen Cedeno MD [address] [place] [address] 10/22/2025 11:00 AM EDT Office Visit [facility] [address] [place], [place] [phone] Lynne Plascencia, OD [address] [place] [address] documented as of this encounter Visit Diagnoses Not on filedocumented in this encounter Additional Health Concerns Assessment Noted Time PHQ-9 Depression Total Score: 17 025 11:42 AM EDT documented as of this encounter Care Teams Railroad Construction Director Relationship Specialty Start Date End Date Kristen Cedeno MD [address] [place], [place] [phone] PCP - General Internal Medicine 11/27/22 documented as of this encounter
--- OUTSIDE RECORDS SUMMARY | 2025-04-25 08:21 | XMS_ITS | Data Portability ---
Author Organization [facility] - [facility], Allergy Address [address] [address] Assessment Encounter Date Assessment Date Assessment LastModified [...] n; with imaging guidance (SURG) 2023 024 [facility], [address] [place], [address], 11:42:51 Imaging None recorded. Medication Orders None [...] contr ast No observ ation record ed. [email or web address] Not Available 01/27 09:27:52 Result Notes None recorded. 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 Medical Equipment None Reported. Allergies Allergen ID Allergen Name Allergen Category Reaction Reaction Severity Criticality Documentation Date Start Date Code Code System Note Provider Name and Address Organization Details Recorded Time 051003 aspirin medicatio n other Not available Not available 11/09/2023 1191 RxNorm React ion: Unkno wn; Not Available [facility] 4 01:21:22 587542 Product containin g penicilli n (product) medicatio n other Not available Not available 11/09/2023 99619 8001 SNOMED React ion: Unkno wn; Not Available [facility] 4 01:21:23 Medications Name Sig Start [...] 0.5 mg tablet active Medicatio n ID: [id number] Br and Name: benztropi ne Send Method: E-Prescri bed Subs Allowed: subs OK Medica tionGener icName: benztropi ne Not Available Not Available Not Available clindamyci n HCl 300 mg capsule active Medicatio n ID: [id number] Br and Name: clindamyc in HCl Send [...] 8.6 mg tablet active Medicatio n ID: [id number] Br and Name: senna Sen d Method: [...] 20 mg tablet active Medicatio n ID: [id number] Br and Name: prednison e Send Method: E-Prescri bed Subs Allowed: subs OK Specia l Instructi on: TAKE 1 TABLET BY MOUTH EVERY DAY Medic ationGene ricName: prednison e Not Available Not Available Not Available clindamyci n HCl 150 mg capsule active Medicatio n ID: [id number] Br and Name: clindamyc in HCl Send [...] 25 mcg tablet active Medicatio n ID: [id number] Br and Name: levothyro xine Send Method: [...] % topical cream active Medicatio n ID: [id number] Br and Name: hydrocort isone Sen d Method: E-Prescri bed Subs Allowed: subs OK Specia l Instructi on: APPLY A THIN LAYER TOPICALLY AFFECTED AREA(S) TWICE DAILY Med icationGe nericName : hydrocort isone Not Available Not Available Not Available gemfibrozi l 600 mg tablet active Medicatio n ID: [id number] Br and Name: gemfibroz il Send Method: [...] 25 mg tablet active Medicatio n ID: [id number] Br and Name: losartan Send Method: E-Prescri bed Subs Allowed: subs OK Specia l Instructi on: TAKE 1 TABLET BY MOUTH EVERY EVENING M edication GenericNa me: losartan Not Available Not Available Not Available omeprazole 20 mg capsule,de layed release active Medicatio n ID: [id number] Br and Name: omeprazol e Send Method: E-Prescri bed Subs Allowed: subs OK Specia l Instructi on: TAKE 1 CAPSULE BY MOUTH TWICE DAILY AT NOON AND IN THE EVENING M edication GenericNa me: omeprazol e Not Available Not Available Not Available codeine 10 mg-guaifen esin 100 mg/5 mL oral liquid active Medicatio n ID: [id number] Br and Name: codeine-g uaifenesi n Send Method: E-Prescri bed Subs Allowed: subs OK Specia l Instructi on: TAKE 5 ML BY MOUTH EVERY 6 HOURS NEEDED FOR COLD SYMPTOMS Medicatio nGenericN mario: codeine-g uaifenesi n Not Available Not Available Not Available polyethyle ne glycol 3350 17 gram/dose oral powder active Medicatio n ID: [id number] Br and Name: polyethyl vandana glycol 3350 [...] 100 mg tablet active Medicatio n ID: [id number] Br and Name: doxycycli ne hyclate S end Method: E-Prescri bed Subs Allowed: subs OK Specia l Instructi on: TAKE 1 TABLET BY MOUTH TWICE DAILY UNTIL FINISHED Medicatio nGenericN mario: doxycycli ne hyclate Not Available Not Available Not Available loratadine 10 mg tablet active Medicatio n ID: [id number] Br and Name: loratadin e Send Method: [...] (2,000 unit) capsule active Medicatio n ID: [id number] Br and Name: cholecalc iferol (vitamin D3) Send Method: E-Prescri bed Subs Allowed: subs OK Specia l Instructi on: TAKE 1 CAPSULE BY MOUTH EVERYDAY AT NOON [facility] cationGen ericName: cholecalc iferol (vitamin D3) Not [...] Updated DateTime 02/16/2024 175.26 cm 34.4 kg/m2 290767.02 g Vicky Parra [place] - [facility] 02/16/2024 15:52:15 Social History None recorded. Functional Status None recorded. Mental Status None recorded. Family History Nothing Reported. Medical History Condition Response Anxiety Y Hypertension Y Depression Y Asthma Y Past Encounters Encounter ID Performer Location Encounter Start Date Encounter Closed Date Diagnosis/Indication Diagnosis SNOMED-CT Code Diagnosis ICD10 Code Diagnosis IMO Codes Diagnosis Note [id number] GUILHERME MARTINEZ MD [facility] [address] [address] 02/16/2024 15:00:00 02/16/2024 16:22:24 Neoplasm of parotid gland 877609591 D49.0 R59.0 The left parotid lesion is [...] Name 04/24/2024 2 [place] Vinnie Salcido [id number] Vinnie Salcido 02/16/2024 1 [facility] - DOS ON OR AFTER 2022 - MEDICARE ADVANTAGE [place] (MEDICARE REPLACEMENT/A DVANTAGE - PPO) Vinnie Salcido [id number] Vinnie Salcido Notes Date Note Type Note Provider Name and Address Organization Details Recorded Time 02/16/2024 text/html ROS as noted in the HPI [place] - niece translatingparotid masspatient cannot feel the mass and does not know how long it has been present 12/17/23 MR neck w/wo Rayus - left parotid [id number] mass pmhx - parkinsons, DC, Afib on anticoagulation, DM, HTN, asthma, seizures GUILHERME MARTINEZ MD [address] [place] [address], [place], [address], [facility] - [facility] 02/16/2024 16:21:54
--- OUTSIDE RECORDS SUMMARY | 2025-04-25 08:21 | XMS_ITS | Encounter Summary ---
Author Organization [employer] Address [address] [facility] [address] [place] [address] Care Team Providers Care Plumbing Technician Name Role Phone Kristen Cedeno MD Primary Care Pro vider Reason for Visit * Reason Comments Med Refill Encounter Details Date Type Department Care Team ([facility] st Contact Info) Description 03/09/2024 Refill [facility] MEDICINE [address] [place] [address] Kristen Cedeno MD [address] [place] [address] Hyperlipidemia, unspecified hyperlipidemia type Social History Tobacco [...] Description 06/08/2025 1:30 PM EST Office Visit [facility] MEDICINE [address] [place] [address] Kristen Cedeno MD [address] [place] [address] 10/22/2025 11:00 AM EDT Office Visit [facility] OPTOMETRY [address] [place] [address] Temo, Lynne, OD [address] [place] [address] documented as of this encounter Visit Diagnoses Diagnosis Hyperlipidemia, unspecified hyperlipidemia type documented in this encounter Additional Health Concerns Assessment Noted Time PHQ-9 Depression Total Score: 8 02/29/20 24 9:34 AM EDT documented as of this encounter Care Teams Plumbing Technician Relationship Specialty Start Date End Date Kristen Cedeno MD [address] [place] [address] PCP - General Internal Medicine 11/27/22 documented as of this encounter
--- OUTSIDE RECORDS SUMMARY | 2025-04-25 08:22 | XMS_ITS | Clinical Summary ---
Author Organization [employer] Address [address] [facility] [address] [place] [address] Care Team Providers Care Harvester Operator Name Role Phone Kristen Cedeno MD Primary Care Pro vider Allergies Active Allergy Reactions Criticality Noted Date Comments Aspirin Angioedema 08/31/2022 Penicillin G 02/10/2024 Penicillins Angioedema 08/31/2022 Terbinafine 12/11/2021 Other reaction(s): GI Problems Medications Blood Glucose Monitoring Suppl (TerraEchos Verio Flex System) w/Device kit USE DIRECTED TEST BLOOD SUGAR FOUR TIMES DAILY 023 Active glucose blood test strip 1 each by Other route. Active Lancets (Inverted Edgeuch Delica Plus [id number]) misc USE DIRECTED TO TEST BLOOD SUGAR FOUR TIMES DAILY 100 each 023 Active levothyroxine (Synthroid, Levoxyl) 50 MCG tablet 023 Active Xarelto 20 MG tablet Take 1 tablet (20 mg) by mouth with evening meal. Take with food. 30 tablet 2 023 Active acetaminophen (Tylenol) 500 MG tablet Take 2 tablets (1,000 mg) by mouth every 6 (six) hours if needed for moderate pain or fever for up to 25 doses. 30 tablet 024 Active lidocaine-priloca ine (Emla) 2.5-2.5 % cream APPLY TOPICALLY TO THE AFFECTED AREA(S) EVERY DAY NEEDED FOR MILD PAIN 30 g 1 024 Active flecainide (Tambocor) 50 MG tablet Take 50 mg by mouth. BID 024 Active glucose blood (OneTouch Verio) test stripIndications: Type 2 diabetes mellitus without complication, without long-term current use of insulin (HCC) USE DIRECTED TO TEST BLOOD SUGAR ONCE DAILY 100 each 11 025 Active cyanocobalamin (Vitamin B-12) 500 MCG tablet Take 1 tablet (500 mcg) by mouth 3 (three) times a week. 90 tablet 025 Active metFORMIN (Glucophage) 500 MG tablet TAKE 1 TABLET BY MOUTH TWICE DAILY AT NOON AND IN THE EVENING WITH FOOD 60 tablet 5 025 Active atorvastatin (Lipitor) 40 MG tabletIndications :Hyperlipidemia, unspecified hyperlipidemia type TAKE 1 TABLET BY MOUTH EVERYDAY AT NOON 90 tablet 1 025 Active carvedilol (Coreg) 3.125 MG tablet TAKE 1 TABLET BY MOUTH TWICE DAILY AT NOON AND BEDTIME 180 tablet 1 025 Active loratadine (Claritin) 10 MG tablet Active Alcohol Swabs (Alcohol Prep) 70 % padsIndications:T ype 2 diabetes mellitus without complication, without long-term current use of insulin (HCC) USE FOUR TIMES DAILY OR DIRECTED 100 each 11 025 Active omeprazole (PriLOSEC) [address] capsule TAKE 1 CAPSULE BY MOUTH EVERYDAY AT NOON 90 capsule 025 Active losartan (Cozaar) 50 MG tablet TAKE 1 TABLET BY MOUTH EVERYDAY AT NOON 90 tablet 025 Active Trulicity 3 MG/0.5ML solution auto-injector INJECT ONE PEN (= 3MG) SUBCUTANEOUSLY ONCE A WEEK DIRECTED 2 mL 3 025 Active cholecalciferol (Vitamin D-3) 25 MCG tablet TAKE 1 TABLET BY MOUTH EVERYDAY AT NOON 90 tablet 025 Active PARoxetine (Paxil) 20 MG tablet Take 20 mg by mouth in the morning. 025 Active albuterol 108 (90 Base) MCG/ACT inhalerIndication s:Strep pharyngitis Inhale 2 puffs every 6 (six) hours if needed for wheezing or shortness of breath for up to 10 days. 18 g 2 025 Active sennosides (Senna-Time) 8.6 MG tablet Take 1 tablet (8.6 mg) by mouth 2 times daily. 180 tablet Active lacosamide (Vimpat) 150 mg tablet tablet Take 150 mg by mouth 2 times daily. Active psyllium (Metamucil Smooth Texture) 58.6 % powder Take 5.12 g (3 g of fiber) by mouth 2 times daily. 283 g 2 2025 Active carbidopa-levodop a CR (Sinemet CR) 25-100 MG ER tablet Take 2 tablets by mouth in the morning and 2 tablets at noon and 2 tablets in the evening. Do not crush, chew, or split. Active clotrimazole (Lotrimin) 1 % creamIndications: Balanitis Apply topically 2 times daily for 28 days. 30 g 025 2024 Active clotrimazole (Lotrimin) 1 % creamIndications: Balanitis Apply topically 2 times daily for 28 days. 30 g 2 2024 Discontinued Active Problems Problem Noted Date Diagnosed Date Balanitis 04/24/2025 Assessment & Plan (04/24/2025 2:13 PM EDT): Likely balanitis Hygiene counseling done Apply clotrimazole BID Dysuria 04/24/2025 Assessment & Plan (04/24/2025 2:14 PM EDT): UA negative for UTI I send sample to culture patient to be call if it comes back positive Dysphagia 03/13/2025 MECHE (obstructive sleep apnea) 03/13/2025 Hemiparesis, unspecified hem iparesis etiology, unspecified laterality 10/31/2024 Lesion of parotid gland 02/29/2024 Onychomycosis 02/29/2024 Parkinson disease (CMS/HCC) 11/26/2023 Right shoulder pain 05/24/2023 Knee pain 01/23/2023 Assessment & Plan (01/23/2023 5:23 PM EDT): -Right knee XR 2021: -Osteoarthritis medial knee joint compartment with secondary genu varus. No effusion. -Numerous varicose veins. -Referred today for BL XR, will f result at next appt -For now Tylenol PRN Atrial fibrillation (CMS/HCC) 12/23/2022 Assessment & Plan (01/23/2023 5:07 PM EDT): Pt w Afib on AC, hx of NM f w cards -Echo 08/2021: EF 60-65% ,mild TR and MR , no pulm HTN Denies melenas,BRPR nor epistaxis ,no CVs symptoms -continue care w jewelry internship -states has f up in 01/2023 Assessment & Plan (12/23/2022 12:32 PM EDT): Pt w Afib on AC, hx of NM f w cards -Echo 08/2021: EF 60-65% ,mild TR and MR , no pulm HTN Denies melenas,BRPR nor epistaxis ,no CVs symptoms -continue care w jewelry internship -states has f up in 01/2023 Obese 12/23/2022 Assessment & Plan (01/23/2023 5:14 PM EDT): Advised pt to improve diet and exercise,discussed healthy life style -pt has upcomming visit w shoe clerk x 02/22/2023 -Recently started GLP1 w no side fx -Referred to sleep med x MECHE eval I gave today information to pt about specialist's office to call for appt. -Will monitor weight at next appt. Assessment & Plan (12/23/2022 12:49 PM EDT): Advised pt to improve diet and exercise,discussed healthy life style -pt has upcomming visit w shoe clerk x 02/22/2023 -to start GLP1 today x DM -will help w obesity as well -Referred to sleep med x MECHE eval Depression with anxiety 12/23/2022 Assessment & Plan (01/23/2023 5:19 PM EDT): Depression and anxiety-PHQ9: 10 today ,denies jhony,hallucinations nor SI On paroxetine -px here -pt is following w psychotx from [facility] in this clinic -states has f up pt in 01/05/2023 -advise [...] here -pt is following w psychotx from [facility] in this clinic -states has f up pt in 01/05/2023 -advise [...] > 5 [place] and to repeat in 5 y --referred to GI - gave info for appt. -vaccination: s/p tdap 2019, covid 19 x4 and Bivalent x1, p20 [...] > 5 y ago [place] pt [place] told to have polyps and to repeat in 5 y --referred today to GI -vaccination: s/p tdap 2019, covid 19 x4 today Bivalent dose here [...] and 2h after biggest meal. -referred to stone polisher and chlorinator operator - pd appt. Assessment & Plan [...] med changes -DM labs -referred today to stone polisher and chlorinator operator Hypertension 12/23/2022 Assessment & Plan (01/23/2023 5:09 PM EDT): -EKG report from 10/2022 NSR ,QTC 441, minimal voltage x LVH -continue BP meds-controlled today -continue to f w cards -referred to stone polisher -Pending to get appt. -Microalbuminuria ordered at last visit, but not done. Will reorder at next appt. Assessment & Plan (12/23/2022 12:48 PM EDT): -EKG report from 10/2022 NSR ,QTC 441, minimal voltage x LVH -continue BP meds-controlled today -continue to f w cards -referred today to stone polisher -microalb today Penicillin allergy 12/23/2022 Assessment & Plan (01/23/2023 5:22 PM EDT): Pt reports hx of PNC allergy since youth -can not recall well about incident -will offer solar sales referral to clarify if true allergy at future visits Assessment & Plan (12/23/2022 12:54 PM EDT): Pt reports hx of PNC allergy since youth -can not recall well about incident -will offer solar sales referral to clarify if true allergy at [...] surrounding the thyroid gland. -pt f w lead javascript developer x thyroid nodules and hypothyroidism -seen already [...] surrounding the thyroid gland. -pt f w lead javascript developer x thyroid nodules and hypothyroidism -states has [...] -referred today to GI today Seizure disorder ([facility]/HCC) 08/01/2018 Assessment & Plan (01/23/2023 5:25 PM EDT): seizure dx-used to f w neurologist at [facility] but lost care x last years Reports had a seizure a year ago.-reports to be complaint w meds -referred back to his neurologist at [facility] to continue care as well to be eval for chronic upper ext tremors and memory loss. -Has appt for 03/24/2023. -12/2022: Vit B12 wnl at 232, but borderline low given poor memory, will start daily Vit B12. Assessment & Plan (12/23/2022 12:28 PM EDT): seizure dx-used to f w neurologist at [facility] but lost care x last years Reports had a seizure a year ago.-reports to be complaint w meds -referred back to his neurologist at [facility] to continue care as well to [...] Encounters Date Type Department Care Team Description 04/24/2025 1:40 PM EDT Office Visit [facility] [address] [place] [address] Kristen Flood MD Dysuria (Primary Dx); Burning with urination; Balanitis 04/24/2025 Travel 04/24/2025 Telephone [facility] [address] [place], [place] [phone] Kristen Cedeno MD Nurse Triage 04/20/2025 11:30 AM EDT Office Visit [facility] [address] [place] [address] Temo, Lynne, OD Suspicious optic nerve cupping of both eyes (Primary Dx) 04/20/2025 Travel 04/12/2025 Orders Only GENERIC EXTERNAL DATA DEPARTMENT Provider, Generic External Data 03/19/2025 Telephone [facility] [address] Kristen Cedeno MD recall May. 03/13/2025 10:45 AM EDT Office [place] [facility] [address] Kristen Cedeno MD Dysphagia, unspecified type (Primary Dx); Type 2 diabetes mellitus without complication, without long-term current use of insulin (CMS/HCC); Strep pharyngitis; Colon cancer screening; Gastroesophageal reflux disease, unspecified whether esophagitis present; Pain in both knees, unspecified chronicity; Health care maintenance; Hypertension, unspecified type; Dyslipidemia; Class 1 obesity due to excess calories without serious comorbidity with body mass index (BMI) of 34.0 to 34.9 in adult; Atrial fibrillation, unspecified type (CMS/HCC); Multinodular goiter; Anxiety; Depression with anxiety; Parkinson's disease with dyskinesia without fluctuating manifestations (CMS/HCC); Onychomycosis; MECHE (obstructive sleep apnea) 03/13/2025 Travel 03/12/2025 [facility]phone [facility] [place] [address] Kristen Cedeno MD chart prep 03/06/2025 Refill [facility] [place] [address] Kristen Cedeno MD 03/05/2025 Patient Outreach [facility] [place] [address] Kristen Cedeno MD Pre-visit Planning (SDOH screening was completed on 10/31/2024) 02/21/2025 Refill [facility] [address] Kristen Cedeno MD 02/16/2025 3:00 PM EDT Office [facility] [place] [address] Mani May MD Sore throat 02/16/2025 Travel 01/31/2025 Refill [facility] [address] [place] [address] Kristen Cedeno MD 01/23/2025 Refill [facility] [address] [place] [address] Kristen Cedeno MD Type 2 diabetes mellitus without complication, without long-term current use of insulin ([facility]) from Last 3 Months Immunizations Immunization Administration [...] Mass Index 31.28 04/24/2025 1:13 PM EDT Plan of Treatment Upcoming Encounters Date Type Department Care Team (Late st Contact Info) Description 06/08/2025 1:30 PM EST Office Visit [facility] [address] [place] [phone] Kristen Cedeno MD [address] [place] [address] 10/22/2025 11:00 AM EDT Office Visit [facility] [address] [place] [address] Lynne Plascencia, OD [address] [place] [address] Health Maintenance Due Date Last Done Comments [...] 10/31/2024 SDOH Screening 10/31/2025 10/31/2024 Tobacco Screening 04/24/2026 04/24/2025 Eye Exam 04/20/2027 04/20/2025, 03/29, 04/20/2025, Additional history exists DTaP/Tdap/Td Vaccines (2 - [...] 04/24/2025 2:01 PM EDT Burning with urination TSH Routine 04/12/2025 4:28 PM EDT T4, FREE Routine 04/12/2025 4:28 PM EDT POCT GLYCATED HEMOGLOBIN, TOTAL Routine 03/13/2025 11:02 AM EDT Type 2 diabetes mellitus without complication, without long-term current use of insulin ([facility]) POCT GLUCOSE Routine 03/13/2025 11:01 AM EDT Type 2 diabetes mellitus without complication, without long-term current use of insulin ([facility]) POCT INFLUENZA B (ID NOW RAPID MOLECULAR) [...] Recently Relevant to Health Maintenance Results * (ABNORMAL) POCT Urinalysis (04/24/2025 2:01 [...] Media Lot # [id number] Lot# Expiration Date Urine (Urine, Random) 04/24/2025 2:01 PM EDT us Kristen Zimmerman MD POINT OF CARE TEST EN TER/EDIT ORDERABLES Final Result * TSH (04/12/2025 4:28 PM EDT) Thyroid Stimulating Hormone 0.42 0.32 - 4.0 uIU/mL [facility] Comment:TSH 3rd Generation ( [employer]) 04/12/2025 4:28 PM EDT 04/12/2025 4:28 PM EDT Generic External Data Provider LAB BLOOD ORDERAB LES Final Result Performing Organization Address City/[facility]/ZIP Co de Phone Number [facility] [address] [place] [phone] * T4, Free (04/12/2025 4:28 PM EDT) Free T4 (Free Thyroxine) 0.93 0.71 - 1.85 ng/dL [facility] 04/12/2025 4:28 PM EDT 04/12/2025 4:28 PM EDT Generic External Data Provider LAB BLOOD ORDERAB LES Final Result Performing Organization Address [facility] Co de Phone Number [facility] [address] [place] [phone] * POCT Hgb A1c (03/13/2025 11:02 AM EDT) Pathologist [facility] Hemoglobin A1C 5.6 4.0 - 5.7 % QC Media Lot # [id number] Lot# Expiration Date [id number] Blood 03/13/2025 11:0 2 AM EDT Kristen Stoo MD POINT OF CARE JACQUELINE T ENTER/EDIT ORDERABLES Final Result * POCT Glucose (03/13/2025 11:01 AM EDT) Pathologist [facility] Glucose Blood, POC 123 60 - 200 mg/dL QC Media Lot # [id number] Lot# Expiration Date [id number] Blood Capillary blood specimen / Unknown 03/13/2025 11:01 AM EDT Kristen Soto MD POINT OF CARE JACQUELINE T ENTER/EDIT ORDERABLES Final Result * Influenza B (ID NOW Rapid Molecular) (02/16/2025 2:36 PM EDT) [facility] Influenza B Negative Negative, Indeterminate [facility] Swab 02/16/2025 2:36 PM EDT us Mani May MD POINT OF CARE TEST ENTER/EDIT OR DERABLES Final Result Performing Organization Address [facility] Co de Phone Number [facility] [address] [place] [phone] * Influenza A (ID NOW Rapid Molecular) (02/16/2025 2:36 PM EDT) [facility] Influenza A Negative Negative, Indeterminate [facility] Swab 02/16/2025 2:36 PM EDT us Mani May MD POINT OF CARE TEST ENTER/EDIT OR DERABLES Final Result Performing Organization Address [facility] de Phone Number [facility] [address] [place] [phone] * POCT Rapid COVID Ag (02/16/2025 2:36 PM EDT) [facility] Rapid COVID Ag Negative [facility] Swab 02/16/2025 2:36 PM EDT us Mani May MD POINT OF CARE TEST ENTER/EDIT OR DERABLES Final Result Performing Organization Address [facility] de Phone Number [facility] [address] [place] [phone] * POCT rapid strep A manually resulted (02/16/2025 2:36 PM EDT) [facility] Rapid Strep A Screen Negative Negative, None Detected [facility] Swab 02/16/2025 2:36 PM EDT us Mani May MD POINT OF CARE TEST ENTER/EDIT OR DERABLES Final Result Performing Organization Address [facility] de Phone Number [facility] [address] [place] [phone] * (ABNORMAL) Albumin, Random Urine W/Creatinine (05/02/2024 9:57 AM EST) Pathologist [facility] Creatinine, Urine 203.44 mg/dL [facility] Microalbumin Urine 161.0 mg/L [facility] Microalbum Creatinine Ratio Ur 79.1(H) <30 ug/mg cr [facility] Comment:Albumin/Creatinine R atio Reference Ranges: Normal: < 30 ug/mg creatinine Microalbuminuria: 30 - 300 ug/mg creatinineClinical Albuminuria: > 300 ug/mg creatinine Urine (Urine, Random) 05/02/2024 9:57 AM EST 05/02/2024 11:11 AM EST us Kristen Soto MD LAB URINE ORDERAB LES Final Result Performing Organization Address [facility] de Phone Number [facility] [address] [place] [phone] * Hepatitis C Antibody with Reflex to HCV, RNA, Quantitative, Real-Time PCR (05/02/2024 9:57 AM EST) Pathologist [facility] Hepatitis C Antibody Nonreactive Nonreactive [facility] Comment:Antibodies to HCV no t detected; does not exclude early acuteHCV infection. Blood Venous blood specimen / Unknown 05/02/2024 9:57 AM EST 05/02/2024 11:28 AM EST us Kristen Soto MD LAB BLOOD ORDERAB LES Final Result Performing Organization Address [facility] Co de Phone Number [facility] [address] [place] [phone] * HIV-1/2 Antigen and Antibodies, Fourth Generation, with Reflexes (05/02/2024 9:57 AM EST) Pathologist [facility] HIV AB/AG Nonreactive Nonreactive [facility] Comment:HIV-1 p24 Ag and/or HIV-1/HIV-2 Ab not detected.A test result that is nonreactive does not exclude thepossibility of exposure to or infection with HIV-1 and/orHIV-2. Nonreactive results in this assay for individualswith prior exposure to HIV-1 and/or HIV-2 may be due toantigen and antibody levels that are below the limit ofdetection of this assay.The [employer] HIV Ag/Ab Combo assay result andsupplemental assay results should be interpreted inconjunction with the patient's clinical presentation,history and other laboratory results. If the results areinconsistent with clinical evidence, additional testing issuggested to confirm the result. Blood Venous blood specimen / Unknown 05/02/2024 9:57 AM EST 05/02/2024 11:28 AM EST us Kristen Soto MD LAB BLOOD ORDERAB LES Final Result [facility] [address] [place] [phone] * (ABNORMAL) Lipid Panel, Standard (05/02/2024 9:57 AM EST) Triglycerides 182(H) <150 mg/dL [facility] Comment:Desirable Triglyceri de: less than 150 mg/dLBorderline High Triglyceride 150-199 mg/dLHigh Triglyceride: 200-499 mg/dLVery High Triglyceride: greater than or equal to 5OO mg/dL Cholesterol 145 <200 mg/dL [facility] Comment:Desirable Cholestero l: less than 200 mg/dLBorderline High Cholesterol: 200-239 mg/dLHigh Cholesterol: greater than 239 mg/dL LDL Cholesterol Calculated 59 <100 mg/dL [facility] Comment:Desirable LDL: less than 100 mg/dLNear Optimal/Above Optimal LDL: 110- 129 mg/dLBorderline High LDL: 130-159 mg/dLHigh LDL: 160-189 mg/dLVery High LDL: greater than or equal to 190 mg/dL HDL Cholesterol 50 >40 mg/dL [facility] Comment:Desirable HDL: great er than 40 mg/dL Note: This HDL assay may give artificially low results in patients with liver disease. Blood Venous blood specimen / Unknown 05/02/2024 9:57 AM EST 05/02/2024 11:28 AM EST Kristen Soto MD LAB BLOOD ORDERAB LES Final Result [facility] [address] [place] [phone] from Last 3 Months or Most Recently Relevant to Health Maintenance Insurance [facility] < [address] [place] [id number] Care Teams Harvester Operator Relationship Specialty Start Date End Date Kristen Cedeno MD [address] [place] [phone] PCP - General Internal Medicine 11/27/22
--- OUTSIDE RECORDS SUMMARY | 2025-04-25 08:22 | XMS_ITS | Encounter Summary ---
Author Organization [employer] Address [address] [place] [address] Care Team Providers Care Beverage Sales Consultant Name Role Phone Carlotta Paulson Primary Care Provider [phone] Kristen Cedeno MD Primary Care Pro vider Reason for Visit * Reason Onset Date Comments Other 11/25/2022 Encounter Details Date Type Department Care Team (Late st Contact Info) Description 11/25/2022 Telephone [facility] [address] [place] [address] Carlotta Paulson FNP [address] [place], [place] [phone] Other Social History Tobacco Use Types Packs/Day [...] - 12/07/2022 11:13 AM EDT Tc to [facility], they stated pt is discharged as there [...] - 11/26/2022 10:43 AM EDT [facility]. Patient has never been seen with Dr. Paulson. Advised will forward another message and Facility advised that without orders pt is going to be discharge from services and denied services. * Telephone Encounter - Cristy Cummings - 11/25/2022 2:45 PM EDT Tc from Viktoriya at [facility] requesting a call back, in regards to PCP signing VNA orders. Patienthas never been seen with Dr. Paulson. Last visit was with Dr. Carbajal via tele on 01/08/22. documented in this encounter Plan of Treatment Upcoming Encounters Date Type Department Care Team (Late st Contact Info) Description 06/08/2025 1:30 PM EST Office Visit [facility] [address] [place] [address] Kristen Cedeno MD [address] [place] [address] 10/22/2025 11:00 AM EDT Office Visit [facility] [address] [place] [address] Lynne Plascencia, OD [address] [place] [address] documented as of this encounter Visit Diagnoses Not on filedocumented in this encounter Care Teams Beverage Sales Consultant Relationship Specialty Start Date End Date Carlotta Paulson FNP [address] [place] [address] PCP - General Family Medicine 02/22/22 11/26/22 Kristen Cedeno MD [address] [place] [phone] PCP - General Internal Medicine 11/27/22 documented as of this encounter
--- OUTSIDE RECORDS SUMMARY | 2025-04-25 08:22 | XMS_ITS | Encounter Summary ---
Author Organization [employer] Address [address] [place] [address] Care Team Providers Care Poultry Offal Icer Name Role Phone Kristen Cedeno MD Primary Care Pro vider Reason for Visit * Reason Comments Med Refill Encounter Details Date Type Department Care Team ([facility] st Contact Info) Description 06/22/2023 Refill [facility] [address] [place] [phone] Elena Mcfarlane MD [address] [place] [address] Social History Tobacco Use Types Packs/Day Years [...] Description 06/08/2025 1:30 PM EST Office Visit [facility] MEDICINE [address] [place] [address] Kristen Cedeno MD [address] [place] [address] 10/22/2025 11:00 AM EDT Office Visit [facility] OPTOMETRY [address] [place] [address] Temo, Lynne, OD [address] [place] [address] documented as of this encounter Visit Diagnoses Not on filedocumented in this encounter Additional Health Concerns Assessment Noted Time PHQ-9 Depression Total Score: 10 023 10:56 AM EDT documented as of this encounter Care Teams Poultry Offal Icer Relationship Specialty Start Date End Date Kristen Cedeno MD [address] [place] [address] [phone] PCP - General Internal Medicine 11/27/22 documented as of this encounter
[2025-04-25 11:27] LABS: MANUAL DIFF FLAG NO
[2025-04-25 11:53] LABS: Hematocrit 42.3 % (42.0-52.0); Hemoglobin 14.1 g/dl (14.0-18.0); Imm Gran Abs Auto 0.02 X10*3/uL (0.00-0.03); Imm Gran Pct Auto 0.2 % (0.0-0.4); Lymphocytes Absolute Auto 2.6 X10*3/uL (1.2-4.9); Mean Corpuscular HGB Conc 33.3 g/dl (31.0-36.0); Mean Corpuscular Hemoglobin 30.1 pg (27.0-33.0); Mean Corpuscular Volume 90.2 fL (80.0-98.0); NRBC Abs Auto 0.000 X10*3/uL (0.0-0.012); NRBC Pct Auto 0.0 /100WBC (0.0-0.2); Platelet Count 254 X10*3/uL (160-400); Red Blood Count 4.69 X10*6/uL (4.60-5.80); White Blood Count 8.2 X10*3/uL (4.8-10.8)
[2025-04-25 12:29] LABS: Alanine Aminotransferase 22 U/L (0-40); Albumin Level 4.6 g/dL (3.5-5.0); Alkaline Phosphatase 76 U/L (39-117); Anion Gap 12 (12-20); Aspartate Amino Transferase 23 U/L (5-37); Blood Urea Nitrogen 18 mg/dL (9-16); Calcium 9.8 mg/dL (8.4-10.2); Carbon Dioxide 29 mmol/L (22-29); Chloride 107 mmol/L (96-108); Cholesterol 102 mg/dL (<200); Estimated Glomerular Filt Rate > 60; HDL Cholesterol 39 mg/dL (>40); Potassium 5.0 mmol/L (3.3-5.1); Sodium 143 mmol/L (135-145); Total Protein 7.9 g/dL (6.5-8.0); Triglycerides 108 mg/dL (<150)
[2025-04-25 12:35] LABS: Microalbum/Creatinine Ratio Ur 41.6 ug/mg cr (<30)
[2025-04-25 12:51] LABS: Folate 7.8 ng/mL (> or = 4.0); Prostate Specific Antigen 0.36 ng/mL (<0.05-4.0); Vitamin B12 730 pg/mL (200-900)
[2025-04-25 13:54] LABS: CT PCR Urine NOT DETECTED (Not Detect.); NG PCR Urine NOT DETECTED (Not Detect.)
[2025-04-26 04:10] LABS: Syphilis Screen Nonreactive (Nonreactive)
[2025-04-26 04:36] LABS: HBsAGNum1 0.30 S/CO (0.00-0.99); HIV Num 1 0.11 S/CO (0.00-0.99); Hepatitis B Surface Antigen Negative (Negative); ~HepC Num1 0.08 S/CO (0.00-0.79); ~Hepatitis C Antibody Nonreactive (Nonreactive)
== END 2025-04-25 08:09 | disposition home or self-care (01) ==
LOC: HO.HHCL 08:08
PROVIDERS: PCP Student in an Organized Health Care Education/Training Program; Referring Provider Internal Medicine; Visit Provider Student in an Organized Health Care Education/Training Program
DX: Z00.00 Encounter for general adult medical examination without abnormal findings (principal); Z12.5 Encounter for screening for malignant neoplasm of prostate; Z11.59 Encounter for screening for other viral diseases; Z13.1 Encounter for screening for diabetes mellitus; Z13.21 Encounter for screening for nutritional disorder; Z13.6 Encounter for screening for cardiovascular disorders; Z20.2 Contact with and (suspected) exposure to infections with a predominantly sexual mode of transmission; R30.0 Dysuria
CPT/HCPCS: 80053; 80061; 82043; 82306; 82570; 82607; 82746; 83036; 84153; 85025; 86780; 86803; 87086; 87340; 87389; 87491; 87591